=== PATIENT | female | born 1930 | race Caucasian/White ===

== ENCOUNTER 2016-04-13 14:00 | Outpatient (CLI) | payer MEDICARE ==
[2016-04-13 14:21] LABS: Bilirubin Negative (Negative); Blood, Urine Trace (Negative); Glucose, Urine (Dipstick) Negative (Negative); Leukocyte Moderate (Negative); Nitrite Positive (Negative); Specific Gravity, Urine 1.025 (1.005-1.030); Urobilinogen 0.2 mg/dL (0.2-1.0)
[2016-04-13 14:30] LABS: Clarity Hazy (Clear); Protein, Urine (Dipstick) Negative (Neg-Trace)
[2016-04-13 14:31] LABS: Bacteria/HPF Rare-Few HPF (None Seen); Other Microscopic Description C&S SET UP; RBC/HPF 0-3 HPF (0-3); Squamous Epithelial 0-3 HPF (0-3)
== END 2016-04-13 14:01 | disposition home or self-care (01) ==
LOC: MADLAB 14:00
PROVIDERS: ATTEND Pediatrics
DX: N39.0 Urinary tract infection, site not specified (principal)
CPT/HCPCS: 81001; 87077; 87086; 87186

== ENCOUNTER 2016-04-27 14:37 | Outpatient (CLI) | payer MEDICARE ==
[2016-04-27 14:49] LABS: Blood, Urine Negative (Negative); Clarity Cloudy (Clear); Glucose, Urine (Dipstick) 100 mg/dL (Negative); Leukocyte Large (Negative); Nitrite Positive (Negative); Protein, Urine (Dipstick) 100 mg/dL (Neg-Trace)
[2016-04-27 15:01] LABS: Bilirubin Negative (Negative); Icto Negative (Negative)
[2016-04-27 15:03] LABS: Bacteria/HPF 3+ HPF (None Seen); Other Microscopic Description C&S SET UP; RBC/HPF 0-3 HPF (0-3); Squamous Epithelial 0-3 HPF (0-3); WBC/HPF 21-50 HPF (0-3)
== END 2016-04-27 14:38 | disposition home or self-care (01) ==
LOC: MADLAB 14:37
PROVIDERS: ATTEND Pediatrics
DX: R30.0 Dysuria (principal)
CPT/HCPCS: 36415; 81001; 87086

== ENCOUNTER 2016-05-08 13:17 | Outpatient (CLI) | payer MEDICARE ==
[2016-05-08 13:41] LABS: INR-International Normal Ratio 1.1; Prothrombin Time 14.9 SEC (12.0-14.7)
[2016-05-08 13:44] LABS: Hemoglobin 10.9 g/dL (12.0-16.0); Mean Corpuscular HGB CONC 35.3 g/dL (32.0-36.0); Mean Corpuscular Hemoglobin 33.9 pg (27.0-31.0); Mean Corpuscular Volume 96.2 fl (81.0-99.0); Mean Platelet Volume 6.8 fL (7.4-10.4); Platelet Count 243 thou/uL (130-400); White Blood Cell (WBC) Count 6.9 thou/uL (4.8-10.8)
[2016-05-08 13:47] LABS: Anion Gap 15 mmol/L (10-20); BUN (Urea Nitrogen) 19 mg/dL (9.8-20.1); Calc. Creatinine Clearance 0 mL/min (70-130); Calcium 9.1 mg/dL (7.8-10.44); Carbon Dioxide 23 mmol/L (23-31); Chloride 100 mmol/L (98-107); Estimated GFR-MDRD 68; Glucose 89 mg/dL (83-110); Potassium 4.4 mmol/L (3.5-5.1); Sodium 134 mmol/L (136-145)
[2016-05-08 14:06] LABS: Bilirubin Negative (Negative); Blood, Urine Negative (Negative); Clarity Slightly Cloudy (Clear); Glucose, Urine (Dipstick) 100 mg/dL (Negative); Leukocyte Small (Negative); Nitrite Positive (Negative); Protein, Urine (Dipstick) 30 mg/dL (Neg-Trace); Specific Gravity, Urine 1.015 (1.005-1.030)
[2016-05-08 14:33] LABS: RBC/HPF None Seen HPF (0-3)
[2016-05-08 14:34] LABS: Bacteria/HPF 1+ HPF (None Seen)
== END 2016-05-08 13:18 | disposition home or self-care (01) ==
LOC: MADLAB 13:17
PROVIDERS: ATTEND Pediatrics
DX: Z51.81 Encounter for therapeutic drug level monitoring (principal); Z79.01 Long term (current) use of anticoagulants; N39.0 Urinary tract infection, site not specified
CPT/HCPCS: 36415; 80048; 81001; 85027; 85610; 87086

== ENCOUNTER 2016-06-13 15:16 | Outpatient (CLI) | payer MEDICARE ==
[2016-06-13 15:29] LABS: Blood, Urine Negative (Negative); Glucose, Urine (Dipstick) Negative (Negative); Leukocyte Small (Negative); Nitrite Negative (Negative); Protein, Urine (Dipstick) 100 mg/dL (Neg-Trace); Specific Gravity, Urine 1.025 (1.005-1.030); Urobilinogen 0.2 mg/dL (0.2-1.0); pH, Urine 5.5 (5.0-9.0)
[2016-06-13 15:31] LABS: INR-International Normal Ratio 1.1; Prothrombin Time 14.8 SEC (12.0-14.7)
[2016-06-13 15:41] LABS: Bilirubin Small (Negative); Clarity Hazy (Clear)
[2016-06-13 15:43] LABS: Icto Negative (Negative)
[2016-06-13 15:44] LABS: RBC/HPF 0-3 HPF (0-3)
== END 2016-06-13 15:17 | disposition home or self-care (01) ==
LOC: MADLAB 15:16
PROVIDERS: ATTEND Pediatrics
DX: N39.0 Urinary tract infection, site not specified (principal); Z79.01 Long term (current) use of anticoagulants
CPT/HCPCS: 81001; 85610; 87086

== ENCOUNTER 2016-06-21 12:19 | Outpatient (CLI) | payer MEDICARE ==
[2016-06-21 12:47] LABS: INR-International Normal Ratio 1.3; Prothrombin Time 16.6 SEC (12.0-14.7)
== END 2016-06-21 12:20 | disposition home or self-care (01) ==
LOC: MADLAB 12:19
PROVIDERS: ATTEND Pediatrics
DX: Z51.81 Encounter for therapeutic drug level monitoring (principal); Z79.01 Long term (current) use of anticoagulants
CPT/HCPCS: 36415; 85610

== ENCOUNTER 2016-06-25 11:54 | Emergency (ER) | payer MEDICARE ==
[2016-06-25 13:00] LABS: #Lymphocytes 0.7 thou/uL (1.20-3.40); #Monocytes 0.6 thou/uL (0.11-0.59); #Neutrophils 5.9 thou/uL (1.40-6.50); %Basophils 0.7 % (0.0-1.0); %Eosinophils 0.5 % (0.0-10.0); %Lymphocytes 9.9 % (21.0-51.0); %Monocytes 8.3 % (0.0-10.0); %Neutrophils 80.5 % (42.0-75.0); Hemoglobin 11.6 g/dL (12.0-16.0); Mean Corpuscular HGB CONC 34.8 g/dL (32.0-36.0); Mean Corpuscular Hemoglobin 33.1 pg (27.0-31.0); Mean Corpuscular Volume 94.9 fl (81.0-99.0); Mean Platelet Volume 7.3 fL (7.4-10.4); Platelet Count 190 thou/uL (130-400); RBC Distribution Width 11.6 % (11.5-14.5); Red Blood Cell (RBC) Count 3.51 mill/uL (4.20-5.40); White Blood Cell (WBC) Count 7.3 thou/uL (4.8-10.8)
[2016-06-25 13:12] LABS: ALT (SGPT) 11 U/L (0-55); AST (SGOT) 18 U/L (5-34); Albumin 3.7 g/dL (3.4-4.8); Alkaline Phosphatase 60 U/L (40-150); Anion Gap 15 mmol/L (10-20); BUN (Urea Nitrogen) 29 mg/dL (9.8-20.1); Bilirubin, Total 0.5 mg/dL (0.2-1.2); Calc. Creatinine Clearance 0 mL/min (70-130); Calcium 9.3 mg/dL (7.8-10.44); Carbon Dioxide 23 mmol/L (23-31); Chloride 100 mmol/L (98-107); Estimated GFR-MDRD 51; Globulin 3.4 g/dL (2.4-3.5); Glucose 117 mg/dL (83-110); Potassium 4.5 mmol/L (3.5-5.1); Protein, Total 7.1 g/dL (5.8-8.1); Sodium 133 mmol/L (136-145)
[2016-06-25 13:16] LABS: CKMB 1.3 ng/mL (0-6.6); Troponin I Less than 0.010 ng/mL (< 0.028)
--- NOTE | 2016-06-25 13:30 | CT ---
NONCONTRAST CT OF THE BRAIN: Date: 06/25/16 INDICATION: Headache, nausea, and dizziness. COMPARISON: Prior exam dated 06/25/15. FINDINGS: No acute infarct, hemorrhage, or hydrocephalus present. There is stable chronic small vessel white m atter ischemic change. Skull and extracranial soft tissues appear within normal limits. IMPRESSION: No acute intracranial abnormality. POS: [facility]
--- NOTE | 2016-06-25 13:43 | RAD ---
FRONTAL VIEW CHEST: Date: 06/25/16 COMPARISON: 06/25/15. CLINICAL HISTORY: Dizziness. FINDINGS: The cardiac silhouette is enlarged, stable. Left-sided cardiac pacing device remains. There is patch y density at the lateral left lung base. Slight blunting of the costophrenic sulci noted. Biapical p leural irregularity is again seen. There is vascular calcification. IMPRESSION: 1. Evidence of CHF. 2. No significant interval change from 06/25/15 exam. POS: [facility]
== END 2016-06-25 13:43 | disposition home or self-care (01) ==
LOC: MADERS 11:54
DX: R51 Headache (principal); R42 Dizziness and giddiness; I25.10 Atherosclerotic heart disease of native coronary artery without angina pectoris; I10 Essential (primary) hypertension; Z95.0 Presence of cardiac pacemaker; Z79.899 Other long term (current) drug therapy; Z79.01 Long term (current) use of anticoagulants
CPT/HCPCS: 36415; 70450; 71010; 80053; 82553; 84484; 85025; 93005

== ENCOUNTER 2016-06-28 11:35 | Outpatient (CLI) | payer MEDICARE ==
[2016-06-28 17:51] LABS: INR-International Normal Ratio 1.3; Prothrombin Time 16.9 SEC (12.0-14.7)
== END 2016-06-28 11:36 | disposition home or self-care (01) ==
LOC: MADLAB 11:35
PROVIDERS: ATTEND Pediatrics
DX: Z51.81 Encounter for therapeutic drug level monitoring (principal); Z79.01 Long term (current) use of anticoagulants
CPT/HCPCS: 36415; 85610

== ENCOUNTER 2016-07-05 14:51 | Outpatient (CLI) | payer MEDICARE ==
[2016-07-05 15:07] LABS: INR-International Normal Ratio 1.2; Prothrombin Time 15.2 SEC (12.0-14.7)
== END 2016-07-05 14:52 | disposition home or self-care (01) ==
LOC: MADLAB 14:51
PROVIDERS: ATTEND Pediatrics
DX: I48.91 Unspecified atrial fibrillation (principal)
CPT/HCPCS: 36415; 85610

== ENCOUNTER 2016-07-12 14:26 | Outpatient (CLI) | payer MEDICARE ==
[2016-07-12 14:46] LABS: INR-International Normal Ratio 1.7
== END 2016-07-12 14:27 | disposition home or self-care (01) ==
LOC: MADLAB 14:26
PROVIDERS: ATTEND Pediatrics
DX: I48.91 Unspecified atrial fibrillation (principal)
CPT/HCPCS: 36415; 85610

== ENCOUNTER 2016-07-31 14:58 | Outpatient (CLI) | payer MEDICARE ==
[2016-07-31 15:28] LABS: INR-International Normal Ratio 1.6; Prothrombin Time 19.5 SEC (12.0-14.7)
[2016-07-31 16:51] LABS: Clarity Hazy (Clear)
[2016-07-31 16:52] LABS: Bacteria/HPF 4+ HPF (None Seen); Bilirubin Negative (Negative); Blood, Urine Negative (Negative); Glucose, Urine (Dipstick) Negative (Negative); Leukocyte Moderate (Negative); Nitrite Negative (Negative); Protein, Urine (Dipstick) Negative (Neg-Trace); RBC/HPF 0-3 HPF (0-3); Urobilinogen 0.2 mg/dL (0.2-1.0)
== END 2016-07-31 14:59 | disposition home or self-care (01) ==
LOC: MADLAB 14:58
PROVIDERS: ATTEND Pediatrics
DX: Z51.81 Encounter for therapeutic drug level monitoring (principal); I48.91 Unspecified atrial fibrillation; N39.0 Urinary tract infection, site not specified; Z79.01 Long term (current) use of anticoagulants
CPT/HCPCS: 36415; 81001; 85610; 87077; 87086; 87186

== ENCOUNTER 2016-08-13 14:39 | Outpatient (CLI) | payer MEDICARE ==
[2016-08-13 15:25] LABS: Clarity Hazy (Clear); Glucose, Urine (Dipstick) Negative (Negative); Leukocyte Small (Negative); Nitrite Negative (Negative); Protein, Urine (Dipstick) 30 mg/dL (Neg-Trace)
[2016-08-13 15:26] LABS: Bacteria/HPF 2+ HPF (None Seen); Bilirubin Negative (Negative); Blood, Urine Negative (Negative); RBC/HPF 0-3 HPF (0-3); Urobilinogen 0.2 mg/dL (0.2-1.0); WBC/HPF 21-50 HPF (0-3)
== END 2016-08-13 14:40 | disposition home or self-care (01) ==
LOC: MADLAB 14:39
PROVIDERS: ATTEND Pediatrics
DX: Z51.81 Encounter for therapeutic drug level monitoring (principal); Z87.440 Personal history of urinary (tract) infections; Z79.01 Long term (current) use of anticoagulants
CPT/HCPCS: 36415; 81001; 87086

== ENCOUNTER 2016-08-23 11:39 | Outpatient (CLI) | payer MEDICARE ==
[2016-08-23 13:30] LABS: INR-International Normal Ratio 1.9; Prothrombin Time 21.6 SEC (12.0-14.7)
== END 2016-08-23 11:40 | disposition home or self-care (01) ==
LOC: MADLAB 11:39
PROVIDERS: ATTEND Pediatrics
DX: Z51.81 Encounter for therapeutic drug level monitoring (principal); I48.91 Unspecified atrial fibrillation; Z79.01 Long term (current) use of anticoagulants
CPT/HCPCS: 36415; 85610

== ENCOUNTER 2016-09-10 15:23 | Outpatient (CLI) | payer MEDICARE ==
[2016-09-10 15:38] LABS: INR-International Normal Ratio 1.5; Prothrombin Time 18.2 SEC (12.0-14.7)
== END 2016-09-10 15:24 | disposition home or self-care (01) ==
LOC: MADLAB 15:23
PROVIDERS: ATTEND Pediatrics
DX: Z51.81 Encounter for therapeutic drug level monitoring (principal); I48.91 Unspecified atrial fibrillation; Z79.01 Long term (current) use of anticoagulants
CPT/HCPCS: 85610

== ENCOUNTER 2016-09-13 13:56 | Outpatient (CLI) | payer MEDICARE ==
[2016-09-13 14:22] LABS: INR-International Normal Ratio 1.4; Prothrombin Time 17.7 SEC (12.0-14.7)
== END 2016-09-13 13:57 | disposition home or self-care (01) ==
LOC: MADLAB 13:56
PROVIDERS: ATTEND Pediatrics
DX: Z51.81 Encounter for therapeutic drug level monitoring (principal); Z79.01 Long term (current) use of anticoagulants
CPT/HCPCS: 36415; 85610

== ENCOUNTER 2016-09-14 11:50 | Outpatient (CLI) | payer MEDICARE ==
[2016-09-14 13:15] LABS: Clarity Cloudy (Clear)
[2016-09-14 13:16] LABS: Bilirubin Negative (Negative); Blood, Urine Negative (Negative); Glucose, Urine (Dipstick) Negative (Negative); Leukocyte Moderate (Negative); Nitrite Negative (Negative); Protein, Urine (Dipstick) Negative (Neg-Trace); Urobilinogen 0.2 mg/dL (0.2-1.0)
[2016-09-14 13:31] LABS: Bacteria/HPF 2+ HPF (None Seen); Hyaline Casts/LPF 0-3 HYALINE CAST LPF (0-3 Hyaline); RBC/HPF 0-3 HPF (0-3); Squamous Epithelial 0-3 HPF (0-3)
== END 2016-09-14 11:51 | disposition home or self-care (01) ==
LOC: MADLAB 11:50
PROVIDERS: ATTEND Pediatrics
DX: N39.0 Urinary tract infection, site not specified (principal)
CPT/HCPCS: 36415; 81001; 87077; 87086

== ENCOUNTER 2016-09-20 10:28 | Outpatient (CLI) | payer MEDICARE ==
[2016-09-20 11:30] LABS: Clarity Hazy (Clear); Glucose, Urine (Dipstick) Negative (Negative); Leukocyte Small (Negative); Nitrite Negative (Negative); Protein, Urine (Dipstick) Negative (Neg-Trace)
[2016-09-20 11:31] LABS: Bacteria/HPF Rare-Few HPF (None Seen); Bilirubin Negative (Negative); Blood, Urine Negative (Negative); RBC/HPF 0-3 HPF (0-3); Urobilinogen 0.2 mg/dL (0.2-1.0)
== END 2016-09-20 10:29 | disposition home or self-care (01) ==
LOC: MADLAB 10:28
PROVIDERS: ATTEND Pediatrics
DX: N39.0 Urinary tract infection, site not specified (principal)
CPT/HCPCS: 81001; 87086

== ENCOUNTER 2016-10-04 17:01 | Outpatient (CLI) | payer MEDICARE ==
[2016-10-04 17:55] LABS: Clarity Slightly Cloudy (Clear); Leukocyte Moderate (Negative); Nitrite Positive (Negative); Specific Gravity, Urine 1.025 (1.002-1.036)
[2016-10-04 17:56] LABS: Glucose, Urine (Dipstick) Negative (Negative); Icto Negative (Negative); Protein, Urine (Dipstick) 100 mg/dL (Neg-Trace)
[2016-10-04 17:57] LABS: Bilirubin Negative (Negative); Blood, Urine Trace (Negative)
[2016-10-04 17:58] LABS: Bacteria/HPF 2+ HPF (None Seen); RBC/HPF 0-3 HPF (0-3)
== END 2016-10-04 17:02 | disposition home or self-care (01) ==
LOC: MADLAB 17:01
PROVIDERS: ATTEND Pediatrics
DX: N39.0 Urinary tract infection, site not specified (principal)
CPT/HCPCS: 81001; 87077; 87086; 87186

== ENCOUNTER 2016-10-08 13:30 | Outpatient (CLI) | payer MEDICARE ==
[2016-10-08 13:58] LABS: INR-International Normal Ratio 1.7; Prothrombin Time 20.9 SEC (12.0-14.7)
== END 2016-10-08 13:31 | disposition home or self-care (01) ==
LOC: MADLAB 13:30
PROVIDERS: ATTEND Pediatrics
DX: Z51.81 Encounter for therapeutic drug level monitoring (principal); Z79.01 Long term (current) use of anticoagulants
CPT/HCPCS: 36415; 85610

== ENCOUNTER 2016-10-18 15:58 | Outpatient (CLI) | payer MEDICARE ==
[2016-10-18 17:05] LABS: INR-International Normal Ratio 3.3; Prothrombin Time 34.8 SEC (12.0-14.7)
[2016-10-18 17:20] LABS: Clarity Cloudy (Clear); Specific Gravity, Urine 1.015 (1.005-1.030)
[2016-10-18 17:21] LABS: Bilirubin Negative (Negative); Blood, Urine Trace (Negative); Glucose, Urine (Dipstick) Negative (Negative); Leukocyte Moderate (Negative); Nitrite Positive (Negative); Protein, Urine (Dipstick) Negative (Neg-Trace); Urobilinogen 0.2 mg/dL (0.2-1.0); pH, Urine 5.5 (5.0-9.0)
[2016-10-18 17:22] LABS: RBC/HPF 0-3 HPF (0-3)
[2016-10-18 17:23] LABS: Bacteria/HPF 4+ HPF (None Seen)
== END 2016-10-18 15:59 | disposition home or self-care (01) ==
LOC: MADLAB 15:58
PROVIDERS: ATTEND Pediatrics
DX: N39.0 Urinary tract infection, site not specified (principal)
CPT/HCPCS: 81001; 85610

== ENCOUNTER 2016-10-25 15:24 | Outpatient (CLI) | payer MEDICARE ==
[2016-10-25 15:41] LABS: INR-International Normal Ratio 3.4
[2016-10-25 16:06] LABS: Bilirubin Small (Negative); Clarity Cloudy (Clear); Glucose, Urine (Dipstick) Negative (Negative); Icto Positive (Negative); Leukocyte Large (Negative); Nitrite Negative (Negative); Protein, Urine (Dipstick) 30 mg/dL (Neg-Trace); Urobilinogen 0.2 mg/dL (0.2-1.0)
[2016-10-25 16:07] LABS: Blood, Urine Trace (Negative)
[2016-10-25 16:08] LABS: Bacteria/HPF 4+ HPF (None Seen); Other Casts/LPF None Seen LPF (0-3 Hyaline); RBC/HPF 0-3 HPF (0-3)
== END 2016-10-25 15:25 | disposition home or self-care (01) ==
LOC: MADLAB 15:24
PROVIDERS: ATTEND Pediatrics
DX: Z51.81 Encounter for therapeutic drug level monitoring (principal); N39.0 Urinary tract infection, site not specified; Z79.01 Long term (current) use of anticoagulants
CPT/HCPCS: 81001; 85610; 87077; 87086; 87186

== ENCOUNTER 2016-11-01 14:17 | Outpatient (CLI) | payer MEDICARE ==
[2016-11-01 14:32] LABS: Prothrombin Time 45.8 SEC (12.0-14.7)
[2016-11-01 14:40] LABS: INR-International Normal Ratio 4.6
== END 2016-11-01 14:18 | disposition home or self-care (01) ==
LOC: MADLAB 14:17
PROVIDERS: ATTEND Pediatrics
DX: Z51.81 Encounter for therapeutic drug level monitoring (principal); Z79.01 Long term (current) use of anticoagulants
CPT/HCPCS: 36415; 85610

== ENCOUNTER 2016-11-08 14:38 | Outpatient (CLI) | payer MEDICARE ==
[2016-11-08 14:44] LABS: INR-International Normal Ratio 3.8
== END 2016-11-08 14:39 | disposition home or self-care (01) ==
LOC: MADLAB 14:38
PROVIDERS: ATTEND Pediatrics
DX: Z51.81 Encounter for therapeutic drug level monitoring (principal); I48.91 Unspecified atrial fibrillation; Z79.01 Long term (current) use of anticoagulants
CPT/HCPCS: 36415; 85610

== ENCOUNTER 2016-11-15 15:20 | Outpatient (CLI) | payer MEDICARE ==
[2016-11-15 15:34] LABS: Bilirubin Negative (Negative); Blood, Urine Trace (Negative); Glucose, Urine (Dipstick) Negative (Negative); Leukocyte Moderate (Negative); Nitrite Negative (Negative); Protein, Urine (Dipstick) 30 mg/dL (Neg-Trace); Specific Gravity, Urine 1.025 (1.005-1.030); Urobilinogen 0.2 mg/dL (0.2-1.0)
[2016-11-15 15:35] LABS: Clarity Hazy (Clear)
[2016-11-15 15:38] LABS: RBC/HPF 0-3 HPF (0-3); WBC/HPF 21-50 HPF (0-3)
[2016-11-15 15:39] LABS: Bacteria/HPF Rare-Few HPF (None Seen)
== END 2016-11-15 15:21 | disposition home or self-care (01) ==
LOC: MADLABSP 15:20
PROVIDERS: ATTEND Pediatrics
DX: N39.0 Urinary tract infection, site not specified (principal)
CPT/HCPCS: 81001; 87077; 87086; 87186

== ENCOUNTER 2016-11-19 17:41 | Outpatient (CLI) | payer MEDICARE ==
[2016-11-19 18:44] LABS: INR-International Normal Ratio 2.5; Prothrombin Time 27.8 SEC (12.0-14.7)
== END 2016-11-19 17:42 | disposition home or self-care (01) ==
LOC: MADLABSP 17:41
PROVIDERS: ATTEND Pediatrics
DX: Z51.81 Encounter for therapeutic drug level monitoring (principal); I48.91 Unspecified atrial fibrillation; Z79.01 Long term (current) use of anticoagulants
CPT/HCPCS: 85610

== ENCOUNTER 2017-09-13 12:24 | Emergency (ER) | payer MEDICARE ==
[2017-09-13 13:19] LABS: Bilirubin Negative (Negative); Blood, Urine Trace (Negative); Clarity Slightly Cloudy (Clear); Glucose, Urine (Dipstick) Negative (Negative); Leukocyte Large (Negative); Nitrite Positive (Negative); Protein, Urine (Dipstick) 100 mg/dL (Neg-Trace); Urobilinogen 0.2 mg/dL (0.2-1.0)
[2017-09-13 13:20] LABS: Bacteria/HPF 4+ HPF (None Seen); RBC/HPF 0-3 HPF (0-3)
[2017-09-13 13:29] LABS: #Monocytes 0.7 thou/uL (0.11-0.59); %Basophils 0.7 % (0.0-1.0); %Eosinophils 0.3 % (0.0-10.0); %Lymphocytes 14.1 % (21.0-51.0); %Monocytes 10.2 % (0.0-10.0); %Neutrophils 74.6 % (42.0-75.0); Mean Corpuscular HGB CONC 33.1 g/dL (32.0-36.0); Mean Corpuscular Volume 93.8 fL (78.0-98.0); Mean Platelet Volume 6.9 fL (7.4-10.4); Platelet Count 177 thou/uL (130-400); RBC Distribution Width 11.7 % (11.5-14.5); Red Blood Cell (RBC) Count 3.86 mill/uL (4.20-5.40); White Blood Cell (WBC) Count 6.7 thou/uL (4.8-10.8)
[2017-09-13] MEDS ORDERED: cefTRIAXone\\ROCEPHIN 1 GM VIAL ONE (13:40)
[2017-09-13 13:42] LABS: ALT (SGPT) 8 U/L (8-55); AST (SGOT) 15 U/L (5-34); Albumin 3.6 g/dL (3.4-4.8); Alkaline Phosphatase 55 U/L (40-150); Anion Gap 14 mmol/L (10-20); BUN (Urea Nitrogen) 24 mg/dL (9.8-20.1); Bilirubin, Total 0.5 mg/dL (0.2-1.2); Calc. Creatinine Clearance 0 mL/min (70-130); Calcium 8.3 mg/dL (7.8-10.44); Carbon Dioxide 24 mmol/L (23-31); Chloride 103 mmol/L (98-107); Estimated GFR-MDRD 41; Globulin 3.2 g/dL (2.4-3.5); Glucose 96 mg/dL (83-110); Magnesium 1.4 mg/dL (1.6-2.6); Potassium 3.5 mmol/L (3.5-5.1); Protein, Total 6.8 g/dL (6.0-8.3); Sodium 137 mmol/L (136-145)
--- NOTE | 2017-09-13 13:59 | RAD ---
AP VIEW CHEST: Date: 09/13/17 INDICATION: Hypotension and weakness. COMPARISON: Prior exam dated 06/25/16. IMPRESSION: There is moderate cardiomegaly with mild pulmonary vascular congestion. There is perihilar interstiti al prominence suspicious for edema. No definite pleural effusion or pneumothorax is evident. AICD is unchanged from the comparison. POS: [facility]
== END 2017-09-13 14:40 | disposition home or self-care (01) ==
LOC: MADERS 12:24
DX: N39.0 Urinary tract infection, site not specified (principal); J81.1 Chronic pulmonary edema; I25.10 Atherosclerotic heart disease of native coronary artery without angina pectoris; I10 Essential (primary) hypertension; G30.9 Alzheimer's disease, unspecified; F02.80 Dementia in other diseases classified elsewhere, unspecified severity, without behavioral disturbance, psychotic disturbance, mood disturbance, and anxiety
CPT/HCPCS: 71045; 80053; 81003; 81015; 83605; 83735; 84484; 85025; 87040; 87077; 87086; 87186; 93005; 96374; A4353; J0696

== ENCOUNTER 2017-12-11 11:57 | Inpatient (IN) | payer MEDICARE ==
[2017-12-11] MEDS ORDERED: Acetaminophen 325 MG TAB PO PRN (16:15)
[2017-12-11] MEDS: Atorvastatin Calcium 10 MG TAB PO SCH (20:45)
[2017-12-11] MEDS: Brimonidine Tartrate 0.2% Ophth Soln 5 ml Bottle EA EYE SCH (20:45)
[2017-12-11] MEDS: Carvedilol 6.25 MG TAB PO SCH (20:46)
[2017-12-11] MEDS: Mirtazapine 15 MG TAB PO SCH (20:46)
[2017-12-11] MEDS: Latanoprost 0.005% Ophth Soln 2.5 ml Bottle EA EYE SCH (20:46)
--- NOTE | 2017-12-11 23:33 | HP ---
Admitted to [facility] on 12/11/2017 CHIEF COMPLAINT: Weak. HISTORY OF PRESENT ILLNESS: Patient is an 87-year-old white female who has a history of atrial fibri llation, hypertension, has a pacemaker due to bradycardia. She has been on anticoagulants with Couma din due to the atrial fibrillation. She has a distant history of breast cancer, for which she has lyn d no recurrence and years ago had gastric bypass surgery. The patient lives at her home where she is independent of her ADLs, uses a walker to assist with ambulation and does not drive. She does have a caregiver that comes in and helps during the day and often times stays at night but patient was hos pitalized at [facility] from 12/05/2017 until 12/11/2017 after a fall and possible syncopal spell in her home. Apparently, she remembers falling, but nothing else a caregiver came in the follo wing morning, found her on the floor and she was a little confused and was bruised on the right shoul dee. She was taken to the emergency room and transferred to [facility]. She was evaluated for possible syncopal episode, and it is unclear from the history whether she just had a syncopal episode or trip and fall. She was found to have a urinary tract infection with E. coli wi th a colony count greater than 100,000. She was treated with nitrofurantoin, which the organism was sensitive to the little confusion that was noted on the initial examination are resolved. The patien t's evaluation disclosed that she had a closed mildly comminuted and mildly displaced impacted fractu re of the proximal humerus. Orthopedic surgeon recommended to managing this in a sling and both gene ral range of motion of the arms of the hand, wrist, and elbow and as she improves and pain diminishes for range of motion of the shoulder. Patient's syncopal spell was worked up with a CT scan of the c ircle of Basurto and neck did not show any significant stenosis. She did have a little retained dye i n the esophagus, possibly related to her previous gastric bypass. She has a CT scan of the brain, wh ich did not show any acute intracranial abnormality. Her chest x-ray showed a little prominence of t he cardiac silhouette in presence of a pacemaker. There was a little prominence of the interstitial tissue. Patient was seen in consultation by sugar cane grower. Echocardiogram was done and showed EF of 55%-60%, moderately dilated left atrium, and enlarged for the right atrium. Left ventricle was mary l. There was [id number] tricuspid regurgitation, mild mitral regurgitation. Patient had no mo re falls or syncopal episode. She has been up with assistance a chair and walk short distance, but s till very weak and arm is in a sling, but due to her age, it is elected to switch her to Eliquis 2.5 mg b.i.d. instead of a Coumadin. She received her first dose of that in the morning on 12/11/2017. INR on 12/11/2017, she was 2.7. Her Coumadin has been stopped and her Eliquis will be held until the INR drops further. Patient was transferred to [facility] due to the weakness and an effort to try to help with her general strength and conditioning and care of the fracture of the right proxima l humerus. The patient was seen soon after her arrival, she was alert and talkative and was able to give me a go od history. She said that she remembers falling, but nothing after that really not sure what happene d. Patient has no history of any seizures. PAST MEDICAL HISTORY: Chronic atrial fibrillation, pacemaker for bradycardia, hypertension, cancer of the right breast for which she has undergone a mastectomy approximately 8 years ago. No history of any recurrence. She has had a gastric bypass years ago. She has also had a kyphoplasty of lower thoracic vertebrae and she has glaucoma and hyperlipidemia. PRESENT MEDICINES: Eliquis 2.5 mg b.i.d. started on evening of 12/10/2017, omeprazole 20 mg b.i.d., Lumigan 1 drop in the eyes at bedtime, Alphagan 0.2% 1 drop in the eyes b.i.d., Xalatan 0.005% one dr op in the eyes at bedtime, mirtazapine 30 mg at bedtime, lisinopril 2.5 mg daily, atorvastatin 40 mg at bedtime, acetaminophen 650 mg every 4 hours as needed. ALLERGIES: No known allergies. REVIEW OF SYSTEMS: Patient does not think she has had any recent weight gain or loss. Patient has h ad no recent fever. Head/Neck: No complaints. Pulmonary: No shortness of breath. Cardiovascular: No chest pain. GI: No nausea, vomiting. No change in her bowel habits. : No complaint. Musc uloskeletal: Ambulates usually with a walker and late, he has been sore from right shoulder from the fall and fracture. She has been taking Tylenol this seems to have worked very well for pain. HABITS: Alcohol. ALLERGIES: None. TOBACCO: None. ADLs: Patient prior to this hospitalization was independent of her ADLs, ambulate with a walker. Lyn s caregiver to assist her though in the home and assist with her instrumental ADLs. She does not dri ve. CODE STATUS: DNR. PHYSICAL EXAMINATION: GENERAL: Shows a very pleasant, talkative 87-year-old white female who is sitting up in bed and appe ars very comfortable. VITAL SIGNS: Her temperature is 97.1, pulse 68, respirations 18, O2 sat 96%, blood pressure 182/93. Her weight is 124. HEAD: Normocephalic and atraumatic. EYES: Pupils were equal, round, reactive. HEENT: Sclerae are nonicteric. Patient had bilateral lens implants after cataracts removed. Ears: TMs were clear. Nose normal. Mouth throat. CARDIAC: Normal. NECK: Carotids were equal and strong. No bruits. Thyroid not enlarged. LUNGS: Clear. Chest, patient has a pacemaker in the left upper anterior chest. Patient has had a ri ght mastectomy. HEART: Regular rate. No murmurs. ABDOMEN: Soft, no organomegaly, no areas of tenderness in the right upper extremity. There is bruis ing and swelling over the right shoulder with extravasation of the blood down the upper arm. Patient has marked decreased motion in the upper arm due to the fracture. She has good motion of the elbow and wrist. Lower extremities: No edema. NEUROLOGIC: Patient is alert, oriented to what happened to where she is, place and person. She has no focal weakness except the right arm is in a sling due to the fracture. IMPRESSION: 1. Generalized weakness. A. Ordinarily independent of her ADLs and ambulates with a walker. B. Since her fall and fracture of the right proximal humerus. She has been weak and had difficulty managing ADLs and ambulating. 2. Closed mildly comminuted impacted with mild displacement of the proximal right humerus secondary to the fall on 12/05/2017. They managed nonoperatively with the sling and range of motion exercises within her tolerance that will be progressed within, has healing occurs. 3. Fall/possible syncopal episode. A. Etiology not known, possible episode of orthostatic hypotension versus fall from tripping. 4. Chronic atrial fibrillation. A. Rate control. B. On chronic anticoagulation originally, Coumadin switched to Eliquis on the evening of 12/10. 5. Status post pacemaker insertion for bradycardia. 6. Hypertension. 7. Cancer of the breast. A. Status post right mastectomy approximately 2009. B. No history of any recurrence. 8. Recent urinary tract infection with Escherichia coli with colony count greater than 100,000 and o rganisms sensitive to nitrofurantoin, they completed 5-day course of nitrofurantoin. 9. Glaucoma. 10. Code status: DNR. PLAN: Patient is admitted to [facility] for purposes of physical therapy and OT. Patient with hopes that her functional capability improved that will allow her to return to her home. Her arms b eing managed in a sling. We will allow range of motion exercises of the fingers, wrist, and elbow as she improves and after a couple of weeks, we will try range of motion of the shoulder. Her INR this morning was 2.7. Her Coumadin has been stopped and she received the dose of Eliquis this morning. We will hold the dosing of the Eliquis until INR drops a little lower probably a 3-day period. We wi ll recheck INR in the morning, up in a chair is tolerated, brought up with assistants only, see order s.
[2017-12-12] MEDS: Acetaminophen 325 MG TAB PO PRN ×2 (01:25→17:50)
[2017-12-12 05:43] LABS: #Basophils 0.1 thou/uL (0.0-0.2); #Eosinphils 0.1 thou/uL (0.0-0.7); #Lymphocytes 0.6 thou/uL (1.20-3.40); #Monocytes 0.6 thou/uL (0.11-0.59); #Neutrophils 4.5 thou/uL (1.40-6.50); %Eosinophils 1.5 % (0.0-10.0); %Lymphocytes 9.8 % (21.0-51.0); %Monocytes 10.9 % (0.0-10.0); %Neutrophils 76.9 % (42.0-75.0); Hemoglobin 10.9 g/dL (12.0-16.0); Mean Corpuscular HGB CONC 35.9 g/dL (32.0-36.0); Mean Corpuscular Hemoglobin 33.1 pg (27.0-31.0); Mean Corpuscular Volume 92.1 fL (78.0-98.0); Mean Platelet Volume 6.5 fL (7.4-10.4); Platelet Count 215 thou/uL (130-400); RBC Distribution Width 11.9 % (11.5-14.5); Red Blood Cell (RBC) Count 3.29 mill/uL (4.20-5.40); White Blood Cell (WBC) Count 5.8 thou/uL (4.8-10.8)
[2017-12-12 05:49] LABS: INR-International Normal Ratio 1.7; Prothrombin Time 19.9 SEC (12.0-14.7)
[2017-12-12 05:59] LABS: ALT (SGPT) 19 U/L (8-55); AST (SGOT) 30 U/L (5-34); Albumin 3.5 g/dL (3.4-4.8); Alkaline Phosphatase 68 U/L (40-150); Anion Gap 13 mmol/L (10-20); BUN (Urea Nitrogen) 12 mg/dL (9.8-20.1); Bilirubin, Total 1.2 mg/dL (0.2-1.2); Calc. Creatinine Clearance 44 mL/min (70-130); Calcium 8.9 mg/dL (7.8-10.44); Carbon Dioxide 29 mmol/L (23-31); Chloride 99 mmol/L (98-107); Estimated GFR-MDRD 67; Globulin 3.2 g/dL (2.4-3.5); Glucose 95 mg/dL (83-110); Potassium 3.8 mmol/L (3.5-5.1); Protein, Total 6.7 g/dL (6.0-8.3); Sodium 137 mmol/L (136-145)
[2017-12-12] MEDS: Brimonidine Tartrate 0.2% Ophth Soln 5 ml Bottle EA EYE SCH ×2 (08:42→20:03)
[2017-12-12] MEDS: Carvedilol 6.25 MG TAB PO SCH ×2 (08:43→17:47)
[2017-12-12] MEDS: Lisinopril 5 MG TAB PO SCH (08:43)
[2017-12-12] MEDS ORDERED: Lisinopril 5 MG TAB PO SCH (09:00)
--- NOTE | 2017-12-12 09:23 | PRG ---
DATE OF SERVICE: 12/12/2017 SUBJECTIVE: The patient said she is doing okay this morning, she is comfortable. Two ladies are in the room visiting with her that are her caregivers. They say that she has help around the clock 7 da ys a week and that will be the plans once she is able and if she is able to go home. OBJECTIVE: The patient is sitting up in bed, is alert, appears very comfortable and in no distress. Her vital signs show a temperature of 96.5, pulse 67, respirations 18, O2 sat 96% on room air, blood pressure 186/81 last evening it was 185/85. Her lungs were clear. Heart, regular rate. Right arm is in a sling. There is still swelling in the right shoulder and right arm is the same. Her labs shows a H&H of 10.9 and 30.3, white cell count 5800 with 77% segs, 10% lymphocytes, and a pl atelet count of 215,000. Her PT is 19.9, INR 1.7, sodium 137, potassium 3.9, BUN 12, creatinine 0.81 . Albumin is 3.5. ASSESSMENT: 1. Generalized weakness. A. Ordinarily independent of her ADLs and ambulates with a walker. B. Since her fall and fracture of the right proximal humerus. She has been weak and had difficulty managing ADLs and ambulating. C. PT and OT initiating care today as of 12/12/2017. 2. Closed mildly comminuted impacted with mild displacement of the proximal right humerus secondary to the fall on 12/05/2017. They managed nonoperatively with the sling and range of motion exercises within her tolerance that will be progressed within, as healing occurs. A. Stable and comfortable as of 12/12/2017. 3. Fall/possible syncopal episode. A. Etiology not known, possible episode of orthostatic hypotension versus fall from tripping. 4. Chronic atrial fibrillation. A. Rate control. B. On chronic anticoagulation originally, Coumadin switched to Eliquis on the evening of 12/10. 5. Status post pacemaker insertion for bradycardia. 6. Hypertension. A. Blood pressure not adequately controlled. 7. Cancer of the breast. A. Status post right mastectomy approximately 2009. B. No history of any recurrence. 8. Recent urinary tract infection with Escherichia coli with colony count greater than 100,000 and o rganisms sensitive to nitrofurantoin, they completed 5-day course of nitrofurantoin. 9. Glaucoma. 10. Code status: DNR. PLAN: PT and OT are initiating care. Her right arm will be kept in a sling, but allows some range of motion of the hand, wrist and elbow. Will continue to hold the Eliquis, recheck her PT and INR to [facility]. Once this is a little lower we will be able to restart this probably be 1-2 days before this will be restarted. We will increase the patient's lisinopril to 5 mg.
[2017-12-12] MEDS: Apixaban 5 MG TAB PO SCH ×5 (09:32→20:04)
[2017-12-12] MEDS: traMADol HCl 50 MG TAB PO PRN (19:54)
[2017-12-12] MEDS: Latanoprost 0.005% Ophth Soln 2.5 ml Bottle EA EYE SCH (20:03)
[2017-12-12] MEDS: Atorvastatin Calcium 10 MG TAB PO SCH (20:04)
[2017-12-12] MEDS: Mirtazapine 15 MG TAB PO SCH (20:04)
[2017-12-13] MEDS: Carvedilol 6.25 MG TAB PO SCH ×2 (12:35→17:24)
[2017-12-13] MEDS: Brimonidine Tartrate 0.2% Ophth Soln 5 ml Bottle EA EYE SCH ×2 (12:36→20:17)
[2017-12-13] MEDS: Lisinopril 5 MG TAB PO SCH (12:36)
[2017-12-13] MEDS: Apixaban 5 MG TAB PO SCH ×2 (12:36→20:17)
[2017-12-13 13:09] LABS: INR-International Normal Ratio 1.7; Prothrombin Time 20.1 SEC (12.0-14.7)
--- NOTE | 2017-12-13 14:52 | PRG ---
DATE OF SERVICE: 12/13/2017 SUBJECTIVE: The patient is feeling very good this morning. She is not hurting. She slept all night . Last night, she had some pain in the right upper arm from the fracture and the Tylenol did not hol d her. She was given tramadol 50 mg 1 tablet and this worked extremely well. She slept well and was free of pain. OBJECTIVE: GENERAL: The patient is sitting up in bed. She is alert, talkative, appears very comfortable. ROSENDO L SIGNS: Show a temperature of 97.3, pulse 71, respirations 20, O2 sat 95% on room air, blood pressu re 146/69 lying in bed. LUNGS: Clear. HEART: Regular rate. EXTREMITIES: Right shoulder, there is a yellowish bruise in the right shoulder with more bluish disc oloration of the extravasated blood down the right upper arm. The swelling seems to be a little less . ASSESSMENT: 1. Generalized weakness. A. Ordinarily independent of her ADLs and ambulates with a walker. B. Since her fall and fracture of the right proximal humerus. She has been weak and had difficulty managing ADLs and ambulating. C. PT and OT initiating care today as of 12/12/2017. D. Improved, tolerating sitting up in a chair and walking short distances as of 12/13/2017. 2. Closed mildly comminuted impacted with mild displacement of the proximal right humerus secondary to the fall on 12/05/2017. They managed nonoperatively with the sling and range of motion exercises within her tolerance that will be progressed within, as healing occurs. A. Stable and comfortable as of 12/13/2017. 3. Fall/possible syncopal episode. A. Etiology not known, possible episode of orthostatic hypotension versus fall from tripping. B. No recurrence as of 12/13/2017. 4. Chronic atrial fibrillation. A. Rate control. B. On chronic anticoagulation originally, Coumadin switched to Eliquis on the evening of 12/10. 5. Status post pacemaker insertion for bradycardia. 6. Hypertension. A. Blood pressure not adequately controlled. 7. Cancer of the breast. A. Status post right mastectomy approximately 2009. B. No history of any recurrence. 8. Recent urinary tract infection with Escherichia coli with colony count greater than 100,000 and o rganisms sensitive to nitrofurantoin, they completed 5-day course of nitrofurantoin. 9. Glaucoma. 10. Code status: DNR. PLAN: Continue present care. Continue PT, OT. Continue the right arm in the splint.
[2017-12-13] MEDS: traMADol HCl 50 MG TAB PO PRN (20:15)
[2017-12-13] MEDS: Atorvastatin Calcium 10 MG TAB PO SCH (20:16)
[2017-12-13] MEDS: Mirtazapine 15 MG TAB PO SCH (20:16)
[2017-12-13] MEDS: Latanoprost 0.005% Ophth Soln 2.5 ml Bottle EA EYE SCH (20:16)
[2017-12-14 05:49] LABS: INR-International Normal Ratio 1.5
[2017-12-14] MEDS: Apixaban 5 MG TAB PO SCH ×2 (08:11→20:35)
[2017-12-14] MEDS: Carvedilol 6.25 MG TAB PO SCH ×2 (08:11→16:55)
[2017-12-14] MEDS: Lisinopril 5 MG TAB PO SCH (08:11)
[2017-12-14] MEDS: Brimonidine Tartrate 0.2% Ophth Soln 5 ml Bottle EA EYE SCH ×2 (08:12→20:35)
[2017-12-14] MEDS: Acetaminophen 325 MG TAB PO PRN ×2 (12:55→17:25)
[2017-12-14] MEDS: traMADol HCl 50 MG TAB PO PRN (20:34)
[2017-12-14] MEDS: Latanoprost 0.005% Ophth Soln 2.5 ml Bottle EA EYE SCH (20:35)
[2017-12-14] MEDS: Mirtazapine 15 MG TAB PO SCH (20:35)
[2017-12-14] MEDS: Atorvastatin Calcium 10 MG TAB PO SCH (20:36)
[2017-12-15 05:39] LABS: INR-International Normal Ratio 1.3; Prothrombin Time 16.4 SEC (12.0-14.7)
[2017-12-15] MEDS: Acetaminophen 325 MG TAB PO PRN ×2 (09:20→20:40)
[2017-12-15] MEDS: Apixaban 5 MG TAB PO SCH ×2 (09:20→20:36)
[2017-12-15] MEDS: Carvedilol 6.25 MG TAB PO SCH ×2 (09:20→17:07)
[2017-12-15] MEDS: Brimonidine Tartrate 0.2% Ophth Soln 5 ml Bottle EA EYE SCH ×2 (09:20→20:32)
[2017-12-15] MEDS: Lisinopril 5 MG TAB PO SCH (09:20)
[2017-12-15] MEDS: traMADol HCl 50 MG TAB PO PRN (19:06)
[2017-12-15] MEDS: Latanoprost 0.005% Ophth Soln 2.5 ml Bottle EA EYE SCH (20:32)
[2017-12-15] MEDS: Atorvastatin Calcium 10 MG TAB PO SCH (20:33)
[2017-12-15] MEDS: Mirtazapine 15 MG TAB PO SCH (20:35)
[2017-12-16] MEDS: traMADol HCl 50 MG TAB PO PRN (03:28)
[2017-12-16] MEDS: Brimonidine Tartrate 0.2% Ophth Soln 5 ml Bottle EA EYE SCH ×2 (08:06→21:05)
[2017-12-16] MEDS: Apixaban 5 MG TAB PO SCH ×2 (08:07→21:00)
[2017-12-16] MEDS: Carvedilol 6.25 MG TAB PO SCH ×2 (08:07→17:03)
[2017-12-16] MEDS: Lisinopril 5 MG TAB PO SCH (08:08)
[2017-12-16] MEDS: Acetaminophen 325 MG TAB PO PRN ×2 (08:08→13:15)
--- NOTE | 2017-12-16 09:58 | PRG ---
DATE OF SERVICE: 12/14/2017. SUBJECTIVE: The patient said she is doing alright. She did not rest as well last night, said she wo uld not hurt, just could not sleep. OBJECTIVE: GENERAL: The patient is lying in her bed. She is awake, appears comfortable in no distress. VITAL SIGNS: Show a temperature of 96.8, pulse 63, respirations 16, O2 sat 95% on room air, blood pressure 163/72. LUNGS: Clear. HEART: Regular rate. MUSCULOSKELETAL: Right arm in a sling. There is bruising over the shoulder and upper arm that is sl owly improving. Lower extremities, no edema. ASSESSMENT: 1. Generalized weakness. A. Ordinarily independent of her ADLs and ambulates with a walker. B. Since her fall and fracture of the right proximal humerus. She has been weak and had difficulty managing ADLs and ambulating. C. PT and OT initiating care today as of 12/12/2017. D. Improved, tolerating sitting up in a chair and walking short distances as of 12/14/2017. 2. Closed mildly comminuted impacted with mild displacement of the proximal right humerus secondary to the fall on 12/05/2017. They managed nonoperatively with the sling and range of motion exercises within her tolerance that will be progressed within, as healing occurs. A. Stable and comfortable as of 12/14/2017. 3. Fall/possible syncopal episode. A. Etiology not known, possible episode of orthostatic hypotension versus fall from tripping. B. No recurrence as of 12/14/2017. 4. Chronic atrial fibrillation. A. Rate control. B. On chronic anticoagulation originally, Coumadin switched to Eliquis on the evening of 12/10. 5. Status post pacemaker insertion for bradycardia. 6. Hypertension. A. Blood pressure is improved as of 12/14/2017. 7. Cancer of the breast. A. Status post right mastectomy approximately 2009. B. No history of any recurrence. 8. Recent urinary tract infection with Escherichia coli with colony count greater than 100,000 and o rganisms sensitive to nitrofurantoin, they completed 5-day course of nitrofurantoin. 9. Glaucoma. 10. Code status: DNR. PLAN: Continue present care. Continue PT, OT.
--- NOTE | 2017-12-16 09:59 | PRG ---
DATE OF SERVICE: 12/16/2017 SUBJECTIVE: The patient says she is doing better. Her pain seemed to be well controlled usually jus t with the Tylenol, occasionally she will take a tramadol. This morning she is up in a bedside chair . Her caregiver is sitting in the room with her. OBJECTIVE: The patient is alert, appears very comfortable, in no distress. Her vital signs show a t emperature of 96.4, pulse 81, blood pressure 144/70, respirations 18, O2 sat 94% on room air. Lungs are clear. Heart, regular rate. Right arm is in a sling. The swelling and the bruising is diminish ing in the right shoulder and upper arm. Extremities; no edema. ASSESSMENT: 1. Generalized weakness. A. Ordinarily independent of her ADLs and ambulates with a walker. B. Since her fall and fracture of the right proximal humerus. She has been weak and had difficulty managing ADLs and ambulating. C. PT and OT initiating care today as of 12/12/2017. D. Improved, tolerating sitting up in a chair and walking short distances as of 12/16/2017. 2. Closed mildly comminuted impacted with mild displacement of the proximal right humerus secondary to the fall on 12/05/2017. They managed nonoperatively with the sling and range of motion exercises within her tolerance that will be progressed within, as healing occurs. A. Stable and comfortable as of 12/16/2017. 3. Fall/possible syncopal episode. A. Etiology not known, possible episode of orthostatic hypotension versus fall from tripping. B. No recurrence as of 12/13/2017. 4. Chronic atrial fibrillation. A. Rate control. B. On chronic anticoagulation originally, Coumadin switched to Eliquis on the evening of 12/10. 5. Status post pacemaker insertion for bradycardia. 6. Hypertension. A. Blood pressure not adequately controlled. 7. Cancer of the breast. A. Status post right mastectomy approximately 2009. B. No history of any recurrence. 8. Recent urinary tract infection with Escherichia coli with colony count greater than 100,000 and o rganisms sensitive to nitrofurantoin, they completed 5-day course of nitrofurantoin. 9. Glaucoma. 10. Code status: DNR. PLAN: Continue PT. Her INR from yesterday was down to 1.3. We will continue the Eliquis 2.5 mg b.i .d. This was started on 12/12/2017. I visited with the patient and her caregiver about a potential discharge date toward the end of the week, 12/20/2017.
[2017-12-16] MEDS: Phenazopyridine HCl 97.5 MG TABLET PO PRN (20:59)
[2017-12-16] MEDS: Mirtazapine 15 MG TAB PO SCH (21:01)
[2017-12-16] MEDS: Atorvastatin Calcium 10 MG TAB PO SCH (21:02)
[2017-12-16] MEDS: Latanoprost 0.005% Ophth Soln 2.5 ml Bottle EA EYE SCH (21:03)
[2017-12-17] MEDS: traMADol HCl 50 MG TAB PO PRN (01:27)
[2017-12-17 07:50] LABS: Protein, Urine (Dipstick) Negative (Neg-Trace); pH, Urine 5.5 (5.0-9.0)
[2017-12-17 07:52] LABS: Glucose, Urine (Dipstick) Unable to Interpret mg/dL (Negative); Leukocyte Unable to Interpret (Negative); Nitrite Unable to Interpret (Negative); Specific Gravity, Urine 1.004 (1.002-1.036)
[2017-12-17 07:53] LABS: Bilirubin Unable to Interpret (Negative); Blood, Urine Unable to Interpret (Negative); Clarity Hazy (Clear); Urobilinogen UNABLE TO INTERPRET mg/dL (0.2-1.0)
[2017-12-17 07:54] LABS: Bacteria/HPF Rare-Few HPF (None Seen); RBC/HPF 0-3 HPF (0-3); Squamous Epithelial 0-3 HPF (0-3)
[2017-12-17] MEDS: Phenazopyridine HCl 97.5 MG TABLET PO PRN (08:24)
[2017-12-17] MEDS: Carvedilol 6.25 MG TAB PO SCH ×2 (08:24→17:00)
[2017-12-17] MEDS: Acetaminophen 325 MG TAB PO PRN (08:24)
[2017-12-17] MEDS: Apixaban 5 MG TAB PO SCH ×2 (08:25→20:29)
[2017-12-17] MEDS: Brimonidine Tartrate 0.2% Ophth Soln 5 ml Bottle EA EYE SCH ×2 (08:25→20:27)
[2017-12-17] MEDS: Lisinopril 5 MG TAB PO SCH (08:25)
--- NOTE | 2017-12-17 12:38 | RAD ---
RIGHT FOOT RADIOGRAPH THREE VIEWS: 12/17/2017 PROVIDED CLINICAL HISTORY: Right foot pain, status post injury. FINDINGS: There is a nondisplaced intraarticular fracture involving the medial base of the great toe, proximal phalanx. No additional fracture is evident. Degenerative changes are seen at the first MTP joint. Alignment appears anatomic. Joint spaces appear otherwise preserved. IMPRESSION: Nondisplaced intraarticular fracture involving the medial aspects of the great toe proximal phalanx. POS: [facility]
--- NOTE | 2017-12-17 14:32 | PRG ---
DATE OF SERVICE: 12/17/2017 SUBJECTIVE: The patient said she is doing good, but is just weak. She is glad to have all this help and is not in any hurry to go home. She said she is having some burning with urination. Also, she has noticed to have some bruising on her right foot that she had not noticed before. This had been c overed with a sock. The area is mildly sore. OBJECTIVE: The patient is lying in bed, alert, talkative, appears in no distress. Temp 98.7, pulse 70, respirations 18, O2 sat 93% on room air, blood pressure 144/70. Her lungs are clear. Heart, reg ular rate. Right shoulder, the swelling and edema is diminishing. Her right foot, there is some bru ising over the first 3 toes and some over the first MP joint. The area is mildly tender. I could no t feel any bony crepitation, and there is no obvious deformity. Her lab shows a urine with wbc's too numerous to count. Culture is pending on this. ASSESSMENT: 1. Generalized weakness. A. Ordinarily independent of her ADLs and ambulates with a walker. B. Since her fall and fracture of the right proximal humerus. She has been weak and had difficulty managing ADLs and ambulating. C. PT and OT initiating care today as of 12/12/2017. D. Improved, tolerating sitting up in a chair and walking short distances as of 12/17/2017. 2. Closed mildly comminuted impacted with mild displacement of the proximal right humerus secondary to the fall on 12/05/2017. They managed nonoperatively with the sling and range of motion exercises within her tolerance that will be progressed within, as healing occurs. A. Stable and comfortable as of 12/17/2017. 3. Fall/possible syncopal episode. A. Etiology not known, possible episode of orthostatic hypotension versus fall from tripping. B. No recurrence as of 12/17/2017. 4. Chronic atrial fibrillation. A. Rate control. B. On chronic anticoagulation originally, Coumadin switched to Eliquis on the evening of 12/10. 5. Status post pacemaker insertion for bradycardia. 6. Hypertension. A. Blood pressure not adequately controlled. 7. Cancer of the breast. A. Status post right mastectomy approximately 2009. B. No history of any recurrence. 8. Recent urinary tract infection with Escherichia coli with colony count greater than 100,000 and o rganisms sensitive to nitrofurantoin, they completed 5-day course of nitrofurantoin. 9. Glaucoma. 10. Code status: DNR. 11. Contusion to the right foot, suspect from the recent fall. 12. Recurrent urinary tract infection as of 12/17/2017. PLAN: Continue PT and OT. We will x-ray the right foot. We will start patient on Cipro 500 mg b.i. d. for [address] her on Pyridium 200 mg t.i.d. for 2 days.
[2017-12-17] MEDS: Latanoprost 0.005% Ophth Soln 2.5 ml Bottle EA EYE SCH (20:28)
[2017-12-17] MEDS: Mirtazapine 15 MG TAB PO SCH (20:28)
[2017-12-17] MEDS: Cipro 250 MG TAB PO SCH (20:28)
[2017-12-17] MEDS: Atorvastatin Calcium 10 MG TAB PO SCH (20:28)
[2017-12-18] MEDS: traMADol HCl 50 MG TAB PO PRN ×3 (03:55→22:25)
[2017-12-18 05:15] LABS: Hemoglobin 10.1 g/dL (12.0-16.0); Platelet Count 250 thou/uL (130-400)
[2017-12-18] MEDS: Cipro 250 MG TAB PO SCH ×2 (09:36→20:46)
[2017-12-18] MEDS: Lisinopril 5 MG TAB PO SCH (09:36)
[2017-12-18] MEDS: Carvedilol 6.25 MG TAB PO SCH ×2 (09:36→16:39)
[2017-12-18] MEDS: Acetaminophen 325 MG TAB PO PRN ×3 (09:36→21:36)
[2017-12-18] MEDS: Brimonidine Tartrate 0.2% Ophth Soln 5 ml Bottle EA EYE SCH ×2 (09:37→20:46)
[2017-12-18] MEDS: Apixaban 5 MG TAB PO SCH ×2 (09:37→20:46)
--- NOTE | 2017-12-18 12:36 | PRG ---
DATE OF SERVICE: 12/18/2017 SUBJECTIVE: The patient said, she is feeling better. Her burning with urination is also much improv ed. She has continued to work with Physical Therapy. OBJECTIVE: General: The patient is sitting up in a geriatric chair. She is alert, talkative, appears very comf ortable. Vital Signs: Show a temperature of 99, pulse 68, respirations 16, O2 sat 94% on room air, blood pres sure 152/74. Lungs: Clear. Heart: Regular rate. EXTREMITIES: Right arm is in a sling. The bruising and swelling of the right shoulder is diminishin g. LABORATORY DATA: Her H&H are 10.1 and 29.7, platelet count 250,000. Creatinine 0.8, estimated GFR 6 .7. Urine culture is still incubating, report will be coming later. X-ray of the right foot shows a nondisplaced fracture involving the medial aspect of the proximal phalanx of the great toe. There w as no displacement. ASSESSMENT: 1. Generalized weakness. A. Ordinarily independent of her ADLs and ambulates with a walker. B. Since her fall and fracture of the right proximal humerus. She has been weak and had difficulty managing ADLs and ambulating. C. PT and OT initiating care today as of 12/12/2017. D. Improved, tolerating sitting up in a chair and walking short distances as of 12/18/2017. 2. Closed mildly comminuted impacted with mild displacement of the proximal right humerus secondary to the fall on 12/05/2017. They managed nonoperatively with the sling and range of motion exercises within her tolerance that will be progressed within, as healing occurs. A. Stable and comfortable as of 12/17/2017. 3. Fall/possible syncopal episode. A. Etiology not known, possible episode of orthostatic hypotension versus fall from tripping. B. No recurrence as of 12/17/2017. C. Resulting in fracture of the right proximal humerus. D. Resulted in a fracture of the base of th e proximal phalanx of the right great toe. Improving as of 12/18/2017. 4. Chronic atrial fibrillation. A. Rate control. B. On chronic anticoagulation originally, Coumadin switched to Eliquis on the evening of 12/10. 5. Status post pacemaker insertion for bradycardia. 6. Hypertension. A. Blood pressure not adequately controlled. 7. Cancer of the breast. A. Status post right mastectomy approximately 2009. B. No history of any recurrence. 8. Recent urinary tract infection with Escherichia coli with colony count greater than 100,000 and o rganisms sensitive to nitrofurantoin, they completed 5-day course of nitrofurantoin. 9. Glaucoma. 10. Code status: DNR. 11. Contusion to the right foot, suspect from the recent fall. 12. Recurrent urinary tract infection as of 12/17/2017. A. Symptomatically improving as of 12/18/2017. PLAN: The patient is almost 2 weeks out from her fall. Her right shoulder is symptomatically improv ing. We just have identified that she also had a fracture of the base of the proximal phalanx of the right great toe that is bruised and a little swelled, but symptomatically improving. Will not need any type of splinting since she is improving with minimal pain. We will continue the PT and OT.
[2017-12-18] MEDS: Latanoprost 0.005% Ophth Soln 2.5 ml Bottle EA EYE SCH (20:45)
[2017-12-18] MEDS: Atorvastatin Calcium 10 MG TAB PO SCH (20:46)
[2017-12-18] MEDS: Mirtazapine 15 MG TAB PO SCH (20:47)
[2017-12-19] MEDS: Cipro 250 MG TAB PO SCH ×2 (08:55→20:45)
[2017-12-19] MEDS: Acetaminophen 325 MG TAB PO PRN (08:55)
[2017-12-19] MEDS: Carvedilol 6.25 MG TAB PO SCH ×2 (08:56→16:19)
[2017-12-19] MEDS: Apixaban 5 MG TAB PO SCH ×2 (08:56→20:45)
[2017-12-19] MEDS: Brimonidine Tartrate 0.2% Ophth Soln 5 ml Bottle EA EYE SCH ×2 (08:56→20:44)
[2017-12-19] MEDS: Lisinopril 5 MG TAB PO SCH (08:56)
[2017-12-19] MEDS: traMADol HCl 50 MG TAB PO PRN ×2 (09:02→20:43)
--- NOTE | 2017-12-19 09:20 | PRG ---
DATE OF SERVICE: 12/19/2017 SUBJECTIVE: The patient said she is doing alright, did not sleep real well, but this is common for h er. She has just a little mild pain in her right foot with walking yesterday. OBJECTIVE: The patient is alert and appears very comfortable and in no distress. Her vital signs sh ow temperature 97.9, pulse 63, respirations 16, O2 sats 93, blood pressure 153/66. Lungs are clear. Heart, regular rate. Right arm in a sling. Swelling and edema in the right shoulder is decreasing. Lower extremities, no edema. ASSESSMENT: 1. Generalized weakness. A. Ordinarily independent of her ADLs and ambulates with a walker. B. Since her fall and fracture of the right proximal humerus. She has been weak and had difficulty managing ADLs and ambulating. C. PT and OT initiating care today as of 12/12/2017. D. Improved. Walking further and transferring easier as of 12/19/2017. 2. Closed mildly comminuted impacted with mild displacement of the proximal right humerus secondary to the fall on 12/05/2017. They managed nonoperatively with the sling and range of motion exercises within her tolerance that will be progressed within, as healing occurs. A. Stable and comfortable as of 12/19/2017. 3. Fall/possible syncopal episode. A. Etiology not known, possible episode of orthostatic hypotension versus fall from tripping. B. No recurrence as of 12/19/2017. C. Resulting in fracture of the right proximal humerus. D. Resulted in a fracture of the base of th e proximal phalanx of the right great toe. Improving as of 12/19/2017. 4. Chronic atrial fibrillation. A. Rate control. B. On chronic anticoagulation originally, Coumadin switched to Eliquis on the evening of 12/10. 5. Status post pacemaker insertion for bradycardia. 6. Hypertension. A. Blood pressure not adequately controlled. 7. Cancer of the breast. A. Status post right mastectomy approximately 2009. B. No history of any recurrence. 8. Recent urinary tract infection with Escherichia coli with colony count greater than 100,000 and o rganisms sensitive to nitrofurantoin, they completed 5-day course of nitrofurantoin. 9. Glaucoma. 10. Code status: DNR. 11. Contusion to the right foot, suspect from the recent fall. 12. Recurrent urinary tract infection as of 12/17/2017. A. Symptomatically improving as of 12/19/2017. PLAN: Continue PT and OT. Final culture on the urine is still pending.
[2017-12-19] MEDS: Mirtazapine 15 MG TAB PO SCH (20:44)
[2017-12-19] MEDS: Atorvastatin Calcium 10 MG TAB PO SCH (20:44)
[2017-12-19] MEDS: Latanoprost 0.005% Ophth Soln 2.5 ml Bottle EA EYE SCH (20:44)
[2017-12-20] MEDS: traMADol HCl 50 MG TAB PO PRN (04:16)
[2017-12-20 05:24] LABS: Hemoglobin 10.4 g/dL (12.0-16.0); Platelet Count 249 thou/uL (130-400)
[2017-12-20] MEDS: Apixaban 5 MG TAB PO SCH ×2 (08:49→20:30)
[2017-12-20] MEDS: Carvedilol 6.25 MG TAB PO SCH ×2 (08:49→17:08)
[2017-12-20] MEDS: Brimonidine Tartrate 0.2% Ophth Soln 5 ml Bottle EA EYE SCH ×2 (08:49→20:36)
[2017-12-20] MEDS: Cipro 250 MG TAB PO SCH ×2 (08:50→20:31)
[2017-12-20] MEDS: Lisinopril 5 MG TAB PO SCH (08:50)
--- NOTE | 2017-12-20 11:39 | PRG ---
DATE OF SERVICE: 12/20/2017 SUBJECTIVE: The patient thinks she is doing better, but she is a little dizzy this morning. She thi nks it may be from the tramadol. This will be stopped since heretofore she has been managing pretty well pain yang with just acetaminophen alone. OBJECTIVE: GENERAL: The patient is sitting up on the side of her bed eating breakfast. She is alert, appears c omfortable in no distress. VITAL SIGNS: Shows a temperature of 97.6, pulse 86, blood pressure 173/82, earlier 144/69, yet had e jamie morning medicines, respirations 16, O2 sat 92% on room air. LUNGS: Clear. HEART: Regular rate. EXTREMITIES: The right shoulder and upper arm, the swelling in the shoulders were slowly resolving a nd the bruising is fading. There is no edema in the lower leg. LABORATORY DATA: H&H is 10.4 and 30.4, platelet count 249,000. Creatinine 0.81. The patient's urin e cultures growing Enterococcus faecalis with colony count of only 10-25,000. The organism is sensit moses to the Cipro that she is on. ASSESSMENT: 1. Generalized weakness. A. Ordinarily independent of her ADLs and ambulates with a walker. B. Since her fall and fracture of the right proximal humerus. She has been weak and had difficulty managing ADLs and ambulating. C. PT and OT initiating care today as of 12/12/2017. D. Improved. Walking further and transferring easier as of 12/20/2017. 2. Closed mildly comminuted impacted with mild displacement of the proximal right humerus secondary to the fall on 12/05/2017. They managed nonoperatively with the sling and range of motion exercises within her tolerance that will be progressed within, as healing occurs. A. Stable and comfortable as of 12/20/2017. 3. Fall/possible syncopal episode. A. Etiology not known, possible episode of orthostatic hypotension versus fall from tripping. B. No recurrence as of 12/19/2017. C. Resulting in fracture of the right proximal humerus. D. Resulted in a fracture of the base of th e proximal phalanx of the right great toe. Improving as of 12/19/2017. D. No subsequent fall or passing out spell as of 12/20/2017. 4. Chronic atrial fibrillation. A. Rate control. B. On chronic anticoagulation originally, Coumadin switched to Eliquis on the evening of 12/10. 5. Status post pacemaker insertion for bradycardia. 6. Hypertension. A. Blood pressure not adequately controlled. 7. Cancer of the breast. A. Status post right mastectomy approximately 2009. B. No history of any recurrence. 8. Recent urinary tract infection with Escherichia coli with colony count greater than 100,000 and o rganisms sensitive to nitrofurantoin, they completed 5-day course of nitrofurantoin. 9. Glaucoma. 10. Code status: DNR. 11. Contusion to the right foot, suspect from the recent fall. 12. Recurrent urinary tract infection as of 12/17/2017. A. Symptomatically improving as of 12/19/2017. B. Urine culture from 12/17/2017 grew Enterococcus faecalis, colony count 10-25,000. Organism sensi tive to the Cipro. PLAN: We will stop the tramadol since this may be contributing to her dizziness. The Tylenol will b e adequate to control her symptoms or any of her pain. Continue the PT and OT.
[2017-12-20] MEDS: Acetaminophen 325 MG TAB PO PRN (12:33)
[2017-12-20] MEDS ORDERED: Clotrimazole 1% Cream 15 GM TUBE TOP PRN (16:11)
[2017-12-20] MEDS: Mirtazapine 15 MG TAB PO SCH (20:32)
[2017-12-20] MEDS: Atorvastatin Calcium 10 MG TAB PO SCH (20:33)
[2017-12-20] MEDS: Latanoprost 0.005% Ophth Soln 2.5 ml Bottle EA EYE SCH (20:36)
[2017-12-21] MEDS: Acetaminophen 325 MG TAB PO PRN ×3 (01:39→15:38)
[2017-12-21] MEDS: Apixaban 5 MG TAB PO SCH ×2 (09:14→19:44)
[2017-12-21] MEDS: Carvedilol 6.25 MG TAB PO SCH ×2 (09:14→15:38)
[2017-12-21] MEDS: Brimonidine Tartrate 0.2% Ophth Soln 5 ml Bottle EA EYE SCH ×2 (09:14→19:46)
[2017-12-21] MEDS: Clotrimazole 1% Cream 15 GM TUBE TOP SCH ×2 (09:15→19:39)
[2017-12-21] MEDS: Cipro 250 MG TAB PO SCH ×2 (09:15→19:44)
[2017-12-21] MEDS: Lisinopril 5 MG TAB PO SCH (09:15)
[2017-12-21] MEDS: Acetaminophen/Codeine 30-300mg Tablet PO PRN (19:33)
[2017-12-21] MEDS: Atorvastatin Calcium 10 MG TAB PO SCH (19:43)
[2017-12-21] MEDS: Mirtazapine 15 MG TAB PO SCH (19:43)
[2017-12-21] MEDS: Latanoprost 0.005% Ophth Soln 2.5 ml Bottle EA EYE SCH (19:46)
[2017-12-22] MEDS: Acetaminophen/Codeine 30-300mg Tablet PO PRN ×3 (01:33→19:32)
[2017-12-22] MEDS: Clotrimazole 1% Cream 15 GM TUBE TOP SCH ×2 (08:52→20:07)
[2017-12-22] MEDS: Apixaban 5 MG TAB PO SCH ×2 (08:53→20:06)
[2017-12-22] MEDS: Cipro 250 MG TAB PO SCH ×2 (08:53→20:05)
[2017-12-22] MEDS: Lisinopril 5 MG TAB PO SCH (08:54)
[2017-12-22] MEDS: Carvedilol 6.25 MG TAB PO SCH ×2 (08:54→17:10)
[2017-12-22] MEDS: Brimonidine Tartrate 0.2% Ophth Soln 5 ml Bottle EA EYE SCH ×2 (08:55→20:05)
[2017-12-22] MEDS: Latanoprost 0.005% Ophth Soln 2.5 ml Bottle EA EYE SCH (20:05)
[2017-12-22 20:06] VITALS: BMI 20.6
[2017-12-22] MEDS: Mirtazapine 15 MG TAB PO SCH (20:06)
[2017-12-22] MEDS: Atorvastatin Calcium 10 MG TAB PO SCH (20:06)
[2017-12-23] MEDS: Apixaban 5 MG TAB PO SCH ×2 (08:46→20:21)
[2017-12-23] MEDS: Carvedilol 6.25 MG TAB PO SCH ×2 (08:46→16:12)
[2017-12-23] MEDS: Lisinopril 5 MG TAB PO SCH (08:46)
[2017-12-23] MEDS: Cipro 250 MG TAB PO SCH ×2 (08:46→20:21)
[2017-12-23] MEDS: Brimonidine Tartrate 0.2% Ophth Soln 5 ml Bottle EA EYE SCH ×2 (08:47→20:20)
[2017-12-23] MEDS: Clotrimazole 1% Cream 15 GM TUBE TOP SCH ×2 (08:47→20:19)
[2017-12-23] MEDS: Acetaminophen/Codeine 30-300mg Tablet PO PRN ×2 (10:18→16:12)
--- NOTE | 2017-12-23 11:19 | PRG ---
DATE OF SERVICE: 12/21/2017 SUBJECTIVE: The patient said that she is doing okay this morning, but she did not rest well last nig ht. Nurses said she slept all night and her caregiver that stays with her also said she slept all ni ght. She said she is a little sore in her foot and her shoulder, but otherwise doing okay. OBJECTIVE: The patient is alert, sitting up in a bedside chair, appears comfortable and in no distre ss. Her temperature is 98.6, pulse 84, blood pressure 173/82, respirations 16, O2 sat 95% on room ai r, blood pressure earlier was 138/67, had not yet had her blood pressure medicines when higher readin g was recorded. Her lungs were clear. Heart, regular rate. Extremities, no edema. ASSESSMENT: 1. Generalized weakness. A. Ordinarily independent of her ADLs and ambulates with a walker. B. Since her fall and fracture of the right proximal humerus. She has been weak and had difficulty managing ADLs and ambulating. C. PT and OT initiating care today as of 12/12/2017. D. Improved. Walking further and transferring easier as of 12/21/2017. 2. Closed mildly comminuted impacted with mild displacement of the proximal right humerus secondary to the fall on 12/05/2017. They managed nonoperatively with the sling and range of motion exercises within her tolerance that will be progressed within, as healing occurs. A. Stable and comfortable as of 12/21/2017. 3. Fall/possible syncopal episode. A. Etiology not known, possible episode of orthostatic hypotension versus fall from tripping. B. No recurrence as of 12/21/2017. C. Resulting in fracture of the right proximal humerus. D. Resulted in a fracture of the base of th e proximal phalanx of the right great toe. Improving as of 12/19/2017. D. No subsequent fall or passing out spell as of 12/20/2017. 4. Chronic atrial fibrillation. A. Rate control. B. On chronic anticoagulation originally, Coumadin switched to Eliquis on the evening of 12/10. 5. Status post pacemaker insertion for bradycardia. 6. Hypertension. A. Blood pressure not adequately controlled. 7. Cancer of the breast. A. Status post right mastectomy approximately 2009. B. No history of any recurrence. 8. Recent urinary tract infection with Escherichia coli with colony count greater than 100,000 and o rganisms sensitive to nitrofurantoin, they completed 5-day course of nitrofurantoin. 9. Glaucoma. 10. Code status: DNR. 11. Closed and displaced fracture of the proximal phalanx of the right great toe that occurred from her fall/syncopal spell on 12/05/2017. 12. Recurrent urinary tract infection as of 12/17/2017. A. Symptomatically improving as of 12/19/2017. B. Urine culture from 12/17/2017 grew Enterococcus faecalis, colony count 10-25,000. Organism sensi tive to the Cipro. PLAN: Continue present care. Continue PT and OT.
--- NOTE | 2017-12-23 11:20 | PRG ---
DATE OF SERVICE: 12/23/2017 SUBJECTIVE: The patient said she slept a little better last night, but at times was a little restles s. She still had some pain not relieved by the plain Tylenol. She was given Tylenol #3 one tablet w hen needed and this has worked very well for her. She said her shoulder is feeling better. Her foot is feeling better. OBJECTIVE: The patient is sitting up in a bedside chair. She looks very comfortable. She has her s ling in place. Her vital signs show a temperature of 98.6, pulse 86, respirations 18, O2 sat 96% on room air, blood pressure 176/81, last evening 133/63. She has not yet had animal researcher meds. Lungs are clear. Heart, regular rate. Extremities, no edema. Right shoulder, the swelling is less. The right shoulder is still a little larger than the left. The bruising is markedly decreased. There i s still some yellow greenish drainage on the distal upper arm, but overall much less. The patient's right arm is in a sling. She has good range of motion of the elbow and the wrist. ASSESSMENT: 1. Generalized weakness. A. Ordinarily independent of her ADLs and ambulates with a walker. B. Since her fall and fracture of the right proximal humerus. She has been weak and had difficulty managing ADLs and ambulating. C. PT and OT initiating care today as of 12/12/2017. D. Improved. Walking further and transferring easier as of 12/23/2017. 2. Closed mildly comminuted impacted with mild displacement of the proximal right humerus secondary to the fall on 12/05/2017. They managed nonoperatively with the sling and range of motion exercises within her tolerance that will be progressed within, as healing occurs. A. Stable and comfortable as of 12/23/2017. 3. Fall/possible syncopal episode. A. Etiology not known, possible episode of orthostatic hypotension versus fall from tripping. B. No recurrence as of 12/19/2017. C. Resulting in fracture of the right proximal humerus. D. Resulted in a fracture of the base of th e proximal phalanx of the right great toe. Improving as of 12/19/2017. D. No subsequent fall or passing out spell as of 12/23/2017. 4. Chronic atrial fibrillation. A. Rate control. B. On chronic anticoagulation originally, Coumadin switched to Eliquis on the evening of 12/10. 5. Status post pacemaker insertion for bradycardia. 6. Hypertension. A. Blood pressure not adequately controlled. 7. Cancer of the breast. A. Status post right mastectomy approximately 2009. B. No history of any recurrence. 8. Recent urinary tract infection with Escherichia coli with colony count greater than 100,000 and o rganisms sensitive to nitrofurantoin, they completed 5-day course of nitrofurantoin. 9. Glaucoma. 10. Code status: DNR. 12. Recurrent urinary tract infection as of 12/17/2017. A. Asymptomatic as of 12/23/2017. B. Urine culture from 12/17/2017 grew Enterococcus faecalis, colony count 10-25,000. Organism sensi tive to the Cipro. PLAN: Continue present care. Continue PT and OT.
[2017-12-23] MEDS: Atorvastatin Calcium 10 MG TAB PO SCH (20:20)
[2017-12-23] MEDS: Latanoprost 0.005% Ophth Soln 2.5 ml Bottle EA EYE SCH (20:20)
[2017-12-23] MEDS: Mirtazapine 15 MG TAB PO SCH (20:21)
[2017-12-23] MEDS: Acetaminophen 325 MG TAB PO PRN (20:22)
[2017-12-24] MEDS: Acetaminophen/Codeine 30-300mg Tablet PO PRN ×3 (03:05→17:08)
[2017-12-24] MEDS: Lisinopril 5 MG TAB PO SCH (09:04)
[2017-12-24] MEDS: Clotrimazole 1% Cream 15 GM TUBE TOP SCH ×2 (09:04→20:56)
[2017-12-24] MEDS: Cipro 250 MG TAB PO SCH ×2 (09:04→20:48)
[2017-12-24] MEDS: Apixaban 5 MG TAB PO SCH ×2 (09:05→20:47)
[2017-12-24] MEDS: Carvedilol 6.25 MG TAB PO SCH ×2 (09:05→17:08)
[2017-12-24] MEDS: Brimonidine Tartrate 0.2% Ophth Soln 5 ml Bottle EA EYE SCH ×2 (09:06→20:54)
--- NOTE | 2017-12-24 09:17 | PRG ---
DATE OF SERVICE: 12/24/2017 SUBJECTIVE: The patient said she is better. She had a good night. She is walking further with phys ical therapy. Her right arm is feeling better and her right foot also is feeling better. OBJECTIVE: The patient is alert, talkative, looks very comfortable and in no distress. Her vital si gns show a temperature of 98.1, pulse 95, respirations 16, O2 sat 97% on room air, blood pressure 142 /66. Lungs are clear. Heart, regular rate. Right arm, she is moving the elbow and the wrist very w ell. She seems comfortable up in the upper arm. The bruising continues to diminish, bruising is not totally resolved, but better. The right foot, the bruising over the first three toes in the first M P joint is diminishing and the swelling is almost resolved. The big toe is well aligned. ASSESSMENT: 1. Generalized weakness. A. Ordinarily independent of her ADLs and ambulates with a walker. B. Since her fall and fracture of the right proximal humerus. She has been weak and had difficulty managing ADLs and ambulating. C. PT and OT initiating care today as of 12/12/2017. D. Improved. Walking further and transferring easier as of 12/24/2017. 2. Closed mildly comminuted impacted with mild displacement of the proximal right humerus secondary to the fall on 12/05/2017. They managed nonoperatively with the sling and range of motion exercises within her tolerance that will be progressed within, as healing occurs. A. Stable and comfortable. Good range of motion of the elbow and the wrist as of 12/24/2017. 3. Fall/possible syncopal episode. A. Etiology not known, possible episode of orthostatic hypotension versus fall from tripping. B. No recurrence as of 12/19/2017. C. Resulting in fracture of the right proximal humerus. D. Resulted in a fracture of the base of th e proximal phalanx of the right great toe. Improving as of 12/19/2017. D. No subsequent fall or passing out spell as of 12/24/2017. 4. Chronic atrial fibrillation. A. Rate control. B. On chronic anticoagulation originally, Coumadin switched to Eliquis on the evening of 12/10. 5. Status post pacemaker insertion for bradycardia. 6. Hypertension. A. Blood pressure not adequately controlled. 7. Cancer of the breast. A. Status post right mastectomy approximately 2009. B. No history of any recurrence. 8. Recent urinary tract infection with Escherichia coli with colony count greater than 100,000 and o rganisms sensitive to nitrofurantoin, they completed 5-day course of nitrofurantoin. 9. Glaucoma. 10. Code status: DNR. 12. Recurrent urinary tract infection as of 12/17/2017. A. Asymptomatic as of 12/24/2017. B. Urine culture from 12/17/2017 grew Enterococcus faecalis, colony count 10-25,000. Organism sensi tive to the Cipro. PLAN: Continue present care. Continue PT and OT.
[2017-12-24] MEDS: Atorvastatin Calcium 10 MG TAB PO SCH (20:48)
[2017-12-24] MEDS: Mirtazapine 15 MG TAB PO SCH (20:48)
[2017-12-24] MEDS: Latanoprost 0.005% Ophth Soln 2.5 ml Bottle EA EYE SCH (20:54)
[2017-12-25] MEDS: Carvedilol 6.25 MG TAB PO SCH ×2 (09:05→16:56)
[2017-12-25] MEDS: Brimonidine Tartrate 0.2% Ophth Soln 5 ml Bottle EA EYE SCH ×2 (09:05→21:15)
[2017-12-25] MEDS: Apixaban 5 MG TAB PO SCH ×2 (09:05→21:13)
[2017-12-25] MEDS: Lisinopril 5 MG TAB PO SCH (09:05)
[2017-12-25] MEDS: Cipro 250 MG TAB PO SCH ×2 (09:06→21:13)
[2017-12-25] MEDS: Acetaminophen/Codeine 30-300mg Tablet PO PRN ×2 (09:06→21:23)
[2017-12-25] MEDS: Clotrimazole 1% Cream 15 GM TUBE TOP SCH ×2 (09:06→21:15)
--- NOTE | 2017-12-25 11:07 | PRG ---
DATE OF SERVICE: 12/25/2017 SUBJECTIVE: The patient said she is doing all right. There were little soreness in the shoulder, di d not think she slept quite as well last night. OBJECTIVE: GENERAL: The patient is sitting up on the edge of bed. She is alert, talkative, appears comfortable and in no distress. VITAL SIGNS: Shows a temperature of 99, pulse 62, respirations 16, O2 sat 95% on room air, blood pre ssure 163/71, last evening 134/64. LUNGS: Clear. HEART: Regular rate. EXTREMITIES: No edema. ASSESSMENT: 1. Generalized weakness. A. Ordinarily independent of her ADLs and ambulates with a walker. B. Since her fall and fracture of the right proximal humerus. She has been weak and had difficulty managing ADLs and ambulating. C. PT and OT initiating care today as of 12/12/2017. D. Improved. Walking further and transferring easier as of 12/25/2017. 2. Closed mildly comminuted impacted with mild displacement of the proximal right humerus secondary to the fall on 12/05/2017. They managed nonoperatively with the sling and range of motion exercises within her tolerance that will be progressed within, as healing occurs. A. Stable and comfortable. Good range of motion of the elbow and the wrist as of 12/25/2017. 3. Fall/possible syncopal episode. A. Etiology not known, possible episode of orthostatic hypotension versus fall from tripping. B. No recurrence as of 12/25/2017. C. Resulting in fracture of the right proximal humerus. 4. Chronic atrial fibrillation. A. Rate control. B. On chronic anticoagulation originally, Coumadin switched to Eliquis on the evening of 12/10. 5. Status post pacemaker insertion for bradycardia. 6. Hypertension. A. Blood pressure not adequately controlled. 7. Cancer of the breast. A. Status post right mastectomy approximately 2009. B. No history of any recurrence. 8. Recent urinary tract infection with Escherichia coli with colony count greater than 100,000 and o rganisms sensitive to nitrofurantoin, they completed 5-day course of nitrofurantoin. 9. Glaucoma. 10. Code status: DNR. 12. Recurrent urinary tract infection as of 12/17/2017. A. Asymptomatic as of 12/24/2017. B. Urine culture from 12/17/2017 grew Enterococcus faecalis, colony count 10-25,000. Organism sensi tive to the Cipro. PLAN: Continue present care. Continue PT, OT.
[2017-12-25] MEDS: Atorvastatin Calcium 10 MG TAB PO SCH (21:13)
[2017-12-25] MEDS: Mirtazapine 15 MG TAB PO SCH (21:14)
[2017-12-25] MEDS: Latanoprost 0.005% Ophth Soln 2.5 ml Bottle EA EYE SCH (21:14)
[2017-12-26] MEDS: Carvedilol 6.25 MG TAB PO SCH ×2 (08:46→17:13)
[2017-12-26] MEDS: Apixaban 5 MG TAB PO SCH ×2 (08:46→20:43)
[2017-12-26] MEDS: Lisinopril 5 MG TAB PO SCH (08:47)
[2017-12-26] MEDS: Clotrimazole 1% Cream 15 GM TUBE TOP SCH ×2 (08:47→20:44)
[2017-12-26] MEDS: Brimonidine Tartrate 0.2% Ophth Soln 5 ml Bottle EA EYE SCH ×2 (08:48→20:42)
--- NOTE | 2017-12-26 10:02 | PRG ---
DATE OF SERVICE: 12/26/2017 SUBJECTIVE: The patient said she is doing well. She has no complaints. Slept a little better last night, but often has some difficulty resting at night. She is doing better with therapy. OBJECTIVE: The patient is sitting up eating her breakfast. She is alert, is in no distress. She white s a sling on her right arm. Her vital signs show a temperature of 98.4, pulse 64, respirations 18, O 2 sat 94% on room air, blood pressure 150/68. Her lungs are clear. Heart, regular rate. Right arm, the bruising is gradually diminishing in the right shoulder and upper arm. Extremities no edema. ASSESSMENT: 1. Generalized weakness. A. Ordinarily independent of her ADLs and ambulates with a walker. B. Since her fall and fracture of the right proximal humerus. She has been weak and had difficulty managing ADLs and ambulating. C. PT and OT initiating care today as of 12/12/2017. D. Improved. Walking further and transferring easier as of 12/26/2017. 2. Closed mildly comminuted impacted with mild displacement of the proximal right humerus secondary to the fall on 12/05/2017. They managed nonoperatively with the sling and range of motion exercises within her tolerance that will be progressed within, as healing occurs. A. Stable and comfortable. Good range of motion of the elbow and the wrist as of 12/26/2017. 3. Fall/possible syncopal episode. A. Etiology not known, possible episode of orthostatic hypotension versus fall from tripping. B. No recurrence as of 12/26/2017. C. Resulting in fracture of the right proximal humerus. 4. Chronic atrial fibrillation. A. Rate control. B. On chronic anticoagulation originally, Coumadin switched to Eliquis on the evening of 12/10. 5. Status post pacemaker insertion for bradycardia. 6. Hypertension. A. Controlled as of 12/26/2017. 7. Cancer of the breast. A. Status post right mastectomy approximately 2009. B. No history of any recurrence. 8. Recent urinary tract infection with Escherichia coli with colony count greater than 100,000 and o rganisms sensitive to nitrofurantoin, they completed 5-day course of nitrofurantoin. 9. Glaucoma. 10. Code status: DNR. 12. Recurrent urinary tract infection as of 12/17/2017. A. Asymptomatic as of 12/24/2017. B. Completed 10-day course of Cipro on 12/26/2017. PLAN: Continue PT and OT. I have visited with patient and the patient is doing better. Will mignon trejo plan on her discharge in a week. This will give her this additional time for further advanceme nt in her strengthening and functional capabilities.
[2017-12-26] MEDS: Acetaminophen/Codeine 30-300mg Tablet PO PRN (17:33)
[2017-12-26] MEDS: Latanoprost 0.005% Ophth Soln 2.5 ml Bottle EA EYE SCH (20:43)
[2017-12-26] MEDS: Atorvastatin Calcium 10 MG TAB PO SCH (20:44)
[2017-12-26] MEDS: Mirtazapine 15 MG TAB PO SCH (20:44)
[2017-12-27] MEDS: Acetaminophen/Codeine 30-300mg Tablet PO PRN (01:48)
[2017-12-27] MEDS: Carvedilol 6.25 MG TAB PO SCH ×2 (08:56→17:15)
[2017-12-27] MEDS: Clotrimazole 1% Cream 15 GM TUBE TOP SCH ×2 (08:57→20:18)
[2017-12-27] MEDS: Apixaban 5 MG TAB PO SCH ×2 (08:57→20:17)
[2017-12-27] MEDS: Lisinopril 5 MG TAB PO SCH (08:57)
[2017-12-27] MEDS: Brimonidine Tartrate 0.2% Ophth Soln 5 ml Bottle EA EYE SCH ×2 (08:58→20:16)
[2017-12-27] MEDS: Acetaminophen 325 MG TAB PO PRN (08:58)
--- NOTE | 2017-12-27 10:33 | PRG ---
DATE OF SERVICE: 12/27/2017 SUBJECTIVE: The patient is doing better. She rested better. Her pain seemed to be well controlled. The patient does occasionally use 1 Tylenol #3 for the pain and also periodically the Tylenol. Ove rall, she thinks she is feeling better. OBJECTIVE: The patient is sitting up in a bedside chair eating her breakfast. She looks very comfor table. Her caregiver is there in the room with her. Her vital signs show a temperature 98.5, pulse 86, blood pressure 150/68, respirations 18, O2 sat 96% on room air. Her lungs were clear. Heart, re gular rate. Right arm is in a sling, but she uses the forearm and hand very comfortably. Her lungs were clear. Heart, regular rate. Lower extremities, no edema. ASSESSMENT: 1. Generalized weakness. A. Ordinarily independent of her ADLs and ambulates with a walker. B. Since her fall and fracture of the right proximal humerus. She has been weak and had difficulty managing ADLs and ambulating. C. PT and OT initiating care today as of 12/12/2017. D. Improved. Walking further and transferring easier as of 12/27/2017. 2. Closed mildly comminuted impacted with mild displacement of the proximal right humerus secondary to the fall on 12/05/2017. They managed nonoperatively with the sling and range of motion exercises within her tolerance that will be progressed within, as healing occurs. A. Stable and comfortable. Using the hand and has improved movement in the wrist and the elbow as o f 12/27/2017. 3. Fall/possible syncopal episode. A. Etiology not known, possible episode of orthostatic hypotension versus fall from tripping. B. No recurrence as of 12/27/2017. C. Resulting in fracture of the right proximal humerus. 4. Chronic atrial fibrillation. A. Rate control. B. On chronic anticoagulation originally, Coumadin switched to Eliquis on the evening of 12/10. 5. Status post pacemaker insertion for bradycardia. 6. Hypertension. A. Controlled as of 12/26/2017. 7. Cancer of the breast. A. Status post right mastectomy approximately 2009. B. No history of any recurrence. 8. Recent urinary tract infection with Escherichia coli with colony count greater than 100,000 and o rganisms sensitive to nitrofurantoin, they completed 5-day course of nitrofurantoin. 9. Glaucoma. 10. Code status: DNR. 12. Recurrent urinary tract infection as of 12/17/2017. A. Asymptomatic as of 12/24/2017. B. Completed 10-day course of Cipro on 12/26/2017. PLAN: Continue present care. We will have physical therapy begin working with patient with gentle r palmer of motion at the shoulder. The patient will benefit by further physical therapy. The patient i s very happy to stay here for 1 more week to help with this physical therapy. This will greatly assi st her with her functional capabilities at home. She does have caregivers with her all the time at [facility] which will facilitate her needs at home and we will arrange home health to see her once she does go home.
[2017-12-27] MEDS: Latanoprost 0.005% Ophth Soln 2.5 ml Bottle EA EYE SCH (20:16)
[2017-12-27] MEDS: Mirtazapine 15 MG TAB PO SCH (20:17)
[2017-12-27] MEDS: Atorvastatin Calcium 10 MG TAB PO SCH (20:17)
[2017-12-28] MEDS: Brimonidine Tartrate 0.2% Ophth Soln 5 ml Bottle EA EYE SCH ×2 (09:05→20:32)
[2017-12-28] MEDS: Lisinopril 5 MG TAB PO SCH (09:05)
[2017-12-28] MEDS: Acetaminophen/Codeine 30-300mg Tablet PO PRN (09:05)
[2017-12-28] MEDS: Apixaban 5 MG TAB PO SCH ×2 (09:05→20:32)
[2017-12-28] MEDS: Carvedilol 6.25 MG TAB PO SCH ×2 (09:05→17:06)
[2017-12-28] MEDS: Clotrimazole 1% Cream 15 GM TUBE TOP SCH ×2 (09:05→20:34)
[2017-12-28] MEDS: Latanoprost 0.005% Ophth Soln 2.5 ml Bottle EA EYE SCH (20:31)
[2017-12-28] MEDS: Atorvastatin Calcium 10 MG TAB PO SCH (20:33)
[2017-12-28] MEDS: Mirtazapine 15 MG TAB PO SCH (20:33)
[2017-12-29] MEDS: Carvedilol 6.25 MG TAB PO SCH ×2 (08:28→16:53)
[2017-12-29] MEDS: Clotrimazole 1% Cream 15 GM TUBE TOP SCH ×2 (08:28→20:30)
[2017-12-29] MEDS: Apixaban 5 MG TAB PO SCH ×2 (08:28→20:29)
[2017-12-29] MEDS: Brimonidine Tartrate 0.2% Ophth Soln 5 ml Bottle EA EYE SCH ×2 (08:28→20:27)
[2017-12-29] MEDS: Lisinopril 5 MG TAB PO SCH (08:28)
[2017-12-29] MEDS: Acetaminophen/Codeine 30-300mg Tablet PO PRN (08:29)
[2017-12-29] MEDS: Latanoprost 0.005% Ophth Soln 2.5 ml Bottle EA EYE SCH (20:28)
[2017-12-29] MEDS: Atorvastatin Calcium 10 MG TAB PO SCH (20:29)
[2017-12-29] MEDS: Mirtazapine 15 MG TAB PO SCH (20:30)
[2017-12-30] MEDS: Apixaban 5 MG TAB PO SCH ×2 (08:39→20:34)
[2017-12-30] MEDS: Carvedilol 6.25 MG TAB PO SCH ×2 (08:39→17:31)
[2017-12-30] MEDS: Lisinopril 5 MG TAB PO SCH (08:40)
[2017-12-30] MEDS: Clotrimazole 1% Cream 15 GM TUBE TOP SCH ×2 (08:40→20:38)
[2017-12-30] MEDS: Brimonidine Tartrate 0.2% Ophth Soln 5 ml Bottle EA EYE SCH ×2 (08:40→20:33)
--- NOTE | 2017-12-30 09:06 | PRG ---
DATE OF SERVICE: 12/30/2017 SUBJECTIVE: The patient said she is doing alright this morning. She has walked to the bathroom with just her caregiver with no problems. Her shoulder is not hurting her. She said she has sometimes s ome restless nights that leaves her a little tired in the morning. OBJECTIVE: The patient is alert, appears very comfortable. Her vital signs show a temperature of 97 .3, pulse 63, respirations 18, O2 sat 95% on room air, blood pressure 167/77. Lungs are clear. Hear t, regular rate. Extremities; right shoulder, there is mild swelling around the shoulder. The bruis ing is resolving. She has good motion in the elbow and wrist and the wrist. Extremities have no soniya ma. ASSESSMENT: 1. Generalized weakness. A. Ordinarily independent of her ADLs and ambulates with a walker. B. Since her fall and fracture of the right proximal humerus. She has been weak and had difficulty managing ADLs and ambulating. C. PT and OT initiating care today as of 12/12/2017. D. Improved. Walking further and transferring easier as of 12/30/2017. 2. Closed mildly comminuted impacted with mild displacement of the proximal right humerus secondary to the fall on 12/05/2017. They managed nonoperatively with the sling and range of motion exercises within her tolerance that will be progressed within, as healing occurs. A. Stable and comfortable. Using the hand and has improved movement in the wrist and the elbow as o f 12/30/2017. 3. Fall/possible syncopal episode. A. Etiology not known, possible episode of orthostatic hypotension versus fall from tripping. B. No recurrence as of 12/30/2017. C. Resulting in fracture of the right proximal humerus. 4. Chronic atrial fibrillation. A. Rate control. B. On chronic anticoagulation originally, Coumadin switched to Eliquis on the evening of 12/10. 5. Status post pacemaker insertion for bradycardia. 6. Hypertension. A. Controlled as of 12/30/2017. 7. Cancer of the breast. A. Status post right mastectomy approximately 2009. B. No history of any recurrence. 8. Recent urinary tract infection with Escherichia coli with colony count greater than 100,000 and o rganisms sensitive to nitrofurantoin, they completed 5-day course of nitrofurantoin. 9. Glaucoma. 10. Code status: DNR. 12. Recurrent urinary tract infection as of 12/17/2017. A. Asymptomatic as of 12/24/2017. B. Completed 10-day course of Cipro on 12/26/2017. PLAN: Continue present care. May use a sling as needed. Physical therapy will work with her now wi th some gentle range of motion at the shoulder.
[2017-12-30] MEDS: Acetaminophen/Codeine 30-300mg Tablet PO PRN (17:34)
[2017-12-30] MEDS: Latanoprost 0.005% Ophth Soln 2.5 ml Bottle EA EYE SCH (20:32)
[2017-12-30] MEDS: Atorvastatin Calcium 10 MG TAB PO SCH (20:33)
[2017-12-30] MEDS: Mirtazapine 15 MG TAB PO SCH (20:33)
[2017-12-31] MEDS: Carvedilol 6.25 MG TAB PO SCH ×2 (08:28→16:39)
[2017-12-31] MEDS: Brimonidine Tartrate 0.2% Ophth Soln 5 ml Bottle EA EYE SCH ×2 (08:28→20:48)
[2017-12-31] MEDS: Apixaban 5 MG TAB PO SCH ×2 (08:29→20:50)
[2017-12-31] MEDS: Clotrimazole 1% Cream 15 GM TUBE TOP SCH ×2 (08:29→20:49)
[2017-12-31] MEDS: Lisinopril 5 MG TAB PO SCH (08:29)
--- NOTE | 2017-12-31 10:43 | PRG ---
DATE OF SERVICE: 12/31/2017 SUBJECTIVE: The patient said she is doing good. She is leaving her sling off and doing good with he r arms. She is doing better with her walking. She still has nights that she has trouble sleeping an d asks for something to help. I suggested a trial of melatonin, which she is willing to try. Prepar ations are being made for her discharge on 01/03/2018. OBJECTIVE: The patient is sitting up in a chair. She is alert, looks very comfortable in no distres s. Her temperature is 98.4, pulse 70, respirations 18, O2 sat 96% on room air, blood pressure 151/75 . Lungs are clear. Heart, regular rate. The right arm out of the sling. Extremities, no edema. ASSESSMENT: 1. Generalized weakness. A. Ordinarily independent of her ADLs and ambulates with a walker. B. Since her fall and fracture of the right proximal humerus. She has been weak and had difficulty managing ADLs and ambulating. C. PT and OT initiating care today as of 12/12/2017. D. Improved. Walking further and transferring easier as of 12/31/2017. 2. Closed mildly comminuted impacted with mild displacement of the proximal right humerus secondary to the fall on 12/05/2017. They managed nonoperatively with the sling and range of motion exercises within her tolerance that will be progressed within, as healing occurs. A. Stable and comfortable. Using the hand and has improved movement in the wrist and the elbow as o f 12/30/2017. 3. Fall/possible syncopal episode. A. Etiology not known, possible episode of orthostatic hypotension versus fall from tripping. B. No recurrence as of 12/31/2017. C. Resulting in fracture of the right proximal humerus. 4. Chronic atrial fibrillation. A. Rate control. B. On chronic anticoagulation originally, Coumadin switched to Eliquis on the evening of 12/10. 5. Status post pacemaker insertion for bradycardia. 6. Hypertension. A. Controlled as of 12/30/2017. 7. Cancer of the breast. A. Status post right mastectomy approximately 2009. B. No history of any recurrence. 8. Recent urinary tract infection with Escherichia coli with colony count greater than 100,000 and o rganisms sensitive to nitrofurantoin, they completed 5-day course of nitrofurantoin. 9. Glaucoma. 10. Code status: DNR. 12. Recurrent urinary tract infection as of 12/17/2017. A. Asymptomatic as of 12/24/2017. B. Completed 10-day course of Cipro on 12/26/2017. PLAN: Continue PT. Plans are being made for her discharge on 01/03/2018.
[2017-12-31] MEDS: Latanoprost 0.005% Ophth Soln 2.5 ml Bottle EA EYE SCH (20:48)
[2017-12-31] MEDS: Atorvastatin Calcium 10 MG TAB PO SCH (20:49)
[2017-12-31] MEDS: Melatonin 3 MG TAB PO PRN (20:49)
[2017-12-31] MEDS: Mirtazapine 15 MG TAB PO SCH (20:50)
[2018-01-01] MEDS: Acetaminophen/Codeine 30-300mg Tablet PO PRN ×2 (04:47→21:36)
--- NOTE | 2018-01-01 08:51 | PRG ---
DATE OF SERVICE: 01/01/2018 SUBJECTIVE: The patient said she still has nights where she has a little trouble sleeping. The nurs es said she does seem to sleep as does her caregiver, but she may wake up frequently. The patient's leaving the sling off her right arm and doing well with this. She is getting around better and prepa ring to go home on Saturday01/03/2018. OBJECTIVE: The patient had just walked back from the bathroom and is back in her bed. She is alert, appears very comfortable, appears in no distress. Her vital signs show a temperature of 97.8, pulse 68, respirations 18, O2 sat 94% on room air, blood pressure 159/74, earlier in the morning it was 13 4/62. Lungs were clear. Heart, regular rate. Bruising resolving over the right arm and right shoul dee, the swelling is resolving. She got excellent motion at the right wrist, right elbow. She has g ot about easily 45 degrees of anterior extension passively of the shoulder. ASSESSMENT: 1. Generalized weakness. A. Ordinarily independent of her ADLs and ambulates with a walker. B. Since her fall and fracture of the right proximal humerus. She has been weak and had difficulty managing ADLs and ambulating. C. PT and OT initiating care today as of 12/12/2017. D. Improved. Walking further and transferring easier as of 01/01/2018. 2. Closed mildly comminuted impacted with mild displacement of the proximal right humerus secondary to the fall on 12/05/2017. They managed nonoperatively with the sling and range of motion exercises within her tolerance that will be progressed within, as healing occurs. A. Improved. Excellent range of motion of the wrist, elbow and some passive range of motion up to a bout 45 degrees of the shoulder as of 01/01/2018. 3. Fall/possible syncopal episode. A. Etiology not known, possible episode of orthostatic hypotension versus fall from tripping. B. No recurrence as of 01/01/2018. C. Resulting in fracture of the right proximal humerus and undisplaced fracture of the proximal phal anx of the right great toe. 4. Chronic atrial fibrillation. A. Rate control. B. On chronic anticoagulation originally, Coumadin switched to Eliquis on the evening of 12/10. 5. Status post pacemaker insertion for bradycardia. 6. Hypertension. A. Controlled as of 01/01/2018. 7. Cancer of the breast. A. Status post right mastectomy approximately 2009. B. No history of any recurrence. 8. Recent urinary tract infection with Escherichia coli with colony count greater than 100,000 and o rganisms sensitive to nitrofurantoin, they completed 5-day course of nitrofurantoin. 9. Glaucoma. 10. Code status: DNR. 12. Recurrent urinary tract infection as of 12/17/2017. A. Asymptomatic as of 12/24/2017. B. Completed 10-day course of Cipro on 12/26/2017. PLAN: Continue present care. Continue PT, OT. Anticipate discharge on Saturday01/03/2018.7
[2018-01-01] MEDS: Brimonidine Tartrate 0.2% Ophth Soln 5 ml Bottle EA EYE SCH ×2 (08:52→21:37)
[2018-01-01] MEDS: Carvedilol 6.25 MG TAB PO SCH ×2 (08:53→17:21)
[2018-01-01] MEDS: Apixaban 5 MG TAB PO SCH ×2 (08:53→21:27)
[2018-01-01] MEDS: Lisinopril 5 MG TAB PO SCH (08:53)
[2018-01-01] MEDS: Clotrimazole 1% Cream 15 GM TUBE TOP SCH ×2 (09:03→22:18)
[2018-01-01] MEDS: Mirtazapine 15 MG TAB PO SCH (21:23)
[2018-01-01] MEDS: Atorvastatin Calcium 10 MG TAB PO SCH (21:24)
[2018-01-01] MEDS: Melatonin 3 MG TAB PO PRN (21:24)
[2018-01-01] MEDS: Latanoprost 0.005% Ophth Soln 2.5 ml Bottle EA EYE SCH (21:37)
[2018-01-02] MEDS: Lisinopril 5 MG TAB PO SCH (08:23)
[2018-01-02] MEDS: Clotrimazole 1% Cream 15 GM TUBE TOP SCH ×2 (08:23→20:34)
[2018-01-02] MEDS: Apixaban 5 MG TAB PO SCH ×2 (08:23→20:26)
[2018-01-02] MEDS: Carvedilol 6.25 MG TAB PO SCH ×2 (08:23→16:58)
[2018-01-02] MEDS: Brimonidine Tartrate 0.2% Ophth Soln 5 ml Bottle EA EYE SCH ×2 (08:29→20:33)
--- NOTE | 2018-01-02 09:22 | PRG ---
DATE OF SERVICE: 01/02/2018 SUBJECTIVE: The patient said she is doing good. Slept better last night. She is doing very well wi th her physical therapy, walking with her walker, using both arms now to support herself. Her motion in the right arm is improving. OBJECTIVE: The patient is alert and appears in no distress. Her vital signs show a temperature of 9 8.2, pulse 60, respirations are 16, O2 sat 95% on room air, blood pressure 134/65. Lungs are clear. Heart, regular rate. Bruising over the right upper arm is almost all resolved. Lower extremities, no edema. ASSESSMENT: 1. Generalized weakness. A. Ordinarily independent of her ADLs and ambulates with a walker. B. Since her fall and fracture of the right proximal humerus. She has been weak and had difficulty managing ADLs and ambulating. C. PT and OT initiating care today as of 12/12/2017. D. Improved. Walking further, now using both arms on the walker. Transferring easier as of 018. 2. Closed mildly comminuted impacted with mild displacement of the proximal right humerus secondary to the fall on 12/05/2017. They managed nonoperatively with the sling and range of motion exercises within her tolerance that will be progressed within, as healing occurs. A. Improved. Excellent range of motion in the wrist and the elbow. Increasing motion in the right s houlder as of 01/02/2018. 3. Fall/possible syncopal episode. A. Etiology not known, possible episode of orthostatic hypotension versus fall from tripping. B. No recurrence as of 01/02/2018. C. Resulting in fracture of the right proximal humerus and undisplaced fracture of the proximal phal anx of the right great toe. 4. Chronic atrial fibrillation. A. Rate control. B. On chronic anticoagulation originally, Coumadin switched to Eliquis on the evening of 12/10. 5. Status post pacemaker insertion for bradycardia. 6. Hypertension. A. Controlled as of 01/02/2018. 7. Cancer of the breast. A. Status post right mastectomy approximately 2009. B. No history of any recurrence. 8. Recent urinary tract infection with Escherichia coli with colony count greater than 100,000 and o rganisms sensitive to nitrofurantoin, they completed 5-day course of nitrofurantoin. 9. Glaucoma. 10. Code status: DNR. 12. Recurrent urinary tract infection as of 12/17/2017. A. Asymptomatic as of 12/24/2017. B. Completed 10-day course of Cipro on 12/26/2017. PLAN: Continue present care. Continue PT. Anticipate discharge tomorrow with home health with cont inuation of PT and OT.
[2018-01-02] MEDS: Atorvastatin Calcium 10 MG TAB PO SCH (20:26)
[2018-01-02] MEDS: Mirtazapine 15 MG TAB PO SCH (20:29)
[2018-01-02] MEDS: Latanoprost 0.005% Ophth Soln 2.5 ml Bottle EA EYE SCH (20:31)
[2018-01-03] MEDS: Acetaminophen/Codeine 30-300mg Tablet PO PRN (04:20)
[2018-01-03 07:01] VITALS: BP 165/73; TEMP 98.6
[2018-01-03] MEDS: Brimonidine Tartrate 0.2% Ophth Soln 5 ml Bottle EA EYE SCH (08:31)
[2018-01-03] MEDS: Lisinopril 5 MG TAB PO SCH (08:32)
[2018-01-03] MEDS: Carvedilol 6.25 MG TAB PO SCH (08:33)
[2018-01-03] MEDS: Apixaban 5 MG TAB PO SCH (08:33)
[2018-01-03] MEDS: Clotrimazole 1% Cream 15 GM TUBE TOP SCH (08:33)
--- NOTE | 2018-01-03 14:16 | DIS ---
DATE OF ADMISSION: Admitted to extended care on 12/11/2017 DATE OF DISCHARGE: 01/03/2018 FINAL DIAGNOSES: 1. Generalized weakness. A. Ordinarily independent of her ADLs and ambulates with a walker. B. Since her fall and fracture of the right proximal humerus. She has been weak and had difficulty managing ADLs and ambulating. C. PT and OT initiating care today as of 12/12/2017. D. Improved. Walking further, now using both arms on the walker. Transferring easier as of 01/03/2018. 2. Closed mildly comminuted impacted with mild displacement of the proximal right humerus secondary to the fall on 12/05/2017. They managed nonoperatively with the sling and range of motion exercises within her tolerance that will be progressed within, as healing occurs. A. Improved. Excellent range of motion in the wrist and the elbow. Increasing motion in the right shoulder as of 01/02/2018. 3. Fall/possible syncopal episode. A. Etiology not known, possible episode of orthostatic hypotension versus fall from tripping. B. No recurrence as of 01/03/2018. C. Resulting in fracture of the right proximal humerus and undisplaced fracture of the proximal phalanx of the right great toe. 4. Chronic atrial fibrillation. A. Rate control. B. On chronic anticoagulation originally, Coumadin switched to Eliquis on the evening of 12/10. 5. Status post pacemaker insertion for bradycardia. 6. Hypertension. A. Controlled as of 01/03/2018. 7. Cancer of the breast. A. Status post right mastectomy approximately 2009. B. No history of any recurrence. 8. Recent urinary tract infection with Escherichia coli with colony count greater than 100,000 and organisms sensitive to nitrofurantoin, they completed 5 -day course of nitrofurantoin. 9. Glaucoma. 10. Code status: DNR. 12. Recurrent urinary tract infection as of 12/17/2017. A. Asymptomatic as of 12/24/2017. B. Completed 10-day course of Cipro on 12/26/2017. REASON FOR ADMISSION: The patient is an 87-year-old white female who has a history of atrial fibrillation, pacemaker due to bradycardia and hypertension. She had been originally on Coumadin. She has a distant history of breast cancer. She lives at her home and usually is independent of her ADLs and has caregivers that are in the home to assist her. Usually the caregivers are on the day and sometimes at night. The patient had a fall in her home, does not really remember what had caused the fall, just remembers that she was on the floor and was having pain in her right shoulder. She was taken to the emergency room and found to have a close mildly comminuted impacted fracture of the proximal right humerus with mild displacement that was managed with a sling. The patient was evaluated for her syncope and transferred to [facility]. She had a CT scan of the grindstone of Basurto in the neck that showed no significant stenosis. CT scan of the brain did not show any acute intracranial abnormality. Chest x-ray showed some prominence of the cardiac silhouette in the presence of a pacemaker. She was seen in consult by the planning coordinator. Echocardiogram done showed an EF of 55%-60%, moderate dilation of the left atrium, enlargement of the right atrium, left ventricle was normal and she had mild to moderate tricuspid regurgitation, and mild mitral regurgitation. She was seen in consult by her planning coordinator. She was in a regular rhythm and it was recommended that she be switched to Eliquis instead of the Coumadin. It was unsure whether this episode that had occurred at home was from tripping and a fall from ground level or syncopal episode. Workup for the syncope was unrevealing. She was weak and had the right arm in a sling and it was elected to transfer her to [facility] to extended care for gait training, strengthening and care of the fracture of the right humerus. During her hospital stay, the pain in the right shoulder gradually abated to where it was manageable with Tylenol alone. Initially, while in the sling, PT worked with her for range of motion exercises of the wrist and the elbow and after about 3 weeks, the sling was able to be discontinued and gentle range of motion of the shoulder was started. She underwent gait training and strengthening exercise and made excellent progress. By the time of her discharge, she was walking between 150 and 300 feet with a rolling walker and only standby assistance and was discharge to use her walker with both hands since the fracture of the humerus had improved. She was transferring with minimal assistance. Her strength had improved. At home, she has ladies that stay with her all the time and upon her discharge, these ladies were continue to care for her 24/09 to assist with her ADLs and instrumental ADLs. During her hospitalization, she had a urinary tract infection that was identified while at [facility] and the antibiotics were completed. During her stay at [facility], her blood pressure remained very stable and controlled. Her pulse remained in the 60-80 range. Her last lab on 12/20/2017 showed an H&H of 10.4 and 30.4 with a platelet count of 249, BUN 12, creatinine 0.81, GFR 67. The patient's condition had markedly improved such that it felt that she could be managed at home. The patient was discharged on 01/03/2018. She will have caregivers with her at all times to assist her. Home health will also help with the patient's care and arrange for continuation of in-home PT and OT. The patient will follow up with her primary physician, Dr. Garrett Walters in [place]. DISPOSITION: Diet: Regular diet. No added salt. Activities: Up in a chair as tolerated. Ambulate with the use of a rolling walker. Home Health to see patient and arrange for in-home PT and OT for strengthening exercise, gait training, and range of motion exercises, and strengthening of the right arm and shoulder. MEDICATIONS: Tylenol 325 mg 2 every 4 hours as needed, Eliquis 2.5 mg b.i.d., atorvastatin 40 mg daily, Alphagan ophthalmic solution 0.2% 1 drop in the eyes b.i.d., carvedilol 6.25 mg b.i.d., lisinopril 5 mg daily, Melatonin 3 mg at night time, Mirtazapine 30 mg at bedtime and Omeprazole 20 mg bid. FOLLOW UP: The patient should be seen by her regular physician, Dr. Garrett Walters in [place] in 2 weeks. Prior to that visit, she will need a CBC and basic metabolic panel. CODE STATUS: DNR. MTDD
== END 2018-01-03 12:48 | disposition home health service (06) | DRG 948 ==
LOC: MADMS 13:14
PROVIDERS: ADMIT Family Medicine; ATTEND Family Medicine
DX: R53.1 Weakness (principal); N39.0 Urinary tract infection, site not specified; I10 Essential (primary) hypertension; Z95.0 Presence of cardiac pacemaker; R00.1 Bradycardia, unspecified; Z79.01 Long term (current) use of anticoagulants; Z85.3 Personal history of malignant neoplasm of breast; Z98.84 Bariatric surgery status; S42.201D Unspecified fracture of upper end of right humerus, subsequent encounter for fracture with routine healing; I08.1 Rheumatic disorders of both mitral and tricuspid valves; I48.2 Chronic atrial fibrillation; E78.5 Hyperlipidemia, unspecified; H40.9 Unspecified glaucoma; Z66 Do not resuscitate; I95.1 Orthostatic hypotension; Z90.11 Acquired absence of right breast and nipple; B95.2 Enterococcus as the cause of diseases classified elsewhere; Z16.29 Resistance to other single specified antibiotic; S92.911D Unspecified fracture of right toe(s), subsequent encounter for fracture with routine healing
CPT/HCPCS: 36415; 80053; 81003; 81015; 82565; 85014; 85018; 85025; 85049; 85610; 87077; 87086; 87186; G8978-GP-CL; G8979-GP-CJ; G8987-GO-CL; G8988-GO-CI; G9168-GN-CJ; G9169-GN-CJ

== ENCOUNTER 2018-01-08 09:38 | Outpatient (CLI) | payer MEDICARE ==
[2018-01-08 11:01] LABS: Bilirubin Negative (Negative); Blood, Urine Trace (Negative); Glucose, Urine (Dipstick) Negative (Negative); Leukocyte Moderate (Negative); Nitrite Negative (Negative); Protein, Urine (Dipstick) 100 mg/dL (Neg-Trace); Specific Gravity, Urine 1.025 (1.005-1.030); Urobilinogen 0.2 mg/dL (0.2-1.0); pH, Urine 5.5 (5.0-9.0)
[2018-01-08 11:02] LABS: Bacteria/HPF 4+ HPF (None Seen); Clarity Slightly Cloudy (Clear); RBC/HPF 0-3 HPF (0-3); WBC/HPF 21-50 HPF (0-3)
== END 2018-01-08 09:39 | disposition home or self-care (01) ==
LOC: MADLAB 09:38
PROVIDERS: ATTEND Pediatrics
DX: N39.0 Urinary tract infection, site not specified (principal)
CPT/HCPCS: 81001; 87077; 87086; 87186

== ENCOUNTER 2018-02-14 09:02 | Inpatient (IN) | payer MEDICARE ==
[2018-02-14 09:51] LABS: #Lymphocytes 0.7 thou/uL (1.20-3.40); #Monocytes 1.2 thou/uL (0.11-0.59); #Neutrophils 15.7 thou/uL (1.40-6.50); %Basophils 0.2 % (0.0-1.0); %Lymphocytes 4.2 % (21.0-51.0); %Monocytes 6.9 % (0.0-10.0); %Neutrophils 88.7 % (42.0-75.0); Hemoglobin 13.9 g/dL (12.0-16.0); Mean Corpuscular HGB CONC 34.1 g/dL (32.0-36.0); Mean Corpuscular Hemoglobin 31.5 pg (27.0-31.0); Mean Corpuscular Volume 92.4 fL (78.0-98.0); Mean Platelet Volume 6.7 fL (7.4-10.4); Platelet Count 270 thou/uL (130-400); Red Blood Cell (RBC) Count 4.42 mill/uL (4.20-5.40); White Blood Cell (WBC) Count 17.6 thou/uL (4.8-10.8)
[2018-02-14 10:07] LABS: ALT (SGPT) Less than 7 U/L (8-55); AST (SGOT) 13 U/L (5-34); Alkaline Phosphatase 93 U/L (40-150); Anion Gap 18 mmol/L (10-20); BUN (Urea Nitrogen) 24 mg/dL (9.8-20.1); Calc. Creatinine Clearance 0 mL/min (70-130); Calcium 9.6 mg/dL (7.8-10.44); Carbon Dioxide 24 mmol/L (23-31); Chloride 93 mmol/L (98-107); Estimated GFR-MDRD 65; Globulin 4.4 g/dL (2.4-3.5); Glucose 126 mg/dL (83-110); Potassium 3.5 mmol/L (3.5-5.1); Protein, Total 8.4 g/dL (6.0-8.3); Sodium 131 mmol/L (136-145)
--- NOTE | 2018-02-14 10:26 | RAD ---
PORTABLE CHEST 1 VIEW: Date: `02/14/18 Time: 0949 hours HISTORY: Dyspnea. FINDINGS/IMPRESSION: Comparison made with exam of 12/13/17. There is continued elevation of the right hemidiaphragm. Cardiomegaly is again seen. Left-sided pacem mayank device remains in place with mild prominence of the pulmonary vascularity without lobar consolid ation, pneumothoraces, or large effusions. There is evidence of old granulomatous disease. POS: [facility]
[2018-02-14] MEDS ORDERED: Azithromycin 250 MG TAB ONE (12:17)
[2018-02-14] MEDS ORDERED: predniSONE 20 MG TAB ONE (12:17)
[2018-02-14] MEDS ORDERED: Ondansetron ODT 4 MG TAB PO PRN (13:17)
[2018-02-14] MEDS ORDERED: Acetaminophen 325 MG TAB PO PRN (13:17)
[2018-02-14 13:20] VITALS: BMI 18.0
[2018-02-14] MEDS ORDERED: Sodium Chloride 0.9% 10 ML ONE (17:03)
[2018-02-14] MEDS: Azithromycin 250 MG TAB PO SCH (17:12)
[2018-02-14] MEDS: cefTRIAXone\\ROCEPHIN 1 GM in Sodium Chloride 0.9% 100 ML IVPB SCH (17:13)
[2018-02-14] MEDS: Albuterol Sulfate 2.5 mg/3 ml Neb NEB SCH (18:16)
[2018-02-14] MEDS: Atorvastatin Calcium 10 MG TAB PO SCH (20:45)
[2018-02-14] MEDS: Apixaban 5 MG TAB PO SCH (20:45)
[2018-02-14] MEDS: Brimonidine Tartrate 0.2% Ophth Soln 5 ml Bottle EA EYE SCH (20:45)
[2018-02-14] MEDS: Carvedilol 6.25 MG TAB PO SCH (20:46)
[2018-02-14] MEDS: guaiFENesin ER 600 MG TAB PO SCH (20:46)
[2018-02-14] MEDS: Timolol 0.5% Ophth Soln 5 ml Bottle EA EYE SCH (20:47)
[2018-02-14] MEDS: Mirtazapine 30 MG Soltab PO SCH (20:47)
[2018-02-14] MEDS ORDERED: Latanoprost 0.005% Ophth Soln 2.5 ml Bottle EA EYE SCH (21:00)
[2018-02-14] MEDS: Melatonin 3 MG TAB PO PRN (21:02)
[2018-02-15 06:03] LABS: Anion Gap 16 mmol/L (10-20); BUN (Urea Nitrogen) 31 mg/dL (9.8-20.1); Calc. Creatinine Clearance 35 mL/min (70-130); Calcium 9.2 mg/dL (7.8-10.44); Carbon Dioxide 25 mmol/L (23-31); Chloride 96 mmol/L (98-107); Estimated GFR-MDRD 60; Glucose 127 mg/dL (83-110); Potassium 3.6 mmol/L (3.5-5.1); Sodium 133 mmol/L (136-145)
[2018-02-15 06:06] LABS: #Lymphocytes 0.5 thou/uL (1.20-3.40); #Monocytes 0.4 thou/uL (0.11-0.59); %Basophils 0.2 % (0.0-1.0); %Lymphocytes 6.5 % (21.0-51.0); %Monocytes 5.2 % (0.0-10.0); %Neutrophils 88.1 % (42.0-75.0); Mean Corpuscular HGB CONC 35.8 g/dL (32.0-36.0); Mean Corpuscular Hemoglobin 33.2 pg (27.0-31.0); Mean Corpuscular Volume 92.6 fL (78.0-98.0); Mean Platelet Volume 6.6 fL (7.4-10.4); Platelet Count 238 thou/uL (130-400); RBC Distribution Width 11.2 % (11.5-14.5); Red Blood Cell (RBC) Count 3.91 mill/uL (4.20-5.40); White Blood Cell (WBC) Count 7.9 thou/uL (4.8-10.8)
[2018-02-15] MEDS: Albuterol Sulfate 2.5 mg/3 ml Neb NEB SCH ×4 (07:23→19:43)
[2018-02-15] MEDS: Apixaban 5 MG TAB PO SCH ×2 (09:23→20:18)
[2018-02-15] MEDS: Carvedilol 6.25 MG TAB PO SCH ×2 (09:24→20:19)
[2018-02-15] MEDS: Brimonidine Tartrate 0.2% Ophth Soln 5 ml Bottle EA EYE SCH ×2 (09:24→20:18)
[2018-02-15] MEDS: Timolol 0.5% Ophth Soln 5 ml Bottle EA EYE SCH ×3 (09:25→20:19)
[2018-02-15] MEDS: Lisinopril 5 MG TAB PO SCH (09:25)
[2018-02-15] MEDS: Fluticasone Propionate Nasal Spray 16 gm Bottle NASAL SCH (09:25)
[2018-02-15] MEDS: guaiFENesin ER 600 MG TAB PO SCH ×2 (09:25→20:19)
[2018-02-15] MEDS: Azithromycin 250 MG TAB PO SCH (16:42)
[2018-02-15] MEDS: cefTRIAXone\\ROCEPHIN 1 GM in Sodium Chloride 0.9% 100 ML IVPB SCH (16:43)
[2018-02-15] MEDS: Acetaminophen 325 MG TAB PO PRN (18:10)
[2018-02-15] MEDS: Atorvastatin Calcium 10 MG TAB PO SCH (20:18)
[2018-02-15] MEDS: Mirtazapine 30 MG Soltab PO SCH (20:19)
[2018-02-16] MEDS: Acetaminophen 325 MG TAB PO PRN (02:51)
[2018-02-16] MEDS: Albuterol Sulfate 2.5 mg/3 ml Neb NEB SCH ×4 (08:16→19:34)
[2018-02-16] MEDS: Apixaban 5 MG TAB PO SCH ×2 (08:16→20:16)
[2018-02-16] MEDS: Lisinopril 5 MG TAB PO SCH (08:17)
[2018-02-16] MEDS: guaiFENesin ER 600 MG TAB PO SCH ×2 (08:17→20:20)
[2018-02-16] MEDS: Carvedilol 6.25 MG TAB PO SCH ×2 (08:18→20:18)
[2018-02-16] MEDS: Brimonidine Tartrate 0.2% Ophth Soln 5 ml Bottle EA EYE SCH ×2 (08:18→20:25)
[2018-02-16] MEDS: Timolol 0.5% Ophth Soln 5 ml Bottle EA EYE SCH ×2 (08:19→20:20)
[2018-02-16] MEDS: Fluticasone Propionate Nasal Spray 16 gm Bottle NASAL SCH (08:19)
[2018-02-16] MEDS: Azithromycin 250 MG TAB PO SCH (16:40)
[2018-02-16] MEDS: cefTRIAXone\\ROCEPHIN 1 GM in Sodium Chloride 0.9% 100 ML IVPB SCH (16:44)
[2018-02-16] MEDS: Atorvastatin Calcium 10 MG TAB PO SCH (20:17)
[2018-02-16] MEDS: Mirtazapine 30 MG Soltab PO SCH (20:18)
[2018-02-17] MEDS: Melatonin 3 MG TAB PO PRN (01:25)
--- NOTE | 2018-02-17 06:56 | HP ---
CHIEF COMPLAINT: Cough, chest congestion, and increased weakness. PRESENT ILLNESS: The patient is an 87-year-old white female, who has a history of atrial fibrillation, pacemaker due to bradycardia, hypertension, and cancer of the breast for which she underwent right mastectomy in 2009 with no history of recurrence. She had a fall resulting in closed comminuted impacted fracture of the right proximal humerus on 12/05/2017 and has healed from this. She lives at home and has caregivers who stay with her during the day and the night, and assist her with ADLs. She ordinarily is ambulatory and able to assist with her care. The patient had developed an upper respiratory infection manifest, which is head congestion and cough. She saw her primary care physician, Dr. Garrett Walters in [place] earlier in the week and told she just had a cold. Her caregiver said she had a urinary tract infection and was started on antibiotics for this. The patient's condition has gradually gotten worse. She said she is now having lot of congestion in her chest and can hear the rattling and some wheezing; she is coughing more; at times, she spits up some discolored sputum and she has noticed that she is a little more short of breath with exertion than usual. She is also much weaker. She was brought to the emergency room on the day of admission, 02/14/2018. There, she was evaluated and her O2 saturation on room air was 88%. Her lab showed H and H of 13.9 and 40.8, white blood cell count elevated to 17,600 with 89% segs, 4% lymphocytes, and a platelet count of 270. Her sodium was 131, potassium 3.5, BUN 24, creatinine 0.83, GFR 65, and glucose 123. Her B type natriuretic peptide was 142. Her troponin I was 0.02. The patient's chest x-ray showed chronic elevation of the right hemidiaphragm that is unchanged. There is cardiomegaly, which is stable. She had some mild pulmonary vascular congestion. There was no effusion and there was a left-sided pacemaker present. The patient was admitted to the hospital for acute bronchitis that had not gotten better at home and was complicated by some hypoxemia. The patient was admitted to the hospital for the care of this bronchitis and hypoxemia. She was placed on supplemental O2. The patient was seen soon after her admission and was able to review with me the above complaints along with her caregiver. She said she has been aware of some congested feeling in her chest and the increased weakness and some shortness of breath, particularly with exertion. PAST HISTORY: The patient had a fall on 12/05/2017 that resulted in mildly comminuted impacted fracture of the right humerus. This was managed nonoperatively with a sling and then progressed to range of motion exercise. This has healed and doing well. She also has history of chronic atrial fibrillation with rates controlled. 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 She also has hypertension, cancer of the right breast for which she underwent a right mastectomy approximately in 2009, and has had no history of any recurrence. She has had a gastric bypass many years ago. She has had kyphoplasty of the lower thoracic vertebrae and has glaucoma and hyperlipidemia. Recently treated for urinary tract infection. PRESENT MEDICINES: 1. Fluticasone 2 sprays in each nostril daily. 2. Eliquis 2.5 mg b.i.d. 3. Acetaminophen 325 mg 2 every 4 hours as needed. 4. Combigan 0.2%/0.5% one drop in the eyes twice a day. 5. Lumigan 1 drop in the eyes at bedtime. 6. Atorvastatin 40 mg daily. 7. Lisinopril 5 mg daily. 8. Carvedilol 6.25 mg b.i.d. 9. Omeprazole 20 mg daily. 10. Mirtazapine 30 mg at bedtime. 11. Melatonin 3 mg at bedtime as needed. ALLERGIES: NO KNOWN ALLERGIES. REVIEW OF SYSTEMS: GENERAL: The patient does not think she has had any fever. She does not think her weight has changed any. HEAD AND NECK: The patient initially had some head congestion, but that has gotten better. PULMONARY: See present illness. CARDIOVASCULAR: No chest pain. GI: No nausea, vomiting, or change in bowel habits. NEUROPSYCHIATRIC: No complaint. HABITS: Alcohol, none. Tobacco, none. ADLs. The patient is able to walk with the use of a walker. She transfers with little assistance. She has some assistance to help her with her bathing. She is able to feed herself. She has caregivers who stay with her day and night to assist her with her ADLs and her instrumental ADLs. SOCIAL HISTORY: The patient is a . She lives at her home in [place] , but has caregivers who stay with her around the clock. CODE STATUS: DNR. PHYSICAL EXAMINATION: GENERAL: Shows a very pleasant 87-year-old white female, who was lying in bed and has supplemental O2 by nasal cannula. She appears very comfortable and in no distress. She does have a productive sounding cough. VITAL SIGNS: Shows a temp of 98.8, pulse 88, respirations 16, O2 saturation was 88% on room air and now is at 92% on 2 L. Her blood pressure originally was 192/87 and now with her resting, we had 154/69. Her weight is 108. HEENT: Head; normocephalic and atraumatic. Eyes; pupils are equal, round, and reactive; sclerae are nonicteric. Ears; TMs are clear on the left; the right has some cerumen obscuring the TM. Nose; normal. Mouth; throat normal. NECK: JVP not elevated. Carotids are equal and strong. There are no bruits. Thyroid not enlarged. CHEST: The patient has had a previous right mastectomy. The patient has a pacemaker in the left upper anterior chest. LUNGS: Moderate breath sounds with some expiratory rhonchi and end expiratory wheeze on forced expiration. HEART: Regular rate. No murmurs. ABDOMEN: Soft. No organomegaly. No areas of tenderness. EXTREMITIES: The patient has no swelling around the shoulders or the upper arms. She has just mild reduction in extension and abduction of the right shoulder, the arm that she had previously fractured. Lower extremities, no edema. NEUROLOGIC: The patient is alert, recognizes me, knows she is in the hospital. The patient has no focal weakness. IMPRESSION: 1. Asthmatic bronchitis. Complicated by hypoxemia. 2. Chronic atrial fibrillation. a. Rate controlled. b. On chronic anticoagulation with Eliquis. 3. Hypertension. 4. Status post pacemaker placement for bradycardia. 5. History of cancer of the breast. a. Status post right mastectomy, approximately 2009. b. No evidence of recurrence. 6. History of recurrent urinary tract infection. 7. Glaucoma. 8. Code status, do not resuscitate. PLAN: The patient has been admitted to the hospital, where she will be placed on supplemental O2. She will receive IV ceftriaxone and nebulization treatment with albuterol. She will receive her usual home medicines. Increase activities as she tolerates. Will have Physical Therapy work with her to get her back to her usual functional status. Code status is DNR. See orders. Job ID: [id number] MTDD
[2018-02-17] MEDS: Albuterol Sulfate 2.5 mg/3 ml Neb NEB SCH (07:50)
[2018-02-17 08:12] VITALS: BP 190/77; TEMP 99.2
[2018-02-17] MEDS: Apixaban 5 MG TAB PO SCH (09:10)
[2018-02-17] MEDS: Carvedilol 6.25 MG TAB PO SCH (09:11)
[2018-02-17] MEDS: guaiFENesin ER 600 MG TAB PO SCH (09:11)
[2018-02-17] MEDS: Fluticasone Propionate Nasal Spray 16 gm Bottle NASAL SCH (09:11)
[2018-02-17] MEDS: Lisinopril 5 MG TAB PO SCH (09:11)
[2018-02-17] MEDS: Timolol 0.5% Ophth Soln 5 ml Bottle EA EYE SCH (09:12)
[2018-02-17] MEDS: Brimonidine Tartrate 0.2% Ophth Soln 5 ml Bottle EA EYE SCH (09:12)
[2018-02-17] MEDS: Acetaminophen 325 MG TAB PO PRN (09:17)
--- NOTE | 2018-02-17 10:38 | PRG ---
DATE OF SERVICE: 02/15/2018 SUBJECTIVE: She feels a little better today, but still coughing. She has been up with help to walk to the bathroom, but still much weaker than usual since this illness has been going on for a while. Her caregivers did clarify that she is only on Combigan eye drops. This will be clarified and she can use this from home. OBJECTIVE: GENERAL: The patient is sitting up in bed. She is alert, appears very comfortable, in no distress. She does have a productive sounding cough. VITAL SIGNS: Show a temperature of 97.2, pulse 62, blood pressure 157/76, respirations 18, and O2 saturation 98% on 2 L. Later, she had been able to come off the O2 and it has been above 90. LUNGS: Have expiratory rhonchi and some end expiratory wheeze on forced expiration. There are no rales. HEART: Regular rate. EXTREMITIES: No edema. LABORATORY DATA: Her lab shows an H and H of 13 and 36.1, white blood cell count has dropped to 7900 with 88% segs, 6% lymphocytes and platelets count of 238. Her sodium is 133, potassium 3.6, BUN 31, creatinine 0.89. FBS 127. Her urinalysis done on 02/10 had shown wbc's too numerous to count, and positive nitrites. Her culture from 02/10 grew an Escherichia coli. The organism is sensitive to the ceftriaxone that she is receiving. Her nasopharyngeal swab for influenza A and B were both negative. ASSESSMENT: 1. Asthmatic bronchitis. a. Complicated by hypoxemia. b. Improved as of 02/15. 2. Urinary tract infection. a. Urine culture from 02/10 grew Escherichia coli that is sensitive to the ceftriaxone that she is receiving. b. Asymptomatic as of 02/15. 3. Generalized weakness. a. Loss of functional capability and strength with this acute illness. 4. Chronic atrial fibrillation. a. Rate control. b. On chronic anticoagulation with Eliquis. 5. Hypertension. a. Controlled as of 02/15. 6. Cancer of the breast. a. Status post right mastectomy approximately 2009. b. No history of any recurrence. 7. Glaucoma. PLAN: We will continue IV antibiotics. Continue neb treatments Mucinex. We will have Physical Therapy evaluate her. We will gradually increase activities as tolerated. We will switch her eye drop to just Combigan only. Diet will be modified to a regular diet. No added salt. Job ID: [id number] MTDD
--- NOTE | 2018-02-17 10:57 | PRG ---
DATE OF SERVICE: 02/16/2018 SUBJECTIVE: The patient says she is still coughing some. She did not rest real well last night. OBJECTIVE: GENERAL: The patient has a little bit of a productive sounding cough. She does not appear in any acute distress. VITAL SIGNS: Show a temperature of 98.2, pulse 60, respirations 18, O2 saturation 92% on room air, and blood pressure 161/70. LUNGS: Sound better. The breath sounds were good. I did not hear any wheeze or rhonchi. HEART: Regular rate. ASSESSMENT: 1. Asthmatic bronchitis, improved. 2. Generalized weakness. PLAN: Continue present care. Job ID: [id number]
--- NOTE | 2018-02-17 11:00 | PRG ---
DATE OF SERVICE: 02/17/2018 SUBJECTIVE: The patient said she thinks her cough is a little better. She did not rest very well. She said she was up and down throughout the night having to urinate. She did not have any dysuria. She said she felt just a little dizzy and just felt a little funny, nothing very specific. OBJECTIVE: GENERAL: This morning, patient looks a little tired, but not in any acute distress. VITAL SIGNS: Shows temp 99.6, pulse 60, respirations 17, O2 saturation 97% on 2 L, blood pressure was 186/77. Has not yet had morning medicines. LUNGS: With good breath sounds. Expiratory rhonchi particularly on forced expiration. HEART: Regular rate. ASSESSMENT: 1. Asthmatic bronchitis. Complicated by hypoxemia. 2. Chronic atrial fibrillation. a. Rate controlled. b. On chronic anticoagulation with Eliquis. 3. Hypertension. 4. Status post pacemaker placement for bradycardia. 5. History of cancer of the breast. a. Status post right mastectomy, approximately 2009. b. No evidence of recurrence. 6. History of recurrent urinary tract infection. 7. Glaucoma. 8. Code status, do not resuscitate. 9. Generalized weakness and deconditioning. a. Secondary to the acute illness. b. Persist. PLAN: The patient's IV site has been lost. We will switch patient to oral antibiotics using Omnicef. Continue her neb treatment. We will move patient to extended care due to her generalized weakness for physical therapy and OT. We will continue her neb treatments. We will continue to monitor BP. Job ID: [id number]
== END 2018-02-17 10:47 | disposition swing bed (61) | DRG 203 ==
LOC: MADERS 09:02 → MADMS 11:55
PROVIDERS: ADMIT Family Medicine; ATTEND Family Medicine
DX: J45.909 Unspecified asthma, uncomplicated (principal); I25.10 Atherosclerotic heart disease of native coronary artery without angina pectoris; I10 Essential (primary) hypertension; Z66 Do not resuscitate; R09.02 Hypoxemia; E78.5 Hyperlipidemia, unspecified; H40.9 Unspecified glaucoma; I48.2 Chronic atrial fibrillation; J98.6 Disorders of diaphragm; R53.1 Weakness; Z87.440 Personal history of urinary (tract) infections; Z79.899 Other long term (current) drug therapy; Z95.0 Presence of cardiac pacemaker; Z85.3 Personal history of malignant neoplasm of breast; Z98.84 Bariatric surgery status; Z98.890 Other specified postprocedural states; Z88.0 Allergy status to penicillin; Z88.1 Allergy status to other antibiotic agents; Z88.2 Allergy status to sulfonamides; Z90.11 Acquired absence of right breast and nipple; Z79.01 Long term (current) use of anticoagulants
CPT/HCPCS: 36415; 71045; 80048; 80053; 83880; 84484; 85025; 87804; 93005; 94640; G8978-GP-CK; G8979-GP-CI; J0696; J7050; J7506; J7611; J7620

== ENCOUNTER 2018-02-17 01:24 | Inpatient (IN) | payer MEDICARE ==
[2018-02-17] MEDS ORDERED: Lisinopril 5 MG TAB PO SCH (09:00)
[2018-02-17] MEDS: Apixaban 5 MG TAB PO SCH ×2 (12:44→20:08)
[2018-02-17] MEDS: Carvedilol 6.25 MG TAB PO SCH ×2 (12:44→20:09)
[2018-02-17] MEDS: Cefdinir 300 MG CAP PO SCH ×2 (12:45→20:09)
[2018-02-17] MEDS: Fluticasone Propionate Nasal Spray 16 gm Bottle NASAL SCH (12:45)
[2018-02-17] MEDS: guaiFENesin ER 600 MG TAB PO SCH ×2 (12:45→20:09)
[2018-02-17] MEDS: Albuterol Sulfate 2.5 mg/3 ml Neb NEB SCH ×3 (12:46→20:08)
[2018-02-17] MEDS: Brimonidine Tartrate 0.2% Ophth Soln 5 ml Bottle EA EYE SCH (20:09)
[2018-02-17] MEDS: Atorvastatin Calcium 10 MG TAB PO SCH (20:09)
[2018-02-17] MEDS: Timolol 0.5% Ophth Soln 5 ml Bottle EA EYE SCH (20:10)
[2018-02-17] MEDS: Acetaminophen 325 MG TAB PO PRN (20:10)
[2018-02-17] MEDS: Mirtazapine 15 MG TAB PO SCH (20:10)
[2018-02-17] MEDS: Melatonin 3 MG TAB PO PRN (20:10)
[2018-02-18 05:54] LABS: #Basophils 0.1 thou/uL (0.0-0.2); #Monocytes 0.8 thou/uL (0.11-0.59); #Neutrophils 8.2 thou/uL (1.40-6.50); %Basophils 0.8 % (0.0-1.0); %Eosinophils 0.3 % (0.0-10.0); %Lymphocytes 9.6 % (21.0-51.0); %Monocytes 7.6 % (0.0-10.0); %Neutrophils 81.8 % (42.0-75.0); Anion Gap 14 mmol/L (10-20); BUN (Urea Nitrogen) 18 mg/dL (9.8-20.1); Calc. Creatinine Clearance 46 mL/min (70-130); Calcium 9.2 mg/dL (7.8-10.44); Carbon Dioxide 28 mmol/L (23-31); Chloride 98 mmol/L (98-107); Estimated GFR-MDRD 73; Glucose 99 mg/dL (83-110); Mean Corpuscular HGB CONC 34.6 g/dL (32.0-36.0); Mean Corpuscular Volume 92.4 fL (78.0-98.0); Platelet Count 290 thou/uL (130-400); Potassium 3.4 mmol/L (3.5-5.1); RBC Distribution Width 11.5 % (11.5-14.5); Red Blood Cell (RBC) Count 4.07 mill/uL (4.20-5.40); Sodium 137 mmol/L (136-145); White Blood Cell (WBC) Count 10.1 thou/uL (4.8-10.8)
[2018-02-18] MEDS: Albuterol Sulfate 2.5 mg/3 ml Neb NEB SCH ×4 (07:39→19:48)
[2018-02-18] MEDS ORDERED: Lisinopril 5 MG TAB PO SCH (08:07)
[2018-02-18] MEDS: Cefdinir 300 MG CAP PO SCH ×2 (08:31→20:55)
[2018-02-18] MEDS: Lisinopril 10 MG TAB PO SCH (08:31)
[2018-02-18] MEDS: guaiFENesin ER 600 MG TAB PO SCH ×2 (08:31→20:55)
[2018-02-18] MEDS: Carvedilol 6.25 MG TAB PO SCH ×2 (08:31→20:55)
[2018-02-18] MEDS: Timolol 0.5% Ophth Soln 5 ml Bottle EA EYE SCH ×2 (08:31→20:55)
[2018-02-18] MEDS: Fluticasone Propionate Nasal Spray 16 gm Bottle NASAL SCH (08:32)
[2018-02-18] MEDS: Brimonidine Tartrate 0.2% Ophth Soln 5 ml Bottle EA EYE SCH ×2 (08:32→20:55)
[2018-02-18] MEDS: Apixaban 5 MG TAB PO SCH ×2 (08:32→20:54)
--- NOTE | 2018-02-18 13:59 | PRG ---
DATE OF SERVICE: 02/18/2018 SUBJECTIVE: The patient says she rested better last night. This morning, she thinks she feels better. She is up in a chair and is taking the neb treatment. She says her breathing is a little better and cough is better. OBJECTIVE: GENERAL: The patient is sitting up in a chair. She looks very comfortable, in no distress. VITAL SIGNS: Her temperature is 98, pulse 64, respirations 16, O2 saturation 95 % on room air, and blood pressure was elevated to 187/89 this morning. LUNGS: Have some expiratory rhonchi present, but breath sounds were improving. HEART: Regular rate. EXTREMITIES: No edema. LABORATORY DATA: Her H and H are 13 and 37.6, white cell count 10,100 with 82% segs, 10% lymphocytes, a platelet count of 290. Sodium 137, potassium 3.4, BUN 18, creatinine 0.75, GFR 73, and glucose 93. ASSESSMENT: 1. Asthmatic bronchitis. a. Complicated by hypoxemia, resolving. b. Overall improved, but still has some coarse expiratory rhonchi as of . 2. Chronic atrial fibrillation. a. Rate controlled. b. On chronic anticoagulation with Eliquis. 3. Hypertension. a. Not adequately controlled. 4. Status post pacemaker placement for bradycardia. 5. History of cancer of the breast. a. Status post right mastectomy in approximately 2009. b. No evidence of recurrence. 6. History of recurrent urinary tract infection. 7. Glaucoma. 8. Generalized weakness and deconditioning. a. Secondary to acute illness. b. Improved as of 02/18/2018. 9. Code status, DNR. PLAN: Overall, the patient is a little better. We will continue neb treatments. Her blood pressure is still little elevated. We will increase her lisinopril to 10 mg a day. Continue PT and OT. Job ID: [id number] MTDD
[2018-02-18] MEDS: Atorvastatin Calcium 10 MG TAB PO SCH (20:54)
[2018-02-18] MEDS: Mirtazapine 15 MG TAB PO SCH (20:55)
[2018-02-18] MEDS: Melatonin 3 MG TAB PO PRN (20:56)
[2018-02-18] MEDS: Acetaminophen 325 MG TAB PO PRN (20:56)
[2018-02-19] MEDS: Albuterol Sulfate 2.5 mg/3 ml Neb NEB SCH ×4 (07:28→20:03)
[2018-02-19] MEDS: Fluticasone Propionate Nasal Spray 16 gm Bottle NASAL SCH (08:56)
[2018-02-19] MEDS: Brimonidine Tartrate 0.2% Ophth Soln 5 ml Bottle EA EYE SCH ×2 (08:56→20:05)
[2018-02-19] MEDS: Timolol 0.5% Ophth Soln 5 ml Bottle EA EYE SCH ×2 (08:56→20:05)
[2018-02-19] MEDS: Apixaban 5 MG TAB PO SCH ×2 (08:57→20:04)
[2018-02-19] MEDS: Carvedilol 6.25 MG TAB PO SCH ×2 (08:57→20:04)
[2018-02-19] MEDS: guaiFENesin ER 600 MG TAB PO SCH ×2 (08:57→20:04)
[2018-02-19] MEDS: Lisinopril 10 MG TAB PO SCH (08:57)
[2018-02-19] MEDS: Cefdinir 300 MG CAP PO SCH ×2 (08:57→20:04)
--- NOTE | 2018-02-19 14:31 | PRG ---
DATE OF SERVICE: 02/19/2018 SUBJECTIVE: The patient says she feels better today. She rested better. She thinks her therapy went well yesterday. Her cough is much improved. She has not had to use the oxygen over the last day. OBJECTIVE: GENERAL: The patient is sitting up in a bedside chair. She is talkative. She looks excellent and in no distress. VITAL SIGNS: Her vital signs show a temp 98.3, pulse 65, respirations are 20, and her O2 saturation 93% on room air, her blood pressure was elevated this morning at 191/88, but she has not had her medicine. LUNGS: Clear. HEART: Regular rate. EXTREMITIES: No edema. ASSESSMENT: 1. Asthmatic bronchitis. a. Complicated by hypoxemia, that has resolved as of 02/19/2018. b. Continued improvement with clear lungs as of 02/19/2018. 2. Chronic atrial fibrillation. a. Rate control. b. On chronic anticoagulation with Eliquis. 3. Hypertension. a. Pressure is still elevated today, but just increased lisinopril yesterday , 02/18/2018. 4. Status post pacemaker placement for bradycardia. 5. History of cancer of the breast. a. Status post right mastectomy in approximately 2009. b. No evidence of recurrence. 6. History of recurrent urinary tract infections. 7. Glaucoma. 8. Generalized weakness and deconditioning. a. Secondary to acute illness. b. Improving as of 02/19/2018. 9. Code status, DNR. PLAN: The patient looks much better today. We will continue present care, continue monitoring her BP. Her lisinopril was just increased yesterday. Continue PT, OT. Job ID: [id number] [facility]
[2018-02-19] MEDS: Mirtazapine 15 MG TAB PO SCH (20:04)
[2018-02-19] MEDS: Melatonin 3 MG TAB PO PRN (20:05)
[2018-02-19] MEDS: Atorvastatin Calcium 10 MG TAB PO SCH (20:05)
[2018-02-19] MEDS: Acetaminophen 325 MG TAB PO PRN (20:05)
[2018-02-20] MEDS: Acetaminophen 325 MG TAB PO PRN ×2 (04:01→20:36)
[2018-02-20] MEDS: Albuterol Sulfate 2.5 mg/3 ml Neb NEB SCH ×4 (07:33→19:34)
[2018-02-20] MEDS: Timolol 0.5% Ophth Soln 5 ml Bottle EA EYE SCH ×2 (08:38→20:38)
[2018-02-20] MEDS: Fluticasone Propionate Nasal Spray 16 gm Bottle NASAL SCH (08:39)
[2018-02-20] MEDS: Cefdinir 300 MG CAP PO SCH ×2 (08:39→20:37)
[2018-02-20] MEDS: Lisinopril 10 MG TAB PO SCH (08:39)
[2018-02-20] MEDS: Carvedilol 6.25 MG TAB PO SCH ×2 (08:40→20:37)
[2018-02-20] MEDS: Apixaban 5 MG TAB PO SCH ×2 (08:40→20:38)
[2018-02-20] MEDS: guaiFENesin ER 600 MG TAB PO SCH ×2 (08:41→20:37)
[2018-02-20] MEDS: Brimonidine Tartrate 0.2% Ophth Soln 5 ml Bottle EA EYE SCH ×2 (08:41→20:39)
--- NOTE | 2018-02-20 09:57 | PRG ---
DATE OF SERVICE: 02/20/2018 SUBJECTIVE: The patient says she is feeling better, just did not sleep very well last night. She still coughing some. She did walk a little in the hallways with physical therapy yesterday. OBJECTIVE: GENERAL: The patient is lying in bed, head elevated. She is alert, appears comfortable, in no distress. She does have a little productive cough. VITAL SIGNS: Show a temperature of 98.8, pulse 65, respirations 18, O2 saturation 94% on room air, and blood pressure 160/72. LUNGS: The patient has good breath sounds. There are some expiratory rhonchi present. HEART: Regular rate. EXTREMITIES: No edema. ASSESSMENT: 1. Asthmatic bronchitis. a. Complicated by hypoxemia, that has resolved as of 02/19/2018. b. Improved, but still has some expiratory rhonchi as of 02/20/2018. 2. Chronic atrial fibrillation. a. Rate control. b. On chronic anticoagulation with Eliquis. 3. Hypertension. a. Pressure is still elevated today, but just increased lisinopril yesterday , 02/18/2018. 4. Status post pacemaker placement for bradycardia. 5. History of cancer of the breast. a. Status post right mastectomy in approximately 2009. b. No evidence of recurrence. 6. History of recurrent urinary tract infections. 7. Glaucoma. 8. Generalized weakness and deconditioning. a. Secondary to acute illness. b. Improving as of 02/20/2018. 6. Code status, DNR. PLAN: Continue present care. We will start the patient on Dulera one puff twice a day. Continue PT and OT. Job ID: [id number] [facility]
[2018-02-20] MEDS: Mometasone/Formoterol 60 PUFF AER INH SCH (19:33)
[2018-02-20] MEDS: Atorvastatin Calcium 10 MG TAB PO SCH (20:37)
[2018-02-20] MEDS: Mirtazapine 15 MG TAB PO SCH (20:37)
[2018-02-21] MEDS: Mometasone/Formoterol 60 PUFF AER INH SCH ×2 (06:01→18:17)
[2018-02-21] MEDS: Albuterol Sulfate 2.5 mg/3 ml Neb NEB SCH ×4 (06:01→18:17)
[2018-02-21] MEDS: Acetaminophen 325 MG TAB PO PRN ×2 (06:06→09:36)
[2018-02-21] MEDS: Carvedilol 6.25 MG TAB PO SCH ×2 (08:45→20:28)
[2018-02-21] MEDS: guaiFENesin ER 600 MG TAB PO SCH ×2 (08:45→20:28)
[2018-02-21] MEDS: Cefdinir 300 MG CAP PO SCH ×2 (08:45→20:27)
[2018-02-21] MEDS: Lisinopril 10 MG TAB PO SCH ×2 (08:46→20:28)
[2018-02-21] MEDS: Fluticasone Propionate Nasal Spray 16 gm Bottle NASAL SCH (08:47)
[2018-02-21] MEDS: Apixaban 5 MG TAB PO SCH ×2 (08:48→20:29)
[2018-02-21] MEDS: Brimonidine Tartrate 0.2% Ophth Soln 5 ml Bottle EA EYE SCH ×2 (08:48→20:29)
[2018-02-21] MEDS: Timolol 0.5% Ophth Soln 5 ml Bottle EA EYE SCH ×2 (08:54→20:26)
--- NOTE | 2018-02-21 12:32 | PRG ---
DATE OF SERVICE: 02/21/2018 SUBJECTIVE: The patient said she did not sleep very well. Her caregiver that stays with her at night said she woke up about 3 and could not go back to sleep. This happened some time at home. The patient is doing good with her the therapy. Her cough is much better. OBJECTIVE: GENERAL: The patient is sitting on the side of the bed, drinking coffee. She looks better and in no acute distress. VITAL SIGNS: Her temperature is 97.7, her pulse is 65, respirations 16, O2 saturation 94% on room air, her blood pressure is 196/87. Previous readings have also been elevated. LUNGS: Clear this morning. HEART: Regular rate. EXTREMITIES: No edema. ASSESSMENT: 1. Asthmatic bronchitis. a. Complicated by hypoxemia that has resolved as of 02/19. b. Improved. Lungs are clear as of 02/21/2018. 2. Chronic atrial fibrillation. a. Rate control. b. On chronic anticoagulation with Eliquis. 3. Hypertension. a. Not adequately controlled as of 02/21. 4. Status post pacemaker placement for bradycardia. 5. History of cancer of the breast. a. Status post right mastectomy approximately in 2009. b. No evidence of recurrence. 6. History of recurrent urinary tract infection. 7. Glaucoma. 8. Generalized weakness and deconditioning. a. Secondary to the acute illness. b. Improving as of 02/21. 9. Code status, DNR. PLAN: Continue present care. Continue PT/OT. We will increase lisinopril to 10 mg b.i.d. Job ID: [id number]
[2018-02-21] MEDS: traZODone HCl 50 MG TAB PO PRN (20:25)
[2018-02-21] MEDS: Mirtazapine 15 MG TAB PO SCH (20:28)
[2018-02-21] MEDS: Atorvastatin Calcium 10 MG TAB PO SCH (20:28)
[2018-02-21] MEDS ORDERED: Guaifenesin DM 100-10/5 ML UDCUP PO PRN (22:42)
[2018-02-22] MEDS: Acetaminophen 325 MG TAB PO PRN ×3 (04:14→20:27)
[2018-02-22] MEDS: Albuterol Sulfate 2.5 mg/3 ml Neb NEB SCH ×4 (06:01→18:11)
[2018-02-22] MEDS: Mometasone/Formoterol 60 PUFF AER INH SCH ×2 (06:04→18:11)
[2018-02-22] MEDS: Lisinopril 10 MG TAB PO SCH ×2 (08:32→20:28)
[2018-02-22] MEDS: Cefdinir 300 MG CAP PO SCH ×2 (08:32→20:27)
[2018-02-22] MEDS: Apixaban 5 MG TAB PO SCH ×2 (08:32→20:44)
[2018-02-22] MEDS: guaiFENesin ER 600 MG TAB PO SCH ×2 (08:32→20:28)
[2018-02-22] MEDS: Fluticasone Propionate Nasal Spray 16 gm Bottle NASAL SCH (08:32)
[2018-02-22] MEDS: Carvedilol 6.25 MG TAB PO SCH ×2 (08:32→20:27)
[2018-02-22] MEDS: Timolol 0.5% Ophth Soln 5 ml Bottle EA EYE SCH ×2 (08:33→20:28)
[2018-02-22] MEDS: Brimonidine Tartrate 0.2% Ophth Soln 5 ml Bottle EA EYE SCH ×2 (08:33→20:30)
[2018-02-22] MEDS: traZODone HCl 50 MG TAB PO PRN (20:27)
[2018-02-22] MEDS: Melatonin 3 MG TAB PO PRN (20:27)
[2018-02-22] MEDS: Mirtazapine 15 MG TAB PO SCH (20:28)
[2018-02-22] MEDS: Atorvastatin Calcium 10 MG TAB PO SCH (20:30)
[2018-02-23] MEDS: Albuterol Sulfate 2.5 mg/3 ml Neb NEB SCH ×4 (06:01→17:57)
[2018-02-23] MEDS: Mometasone/Formoterol 60 PUFF AER INH SCH ×2 (06:02→17:57)
[2018-02-23] MEDS: Apixaban 5 MG TAB PO SCH ×2 (08:05→19:35)
[2018-02-23] MEDS: guaiFENesin ER 600 MG TAB PO SCH ×2 (08:06→19:38)
[2018-02-23] MEDS: Lisinopril 10 MG TAB PO SCH ×2 (08:06→19:37)
[2018-02-23] MEDS: Cefdinir 300 MG CAP PO SCH ×2 (08:06→19:29)
[2018-02-23] MEDS: Fluticasone Propionate Nasal Spray 16 gm Bottle NASAL SCH (08:06)
[2018-02-23] MEDS: Timolol 0.5% Ophth Soln 5 ml Bottle EA EYE SCH ×2 (08:06→19:28)
[2018-02-23] MEDS: Brimonidine Tartrate 0.2% Ophth Soln 5 ml Bottle EA EYE SCH ×2 (08:06→19:28)
[2018-02-23] MEDS: Carvedilol 6.25 MG TAB PO SCH ×2 (08:06→19:36)
--- NOTE | 2018-02-23 16:14 | PRG ---
DATE OF SERVICE: 02/22/2018 SUBJECTIVE: The patient said she did not rest very well last night. She said her cough is a little better, but she did ask for a cough syrup last night and was given Robitussin DM. She was ordered trazodone 25 mg to use at nighttime if needed. OBJECTIVE: GENERAL: The patient is sitting up in a chair, dressed. She looks better and does not appear in any acute distress. VITAL SIGNS: Temperature 98.6, pulse 62, respirations 20, O2 saturation 95% on room air, and blood pressure is a little better today at 161/77. LUNGS: Have some intermittent coarse expiratory breath sounds, but no rales, no wheeze. HEART: Regular rate. EXTREMITIES: No edema. ASSESSMENT: 1. Asthmatic bronchitis. a. Complicated by hypoxemia that has resolved as of 02/19. b. Gradually improving as of 02/22/2018. 2. Chronic atrial fibrillation. a. Rate control. b. On chronic anticoagulation with Eliquis. 3. Hypertension. a. Improved as of 02/22/2018. 4. Status post pacemaker placement for bradycardia. 5. History of cancer of the breast. a. Status post right mastectomy approximately in 2009. b. No evidence of recurrence. 6. History of recurrent urinary tract infection. 7. Glaucoma. 8. Generalized weakness and deconditioning. a. Secondary to the acute illness. b. Improving as of 02/22/2018. 9. Code status, DNR. PLAN: Continue present care. Job ID: [id number] MTDD
--- NOTE | 2018-02-23 16:15 | PRG ---
DATE OF SERVICE: 02/23/2018 SUBJECTIVE: The patient says she is doing good this morning. Her breathing is good. She is not coughing. Had some trouble sleeping last night again. She tried the trazodone, not sure it helped. OBJECTIVE: GENERAL: The patient is sitting up, visiting with her son-in-law, Mauricio, who is here from [place]. She looks alert, appears in no distress. VITAL SIGNS: Show a temp 97.8, pulse 68, respirations 16, O2 saturation 95% on room air, blood pressure 169/77 and last evening 136/65. LUNGS: Clear. HEART: Regular rate. EXTREMITIES: No edema. ASSESSMENT: 1. Asthmatic bronchitis. a. Complicated by hypoxemia that has resolved as of 02/19. b. Improved. Lungs are clear as of 02/23/2018. 2. Chronic atrial fibrillation. a. Rate control. b. On chronic anticoagulation with Eliquis. 3. Hypertension. a. Improved as of 02/23. 4. Status post pacemaker placement for bradycardia. 5. History of cancer of the breast. a. Status post right mastectomy approximately in 2009. b. No evidence of recurrence. 6. History of recurrent urinary tract infection. 7. Glaucoma. 8. Generalized weakness and deconditioning. a. Secondary to the acute illness. b. Improving as of 02/23/2018. 9. Code status, DNR. PLAN: Continue present care. Continue PT and OT. Job ID: [id number] MTDD
[2018-02-23] MEDS: Acetaminophen 325 MG TAB PO PRN (19:29)
[2018-02-23] MEDS: Mirtazapine 15 MG TAB PO SCH (19:30)
[2018-02-23] MEDS: Atorvastatin Calcium 10 MG TAB PO SCH (19:37)
[2018-02-23] MEDS: traZODone HCl 50 MG TAB PO PRN (19:39)
[2018-02-24] MEDS: Melatonin 3 MG TAB PO PRN ×2 (02:05→23:28)
[2018-02-24] MEDS: Acetaminophen 325 MG TAB PO PRN ×2 (03:16→18:07)
[2018-02-24] MEDS: Mometasone/Formoterol 60 PUFF AER INH SCH ×2 (07:02→20:51)
[2018-02-24] MEDS: Albuterol Sulfate 2.5 mg/3 ml Neb NEB SCH ×4 (07:06→20:51)
[2018-02-24] MEDS: Fluticasone Propionate Nasal Spray 16 gm Bottle NASAL SCH (08:19)
[2018-02-24] MEDS: Brimonidine Tartrate 0.2% Ophth Soln 5 ml Bottle EA EYE SCH ×2 (08:20→20:53)
[2018-02-24] MEDS: guaiFENesin ER 600 MG TAB PO SCH ×2 (08:21→20:53)
[2018-02-24] MEDS: Apixaban 5 MG TAB PO SCH ×2 (08:22→20:52)
[2018-02-24] MEDS: Carvedilol 6.25 MG TAB PO SCH ×2 (08:25→20:53)
[2018-02-24] MEDS: Lisinopril 10 MG TAB PO SCH ×2 (08:25→20:54)
[2018-02-24] MEDS: Timolol 0.5% Ophth Soln 5 ml Bottle EA EYE SCH ×2 (08:26→20:54)
[2018-02-24] MEDS: Cefdinir 300 MG CAP PO SCH ×2 (08:26→20:54)
[2018-02-24] MEDS: Atorvastatin Calcium 10 MG TAB PO SCH (20:52)
[2018-02-24] MEDS: Mirtazapine 15 MG TAB PO SCH (20:53)
[2018-02-25] MEDS: Albuterol Sulfate 2.5 mg/3 ml Neb NEB SCH ×4 (07:55→20:19)
[2018-02-25] MEDS: Mometasone/Formoterol 60 PUFF AER INH SCH ×2 (08:32→20:22)
[2018-02-25] MEDS: Brimonidine Tartrate 0.2% Ophth Soln 5 ml Bottle EA EYE SCH ×2 (08:32→20:23)
[2018-02-25] MEDS: Carvedilol 6.25 MG TAB PO SCH ×2 (08:33→20:24)
[2018-02-25] MEDS: Timolol 0.5% Ophth Soln 5 ml Bottle EA EYE SCH ×2 (08:33→20:23)
[2018-02-25] MEDS: Cefdinir 300 MG CAP PO SCH (08:33)
[2018-02-25] MEDS: Apixaban 5 MG TAB PO SCH ×2 (08:33→20:24)
[2018-02-25] MEDS: Fluticasone Propionate Nasal Spray 16 gm Bottle NASAL SCH (08:33)
[2018-02-25] MEDS: Lisinopril 10 MG TAB PO SCH ×2 (08:33→20:25)
[2018-02-25] MEDS: guaiFENesin ER 600 MG TAB PO SCH ×2 (08:33→20:24)
--- NOTE | 2018-02-25 14:50 | PRG ---
DATE OF SERVICE: 02/24/2018 SUBJECTIVE: The patient said that she is doing all right. She is still not sleeping at night very well. Her cough is just minimal. Her strength is slowly improving. OBJECTIVE: GENERAL: The patient is sitting up in bed. She is alert, appears very comfortable, in no distress. VITAL SIGNS: Her temp is 98.1, pulse 69, respirations 18, O2 saturation 95%, blood pressure was 179/72. LUNGS: There are some coarse rales of the left posterior base that resolve with deeper inspiration. Remainder of the lungs clear. HEART: Regular rate. EXTREMITIES: No edema. ASSESSMENT: 1. Asthmatic bronchitis. a. Complicated by hypoxemia that has resolved as of 02/19. b. Improving as of 02/24/2018. 2. Chronic atrial fibrillation. a. Rate control. b. On chronic anticoagulation with Eliquis. 3. Hypertension. a. Improved as of 02/23. 4. Status post pacemaker placement for bradycardia. 5. History of cancer of the breast. a. Status post right mastectomy approximately in 2009. b. No evidence of recurrence. 6. History of recurrent urinary tract infection. 7. Glaucoma. 8. Generalized weakness and deconditioning. a. Secondary to the acute illness. b. Improving as of 02/24/2018. 9. Code status, DNR. 10. Insomnia. PLAN: Continue PT and OT. Continue neb treatments. Continue the Dulera. We will stop the trazodone and try increasing the mirtazapine to 45 mg at bedtime. Job ID: [id number] MTDD
[2018-02-25] MEDS: Atorvastatin Calcium 10 MG TAB PO SCH (20:22)
[2018-02-25] MEDS: Melatonin 3 MG TAB PO PRN (20:24)
[2018-02-25] MEDS: Mirtazapine 15 MG TAB PO SCH (20:24)
[2018-02-25] MEDS: Acetaminophen 325 MG TAB PO PRN (20:27)
[2018-02-26] MEDS: Mometasone/Formoterol 60 PUFF AER INH SCH ×2 (05:59→17:58)
[2018-02-26] MEDS: Albuterol Sulfate 2.5 mg/3 ml Neb NEB SCH ×4 (05:59→17:58)
[2018-02-26] MEDS: Timolol 0.5% Ophth Soln 5 ml Bottle EA EYE SCH ×2 (07:58→20:44)
[2018-02-26] MEDS: Carvedilol 6.25 MG TAB PO SCH ×2 (07:58→20:47)
[2018-02-26] MEDS: guaiFENesin ER 600 MG TAB PO SCH ×2 (07:58→20:46)
[2018-02-26] MEDS: Lisinopril 10 MG TAB PO SCH ×2 (07:58→20:45)
[2018-02-26] MEDS: Brimonidine Tartrate 0.2% Ophth Soln 5 ml Bottle EA EYE SCH ×2 (07:59→20:45)
[2018-02-26] MEDS: Apixaban 5 MG TAB PO SCH ×2 (07:59→20:46)
[2018-02-26] MEDS: Fluticasone Propionate Nasal Spray 16 gm Bottle NASAL SCH (07:59)
--- NOTE | 2018-02-26 14:55 | PRG ---
DATE OF SERVICE: 02/26/2018 SUBJECTIVE: The patient said she is breathing better, still has just a little slight cough. Her strength is improving. The patient said she still had a restless night. Her mirtazapine was increased to 45 mg last evening. OBJECTIVE: GENERAL: The patient is sitting up in a chair. She is alert, appears in no distress. Her caregiver, Jolene, is with her. VITAL SIGNS: Show a temperature of 98.3, pulse 71, respirations 20, O2 saturation 96% on room air, blood pressure 143/90. LUNGS: Clear. HEART: Regular rate. EXTREMITIES: No edema. ASSESSMENT: 1. Asthmatic bronchitis. a. Complicated by hypoxemia that has resolved as of 02/19. b. Resolving as of 02/26/2018. 2. Chronic atrial fibrillation. a. Rate control. b. On chronic anticoagulation with Eliquis. 3. Hypertension. a. Improved as of 02/26/2018. 4. Status post pacemaker placement for bradycardia. 5. History of cancer of the breast. a. Status post right mastectomy approximately in 2009. b. No evidence of recurrence. 6. History of recurrent urinary tract infection. 7. Glaucoma. 8. Generalized weakness and deconditioning. a. Secondary to the acute illness. b. Improving as of 02/26/2018. 9. Code status, DNR. 10. Insomnia. PLAN: Continue present care. Continue PT/OT. Family is making arrangements for post-hospital care, probably be able to be discharged within a few days. Job ID: [id number] MTDD
[2018-02-26] MEDS: Acetaminophen 325 MG TAB PO PRN ×2 (15:32→20:46)
[2018-02-26 16:42] VITALS: BMI 19.3
[2018-02-26] MEDS: Mirtazapine 15 MG TAB PO SCH (20:45)
[2018-02-26] MEDS: Melatonin 3 MG TAB PO PRN (20:45)
[2018-02-26] MEDS: Atorvastatin Calcium 10 MG TAB PO SCH (20:46)
[2018-02-27] MEDS: Albuterol Sulfate 2.5 mg/3 ml Neb NEB SCH ×4 (06:04→17:53)
[2018-02-27] MEDS: Mometasone/Formoterol 60 PUFF AER INH SCH ×2 (06:05→17:53)
[2018-02-27] MEDS: guaiFENesin ER 600 MG TAB PO SCH ×2 (08:21→20:07)
[2018-02-27] MEDS: Lisinopril 10 MG TAB PO SCH ×2 (08:21→20:08)
[2018-02-27] MEDS: Fluticasone Propionate Nasal Spray 16 gm Bottle NASAL SCH (08:22)
[2018-02-27] MEDS: Timolol 0.5% Ophth Soln 5 ml Bottle EA EYE SCH ×2 (08:22→20:02)
[2018-02-27] MEDS: Apixaban 5 MG TAB PO SCH ×2 (08:22→20:07)
[2018-02-27] MEDS: Carvedilol 6.25 MG TAB PO SCH ×2 (08:22→20:08)
[2018-02-27] MEDS: Brimonidine Tartrate 0.2% Ophth Soln 5 ml Bottle EA EYE SCH ×2 (08:22→20:07)
--- NOTE | 2018-02-27 13:38 | PRG ---
DATE OF SERVICE: 02/27/2018 SUBJECTIVE: The patient thinks she is doing better. She is making progress with her therapy. She is walking at best up to 100 feet two times a day, yesterday only 50 feet. She is using a rolling walker with supervision. She usually has minimal assistance with transfers. The patient said she slept pretty well until about midnight and then the rest of the night was restless. OBJECTIVE: GENERAL: The patient is sitting up in her bedside chair. She is alert and talkative, appears in no distress. VITAL SIGNS: Her temperature is 97.7, pulse 66, respirations 15, O2 saturation 96% on room air, and blood pressure 134/64. LUNGS: Clear. HEART: Regular rate. EXTREMITIES: No edema. ASSESSMENT: 1. Asthmatic bronchitis. a. Complicated by hypoxemia that has resolved as of 02/19. b. Resolving as of 02/27/2018. 2. Chronic atrial fibrillation. a. Rate control. b. On chronic anticoagulation with Eliquis. 3. Hypertension. a. Controlled as of 02/27/2018. 4. Status post pacemaker placement for bradycardia. 5. History of cancer of the breast. a. Status post right mastectomy approximately in 2009. b. No evidence of recurrence. 6. History of recurrent urinary tract infection. 7. Glaucoma. 8. Generalized weakness and deconditioning. a. Secondary to the acute illness. b. Improved walking at best up to 100 feet x2 with a rolling walker. Requires minimum assistance with transfers as of 02/27/2018. 9. Code status, DNR. 10. Insomnia. PLAN: Continue PT and OT. Job ID: [id number] [facility]
[2018-02-27] MEDS: Mirtazapine 15 MG TAB PO SCH (20:07)
[2018-02-27] MEDS: Melatonin 3 MG TAB PO PRN (20:07)
[2018-02-27] MEDS: Atorvastatin Calcium 10 MG TAB PO SCH (20:08)
[2018-02-27] MEDS: Acetaminophen 325 MG TAB PO PRN (21:29)
[2018-02-28] MEDS: Albuterol Sulfate 2.5 mg/3 ml Neb NEB SCH ×4 (05:30→19:18)
[2018-02-28] MEDS: Mometasone/Formoterol 60 PUFF AER INH SCH ×2 (05:30→19:17)
[2018-02-28] MEDS: Timolol 0.5% Ophth Soln 5 ml Bottle EA EYE SCH ×2 (08:29→21:15)
[2018-02-28] MEDS: Fluticasone Propionate Nasal Spray 16 gm Bottle NASAL SCH (08:30)
[2018-02-28] MEDS: Carvedilol 6.25 MG TAB PO SCH ×2 (08:30→21:15)
[2018-02-28] MEDS: guaiFENesin ER 600 MG TAB PO SCH ×2 (08:31→21:13)
[2018-02-28] MEDS: Lisinopril 10 MG TAB PO SCH ×2 (08:31→21:15)
[2018-02-28] MEDS: Apixaban 5 MG TAB PO SCH ×2 (08:31→21:14)
[2018-02-28] MEDS: Brimonidine Tartrate 0.2% Ophth Soln 5 ml Bottle EA EYE SCH ×2 (08:32→21:16)
[2018-02-28] MEDS: Atorvastatin Calcium 10 MG TAB PO SCH (21:12)
[2018-02-28] MEDS: Mirtazapine 15 MG TAB PO SCH (21:13)
[2018-03-01] MEDS: Mometasone/Formoterol 60 PUFF AER INH SCH ×2 (07:07→19:18)
[2018-03-01] MEDS: Albuterol Sulfate 2.5 mg/3 ml Neb NEB SCH ×2 (07:08→11:26)
[2018-03-01] MEDS: Apixaban 5 MG TAB PO SCH ×2 (08:04→21:03)
[2018-03-01] MEDS: Fluticasone Propionate Nasal Spray 16 gm Bottle NASAL SCH (08:05)
[2018-03-01] MEDS: Brimonidine Tartrate 0.2% Ophth Soln 5 ml Bottle EA EYE SCH ×2 (08:05→21:02)
[2018-03-01] MEDS: Carvedilol 6.25 MG TAB PO SCH ×2 (08:05→21:05)
[2018-03-01] MEDS: guaiFENesin ER 600 MG TAB PO SCH ×2 (08:05→21:03)
[2018-03-01] MEDS: Timolol 0.5% Ophth Soln 5 ml Bottle EA EYE SCH ×2 (08:08→21:00)
[2018-03-01] MEDS: Lisinopril 10 MG TAB PO SCH ×2 (08:20→21:02)
[2018-03-01] MEDS ORDERED: Albuterol Sulfate 2.5 mg/3 ml Neb NEB PRN (13:57)
--- NOTE | 2018-03-01 14:45 | PRG ---
DATE OF SERVICE: 02/28/2018 SUBJECTIVE: The patient says she is feeling better today. Still did not sleep too well last night. OBJECTIVE: GENERAL: The patient is sitting up in her chair with her caregiver, Jolene with her. The patient is alert, talkative, appears very comfortable, in no distress. VITAL SIGNS: Temperature 98.2, pulse 64, respirations 20, O2 saturation 96% on room air, and blood pressure 135/61. LUNGS: Clear. HEART: Regular rate. EXTREMITIES: No edema. ASSESSMENT: 1. Asthmatic bronchitis. a. Complicated by hypoxemia that has resolved as of 02/19. b. Resolved as of 02/28/2018. 2. Chronic atrial fibrillation. a. Rate control. b. On chronic anticoagulation with Eliquis. 3. Hypertension. a. Controlled as of 02/28/2018. 4. Status post pacemaker placement for bradycardia. 5. History of cancer of the breast. a. Status post right mastectomy approximately in 2009. b. No evidence of recurrence. 6. History of recurrent urinary tract infection. 7. Glaucoma. 8. Generalized weakness and deconditioning. a. Secondary to the acute illness. b. Improved walking at best up to 100 feet x2 with a rolling walker. Requires minimum assistance with transfers as of 02/27/2018. 9. Code status, DNR. 10. Insomnia. PLAN: Overall, the patient is making gradual improvement. We will continue present care. Tentatively, making plan for her discharge on Saturday, 03/03. Job ID: [id number] MTDD
[2018-03-01] MEDS: Acetaminophen 325 MG TAB PO PRN ×2 (14:46→23:12)
--- NOTE | 2018-03-01 14:47 | PRG ---
DATE OF SERVICE: 03/01/2018 SUBJECTIVE: The patient says she is doing good this morning. Her breathing is doing good. OBJECTIVE: GENERAL: The patient is dressed, sitting up in her bedside chair with her caregiver, Jolene with her. She is alert, talkative, appears in no distress. VITAL SIGNS: Her temperature is 98.2, pulse 66, respirations 20, O2 saturation 94% on room air, blood pressure 135/61. LUNGS: Clear. HEART: Regular rate. EXTREMITIES: No edema. ASSESSMENT: 1. Asthmatic bronchitis. a. Complicated by hypoxemia that has resolved as of 02/19. b. Resolved and no recurrence as of 03/01/2018. 2. Chronic atrial fibrillation. a. Rate control. b. On chronic anticoagulation with Eliquis. 3. Hypertension. a. Controlled as of 03/01/2018. 4. Status post pacemaker placement for bradycardia. 5. History of cancer of the breast. a. Status post right mastectomy approximately in 2009. b. No evidence of recurrence. 6. History of recurrent urinary tract infection. 7. Glaucoma. 8. Generalized weakness and deconditioning. a. Secondary to the acute illness. b. Improved walking at best up to 100 feet x2 with a rolling walker. Requires minimum assistance with transfers as of 03/01/2018. 9. Code status, DNR. 10. Insomnia. PLAN: Continue present care. Arrangements were being made for her to be discharged to her home, where she has caregivers around the clock on Saturday, 03/03. Job ID: [id number] MTDD
[2018-03-01 18:46] LABS: Bilirubin Small (Negative); Blood, Urine Negative (Negative); Clarity Slightly Cloudy (Clear); Glucose, Urine (Dipstick) Negative (Negative); Leukocyte Moderate (Negative); Nitrite Negative (Negative); Protein, Urine (Dipstick) Trace mg/dL (Neg-Trace); Specific Gravity, Urine 1.015 (1.005-1.030); Urobilinogen 0.2 mg/dL (0.2-1.0); pH, Urine 5.5 (5.0-9.0)
[2018-03-01 18:48] LABS: Bacteria/HPF 1+ HPF (None Seen); RBC/HPF 0-3 HPF (0-3); WBC/HPF 21-50 HPF (0-3)
[2018-03-01] MEDS: Mirtazapine 15 MG TAB PO SCH (21:01)
[2018-03-01] MEDS: Atorvastatin Calcium 10 MG TAB PO SCH (21:04)
[2018-03-01] MEDS ORDERED: Phenazopyridine HCl 97.5 MG TABLET PO SCH (23:00)
[2018-03-01] MEDS ORDERED: Ciprofloxacin 500 MG TAB PO SCH (23:00)
[2018-03-02] MEDS: Ciprofloxacin 500 MG TAB PO SCH ×2 (06:09→20:55)
[2018-03-02] MEDS: Mometasone/Formoterol 60 PUFF AER INH SCH ×2 (07:33→20:53)
[2018-03-02] MEDS: Timolol 0.5% Ophth Soln 5 ml Bottle EA EYE SCH ×2 (09:05→21:02)
[2018-03-02] MEDS: Apixaban 5 MG TAB PO SCH ×2 (09:07→20:55)
[2018-03-02] MEDS: guaiFENesin ER 600 MG TAB PO SCH ×2 (09:07→20:59)
[2018-03-02] MEDS: Fluticasone Propionate Nasal Spray 16 gm Bottle NASAL SCH (09:07)
[2018-03-02] MEDS: Acetaminophen 325 MG TAB PO PRN ×3 (09:07→23:54)
[2018-03-02] MEDS: Lisinopril 10 MG TAB PO SCH ×2 (09:08→20:59)
[2018-03-02] MEDS: Carvedilol 6.25 MG TAB PO SCH ×2 (09:08→20:59)
[2018-03-02] MEDS: Phenazopyridine HCl 97.5 MG TABLET PO SCH ×2 (09:09→16:02)
[2018-03-02] MEDS: Brimonidine Tartrate 0.2% Ophth Soln 5 ml Bottle EA EYE SCH ×2 (09:11→20:58)
[2018-03-02] MEDS: Atorvastatin Calcium 10 MG TAB PO SCH (20:57)
[2018-03-02] MEDS: Mirtazapine 15 MG TAB PO SCH (21:00)
[2018-03-02] MEDS: Melatonin 3 MG TAB PO PRN (23:54)
[2018-03-03] MEDS: Acetaminophen 325 MG TAB PO PRN (04:24)
[2018-03-03] MEDS: Ciprofloxacin 500 MG TAB PO SCH (06:32)
[2018-03-03 08:36] VITALS: TEMP 98.6
[2018-03-03] MEDS: Mometasone/Formoterol 60 PUFF AER INH SCH (09:08)
[2018-03-03] MEDS: Timolol 0.5% Ophth Soln 5 ml Bottle EA EYE SCH (09:12)
[2018-03-03] MEDS: Fluticasone Propionate Nasal Spray 16 gm Bottle NASAL SCH (09:13)
[2018-03-03] MEDS: Carvedilol 6.25 MG TAB PO SCH (09:14)
[2018-03-03] MEDS: Apixaban 5 MG TAB PO SCH (09:14)
[2018-03-03] MEDS: guaiFENesin ER 600 MG TAB PO SCH (09:14)
[2018-03-03] MEDS: Lisinopril 10 MG TAB PO SCH (09:15)
[2018-03-03 09:16] VITALS: BP 164/75
[2018-03-03] MEDS: Brimonidine Tartrate 0.2% Ophth Soln 5 ml Bottle EA EYE SCH (09:16)
--- NOTE | 2018-03-03 14:11 | PRG ---
DATE OF SERVICE: 03/02/2018 Yesterday afternoon, the patient was complaining of some dysuria. Her urinalysis was obtained and showed wbc's 20 to 50, urine nitrite was negative, epithelial cells 7 to 10 with 1+ bacteria. The patient was treated for UTI with Cipro 500 mg b.i.d. for 7 day course and Pyridium 200 mg t.i.d. for 2 days. Now on the morning of 03/02/2018, she says she feels better and the burning is a lot better. Culture on the urine pending. Job ID: [id number]
--- NOTE | 2018-03-03 14:12 | DIS ---
DATE OF ADMISSION: 02/17/2018 DATE OF DISCHARGE: 03/03/2018 Admitted to acute care on 02/14/2018, transferred to extended care on 02/17/2018, and discharged on 03/03/2018. FINAL DIAGNOSES: 1. Asthmatic bronchitis. a. Complicated by hypoxemia that is resolved. b. Resolved with no recurrence as of 03/03/2018. 2. Chronic atrial fibrillation. a. Rate control therapy. b. On chronic anticoagulation with Eliquis. 3. Hypertension. a. Controlled. 4. Status post pacemaker placement for bradycardia. 5. History of cancer of the breast. a. Status post right mastectomy in 2009. b. No evidence recurrence. 6. History of recurrent urinary tract infection. 7. Glaucoma. 8. Generalized weakness and deconditioning. a. Secondary to the acute bronchitis. b. Improved. Walking up to 100 feet x2 with a rolling walker. Requires minimal assistance with transfers as of 03/03/2018. 9. Urinary tract infection. 10. Insomnia. 11. Code status do not resuscitate. SUMMARY: The patient is an 87-year-old white female, who has a history of chronic atrial fibrillation, for which the rate is controlled and she is on chronic anticoagulant with Eliquis. She has hypertension and has a pacemaker for bradycardia. She has had problems with recurrent urinary tract infection and she also has glaucoma and continual problem with insomnia. She lives at her home and has caregivers who stay with her / to assist her with her ADLs and her instrumental ADLs. The patient had developed upper respiratory infection that went into a bronchitis and got progressively worse. She came to the emergency room on 02/14 because of increasing shortness of breath and cough. Her O2 saturation was only 88% on room air. Chest x-ray was clear. She was admitted to the hospital with a diagnosis of an asthmatic bronchitis complicated by hypoxemia. She had grown much weaker, to where she could not hardly even get up without assistance. In the hospital, she was placed on supplemental O2 and nebulization treatments with albuterol, and was continued on ceftriaxone treatments. During her acute hospital stay, she improved and breathing improved, but she was still extremely weak. She no longer had any fever. Her O2 saturation on room air was improving. She was moved to Extended Care on 02/17/2018 for continued treatment of the asthmatic bronchitis and also for physical therapy. The patient's asthmatic bronchitis gradually resolved. Her hypoxemia resolved and her O2 saturation remained in the mid 90s on room air. She had been placed on Dulera, which later was stopped and also nebulization treatments were stopped. She did very well with her physical therapy and by the time of her discharge, was able to walk up to 100 feet on to twice today with a rolling walker and just caregiver assist. She was transferring with just minimal assistance. She has a chronic atrial fibrillation and pacemaker for the bradycardia. She had no episodes of rapid heart rate and was maintained on her Eliquis. She has chronic problems with insomnia and some depression. Her mirtazapine was increased to 45 mg that she takes in the evening to try to help with some of her anxiety and depression and also to assist with her sleep. She did develop a couple days for her discharge some urinary frequency and dysuria. Her urinalysis showed 21 to 50 WBCs. Culture for this is pending. She was placed on Cipro 500 mg b.i.d., which will be continued for a 7-day period. She was given Pyridium, but this seem to upset her stomach and this was stopped. About 03/03/2018, her lungs remained clear. She remained afebrile and she was no longer having the dysuria. Her blood pressure 122/57, O2 saturation 93% on room air. Her condition improved such she felt that she could manage fine at home, particularly since she has two excellent caregivers who stay with her 24/09. DISPOSITION: DIET: Regular diet, no added salt. ACTIVITIES: Ambulate with the use of a walker. We will arrange for [facility] to see her and arrange for in-home PT and OT. MEDICATIONS: 1. Cipro 500 mg b.i.d. x6 days. 2. Acetaminophen 325 mg 2 every 4 hours as needed. 3. Eliquis 2.5 mg b.i.d. 4. Atorvastatin 40 mg at bedtime. 5. Combigan eyedrops one drop in each eye b.i.d. 6. Carvedilol 6.25 mg b.i.d. 7. Fluticasone one spray in each nostril daily. 8. Lisinopril 10 mg b.i.d. 9. Melatonin 3 mg at bedtime. 10. Mirtazapine 45 mg at bedtime. 11. Omeprazole 20 mg daily. FOLLOWUP: [facility] will see the patient and arrange for in-home PT and OT. The patient should see her primary care physician, Dr. Walters in [place] in 2 weeks. CODE STATUS: DNR. Job ID: [id number]
== END 2018-03-03 11:00 | disposition home health service (06) | DRG 202 ==
LOC: MADMS 10:50
PROVIDERS: ADMIT Family Medicine; ATTEND Family Medicine
DX: J20.9 Acute bronchitis, unspecified (principal); N39.0 Urinary tract infection, site not specified; I48.2 Chronic atrial fibrillation; Z66 Do not resuscitate; I10 Essential (primary) hypertension; H40.9 Unspecified glaucoma; J45.909 Unspecified asthma, uncomplicated; R09.02 Hypoxemia; G47.00 Insomnia, unspecified; F32.9 Major depressive disorder, single episode, unspecified; Z95.0 Presence of cardiac pacemaker; Z85.3 Personal history of malignant neoplasm of breast; Z90.12 Acquired absence of left breast and nipple; Z79.01 Long term (current) use of anticoagulants
CPT/HCPCS: 36415; 80048; 81001; 85025; 87086; G8987-GO-CL; G8988-GO-CI; J7611

== ENCOUNTER 2018-04-12 17:18 | Emergency (ER) | payer MEDICARE ==
[2018-04-12 17:54] LABS: #Lymphocytes 0.9 thou/uL (1.20-3.40); #Monocytes 0.7 thou/uL (0.11-0.59); #Neutrophils 9.4 thou/uL (1.40-6.50); %Basophils 0.4 % (0.0-1.0); %Eosinophils 0.4 % (0.0-10.0); %Lymphocytes 7.9 % (21.0-51.0); %Monocytes 6.2 % (0.0-10.0); %Neutrophils 85.1 % (42.0-75.0); Mean Corpuscular HGB CONC 34.3 g/dL (32.0-36.0); Mean Corpuscular Volume 96.1 fL (78.0-98.0); Platelet Count 217 thou/uL (130-400); RBC Distribution Width 12.5 % (11.5-14.5); Red Blood Cell (RBC) Count 3.95 mill/uL (4.20-5.40)
--- NOTE | 2018-04-12 18:07 | RAD ---
CHEST TWO VIEW: 04/12/18 HISTORY: Epigastric pain. COMPARISON: Chest radiogram 02/14/18. FINDINGS: Heart size is enlarged. Small effusions. Mild pulmonary venous congestion. Cardiac device is similar. Lower thoracic spine vertebral cement is similar. Scarring in the lung apices. IMPRESSION: Cardiomegaly and mild pulmonary venous congestion. Small effusions. POS: [facility]
[2018-04-12 18:10] LABS: ALT (SGPT) 14 U/L (8-55); AST (SGOT) 21 U/L (5-34); Albumin 3.9 g/dL (3.4-4.8); Alkaline Phosphatase 83 U/L (40-150); Anion Gap 15 mmol/L (10-20); BUN (Urea Nitrogen) 16 mg/dL (9.8-20.1); Bilirubin, Total 0.7 mg/dL (0.2-1.2); Calc. Creatinine Clearance 0 mL/min (70-130); Calcium 9.1 mg/dL (7.8-10.44); Carbon Dioxide 25 mmol/L (23-31); Chloride 102 mmol/L (98-107); Estimated GFR-MDRD 63; Globulin 3.7 g/dL (2.4-3.5); Glucose 106 mg/dL (83-110); Lipase 39 U/L (8-78); Potassium 3.7 mmol/L (3.5-5.1); Protein, Total 7.6 g/dL (6.0-8.3); Sodium 138 mmol/L (136-145)
== END 2018-04-12 18:54 | disposition short-term general hospital (02) ==
LOC: MADERS 17:18
DX: R07.9 Chest pain, unspecified (principal); I48.91 Unspecified atrial fibrillation; I10 Essential (primary) hypertension; I25.10 Atherosclerotic heart disease of native coronary artery without angina pectoris; Z79.899 Other long term (current) drug therapy
CPT/HCPCS: 36415; 71046; 80053; 83690; 84484; 85025; 93005

== ENCOUNTER 2019-10-21 08:51 | Outpatient (CLI) | payer MEDICARE ==
[2019-10-21 09:32] LABS: Bilirubin Negative (Negative); Blood, Urine Trace (Negative); Clarity Clear (Clear); Glucose, Urine (Dipstick) Negative (Negative); Ketone, Urine Negative (Negative); Leukocyte Trace (Negative); Nitrite Negative (Negative); Protein, Urine (Dipstick) Negative (Neg-Trace); Urobilinogen 0.2 mg/dL (Less than 2); pH, Urine 7.5 (5.0-9.0)
[2019-10-21 09:42] LABS: RBC/HPF 0-3 HPF (0-3)
[2019-10-21 09:44] LABS: Bacteria/HPF Rare-Few HPF (None Seen); Squamous Epithelial 0-3 HPF (0-3)
[2019-10-21 09:45] LABS: Urine Culture Reflex Yes Yes
[2019-10-21 10:28] LABS: #Lymphocytes 0.9 thou/uL (1.20-3.40); #Monocytes 0.4 thou/uL (0.11-0.59); #Neutrophils 3.8 thou/uL (1.40-6.50); %Basophils 0.7 % (0.0-1.0); %Eosinophils 0.9 % (0.0-10.0); %Lymphocytes 17.1 % (21.0-51.0); %Neutrophils 73.3 % (42.0-75.0); Mean Corpuscular HGB CONC 32.6 g/dL (32.0-36.0); Mean Corpuscular Hemoglobin 31.2 pg (27.0-31.0); Mean Corpuscular Volume 95.8 fL (78.0-98.0); Mean Platelet Volume 7.6 fL (7.4-10.4); Platelet Count 177 thou/uL (130-400); RBC Distribution Width 11.6 % (11.5-14.5); Red Blood Cell (RBC) Count 4.17 mill/uL (4.20-5.40); White Blood Cell (WBC) Count 5.2 thou/uL (4.8-10.8)
[2019-10-21 11:10] LABS: ALT (SGPT) 15 U/L (8-55); AST (SGOT) 22 U/L (5-34); Alkaline Phosphatase 63 U/L (40-110); Anion Gap 13 mmol/L (10-20); BUN (Urea Nitrogen) 18 mg/dL (9.8-20.1); Bilirubin, Direct 0.3 mg/dL (0.1-0.3); Bilirubin, Total 0.5 mg/dL (0.2-1.2); Calc. Creatinine Clearance 0 mL/min (70-130); Calcium 9.1 mg/dL (7.8-10.44); Carbon Dioxide 25 mmol/L (23-31); Cardiac Risk 2.9 (Less than 4.5); Chloride 104 mmol/L (98-107); Cholesterol 177 mg/dl (< 200 Desired); Estimated GFR-MDRD 55; Glucose 100 mg/dL (83-110); HDL Cholesterol 62 mg/dL (>60 Neg Risk); LDL Cholesterol, Calculated 100 mg/dL; Potassium 4.3 mmol/L (3.5-5.1); Protein, Total 7.4 g/dL (6.0-8.3); Sodium 138 mmol/L (136-145); Triglycerides 77 mg/dL (Less than 150)
[2019-10-21 17:15] LABS: Hemoglobin A1c 5.1 % (4.0-6.0)
[2019-10-21 17:39] LABS: Free T4 (Free Thyroxine) 1.06 ng/dL (0.70-1.48)
[2019-10-21 17:41] LABS: Vitamin D, 25 Hydroxy 33.7 ng/ml (> 30.0)
== END 2019-10-21 08:52 | disposition home or self-care (01) ==
LOC: MADLAB 08:51
PROVIDERS: ATTEND Pediatrics
DX: N39.0 Urinary tract infection, site not specified (principal); E55.9 Vitamin D deficiency, unspecified; I10 Essential (primary) hypertension
CPT/HCPCS: 36415; 80048; 80061; 80076; 81001; 82306; 83036; 84439; 84443; 85025; 87077; 87086; 87186

== ENCOUNTER 2020-01-20 18:24 | Emergency (ER) | payer MEDICARE ==
[~2020-01-20 18:24] MED LIST: Iopamidol 370 76% 125 ML VIAL FS ONE
[2020-01-20 19:08] LABS: #Lymphocytes 0.5 thou/uL (1.20-3.40); #Monocytes 0.4 thou/uL (0.11-0.59); #Neutrophils 12.8 thou/uL (1.40-6.50); %Basophils 0.2 % (0.0-1.0); %Lymphocytes 3.8 % (21.0-51.0); %Monocytes 3.2 % (0.0-10.0); %Neutrophils 92.8 % (42.0-75.0); Hemoglobin 13.8 g/dL (12.0-16.0); Mean Corpuscular Hemoglobin 32.2 pg (27.0-31.0); Mean Corpuscular Volume 94.7 fL (78.0-98.0); Mean Platelet Volume 7.5 fL (7.4-10.4); Platelet Count 186 thou/uL (130-400); Red Blood Cell (RBC) Count 4.28 mill/uL (4.20-5.40); White Blood Cell (WBC) Count 13.8 thou/uL (4.8-10.8)
--- NOTE | 2020-01-20 19:13 | RAD ---
PORTABLE CHEST: 01/20/20 HISTORY: Dyspnea. COMPARISON: 04/12/18 exam. Cardiomegaly with mild vascular congestion similar to the prior exam. Evidence of small bilateral eff usions. Pacemaker leads are unchanged. IMPRESSION: Mild vascular congestion with small bilateral effusions. POS: [facility]
[2020-01-20 19:21] LABS: ALT (SGPT) 14 U/L (8-55); AST (SGOT) 31 U/L (5-34); Albumin 4.2 g/dL (3.4-4.8); Alkaline Phosphatase 52 U/L (40-110); Anion Gap 25 mmol/L (10-20); BUN (Urea Nitrogen) 29 mg/dL (9.8-20.1); Bilirubin, Total 0.8 mg/dL (0.2-1.2); Calc. Creatinine Clearance 0 mL/min (70-130); Calcium 9.5 mg/dL (7.8-10.44); Carbon Dioxide 19 mmol/L (23-31); Chloride 95 mmol/L (98-107); Estimated GFR-MDRD 54; Globulin 4.4 g/dL (2.4-3.5); Glucose 97 mg/dL (83-110); Potassium 4.3 mmol/L (3.5-5.1); Protein, Total 8.6 g/dL (6.0-8.3); Sodium 135 mmol/L (136-145)
[2020-01-20 19:22] LABS: CRP (Inflammatory) 21.55 mg/dL (= or < 0.5)
[2020-01-20 19:39] LABS: CKMB 1.9 ng/mL (0-6.6)
[2020-01-20] MEDS ORDERED: cefTRIAXone\\ROCEPHIN 1 GM VIAL ONE (20:18)
[2020-01-20] MEDS ORDERED: Sodium Chloride 0.9% 100 ML ONE (20:18)
[2020-01-20] MEDS ORDERED: Azithromycin 500 MG VIAL ONE (20:18)
[2020-01-20] MEDS ORDERED: Sodium Chloride 0.9% 250 ML 250 ML ONE (20:18)
[2020-01-20] MEDS ORDERED: Nitroglycerin 2% Ointment 1 INCH/1 GM Packet ONE (20:18)
[2020-01-20] MEDS ORDERED: Aspirin 325 MG TAB ONE (20:18)
--- NOTE | 2020-01-20 21:10 | CT ---
CT ANGIOGRAM THORAX WITH CONTRAST: (CTA pulmonary angiogram) DATE: 01/20/2020 HISTORY: 89-year-old female with dyspnea and elevated d-dimer TECHNIQUE: IV injection of iodinated contrast. Scan acquisition timing attempted to coincide with iodinated contrast bolus reaching maximal density in pulmonary arteries. 3-D MIP reconstructions. FINDINGS: No pulmonary thromboembolism identified. Ectasia and tortuosity of thoracic aorta without dissection or rupture. Cardiomegaly with four-chamber dilation. Diffuse centrilobular emphysematous changes. Moderately large region of groundglass infiltrate at basilar and superior segments of left lower lobe . Uncertain whether chronic or acute. Prominent pulmonary scars at apical segment of right upper lobe, anterior segment of right upper lobe , and right middle lobe. No pleural effusion or pneumothorax. Central and subpleural groundglass infiltrate at basilar segments of right lower lobe.. IMPRESSION: 1) no evidence of pulmonary thromboembolism. 2) cardiomegaly with four-chamber dilation. 3.) Broad groundglass infiltrates in the bilateral lower lobes, left greater than right. 4) centrilobular emphysema 5) extensive right upper lobe and right middle lobe pulmonary scarring.
[2020-01-20 21:19] LABS: Bilirubin Small (Negative); Blood, Urine Small (Negative); Glucose, Urine (Dipstick) Negative (Negative); Ketone, Urine 80 mg/dL (Negative); Leukocyte Negative (Negative); Nitrite Negative (Negative); Protein, Urine (Dipstick) > or equal to 300 mg/dL (Neg-Trace); Urobilinogen 0.2 mg/dL (Less than 2); pH, Urine 5.5 (5.0-9.0)
[2020-01-20 21:25] LABS: Specific Gravity, Urine 1.029 (1.002-1.036)
[2020-01-20 21:27] LABS: Clarity Slightly Cloudy (Clear); RBC/HPF 0-3 HPF (0-3); Squamous Epithelial 0-3 HPF (0-3); WBC/HPF 0-3 HPF (0-3)
[2020-01-20 21:28] LABS: Bacteria/HPF 1+ HPF (None Seen); Mucous/LPF 1+ LPF (<2+)
[2020-01-20] MEDS ORDERED: Acetaminophen 500 MG TAB ONE (22:02)
== END 2020-01-20 22:07 | disposition short-term general hospital (02) ==
LOC: MADERS 18:24
DX: J84.89 Other specified interstitial pulmonary diseases (principal); J96.91 Respiratory failure, unspecified with hypoxia; I25.10 Atherosclerotic heart disease of native coronary artery without angina pectoris; F03.90 Unspecified dementia, unspecified severity, without behavioral disturbance, psychotic disturbance, mood disturbance, and anxiety; I10 Essential (primary) hypertension; Z85.3 Personal history of malignant neoplasm of breast; Z79.01 Long term (current) use of anticoagulants; Z79.899 Other long term (current) drug therapy
CPT/HCPCS: 71045; 71275; 80053; 81003; 81015; 82550; 82553; 83605; 84484; 85025; 85379; 86140; 87040; 87086; 87804; 93005; 94760; J0456; J0696; J3490; J7050; Q9967

== ENCOUNTER 2020-01-26 11:41 | Inpatient (IN) | payer MEDICARE ==
[2020-01-26] MEDS: hydrALAZINE 25 MG TAB PO SCH ×2 (15:06→20:34)
[2020-01-26] MEDS: Rosuvastatin 10 MG TAB PO SCH (20:32)
[2020-01-26] MEDS: Apixaban 5 MG TAB PO SCH (20:33)
[2020-01-26] MEDS: Acetaminophen 325 MG TAB PO PRN (20:34)
[2020-01-26] MEDS: Carvedilol 6.25 MG TAB PO SCH (20:34)
[2020-01-27] MEDS: Acetaminophen 325 MG TAB PO PRN ×2 (04:06→10:45)
[2020-01-27 05:52] LABS: ALT (SGPT) 30 U/L (8-55); AST (SGOT) 22 U/L (5-34); Albumin 3.6 g/dL (3.4-4.8); Alkaline Phosphatase 45 U/L (40-110); Anion Gap 18 mmol/L (10-20); BUN (Urea Nitrogen) 28 mg/dL (9.8-20.1); Bilirubin, Total 0.7 mg/dL (0.2-1.2); Calc. Creatinine Clearance 45 mL/min (70-130); Calcium 9.2 mg/dL (7.8-10.44); Carbon Dioxide 25 mmol/L (23-31); Chloride 94 mmol/L (98-107); Globulin 3.6 g/dL (2.4-3.5); Glucose 94 mg/dL (83-110); Potassium 3.7 mmol/L (3.5-5.1); Protein, Total 7.2 g/dL (6.0-8.3); Sodium 133 mmol/L (136-145)
--- NOTE | 2020-01-27 05:56 | HP ---
CHIEF COMPLAINT: Weak following hospitalization for COVID pneumonia. HISTORY OF PRESENT ILLNESS: The patient is an 89-year-old white female, who has a history of chronic atrial fibrillation, for which she is on Eliquis; hypertension; and status post pacemaker placement for bradycardia. She has a history of cancer of the breast, for which she has undergone right mastectomy in 2009 with no signs of recurrence. She has had trouble with recurring urinary tract infections. She resides at home, but has two ladies, who care for her 24/09 and assist her with all her ADLs. Her caregiver became sick with COVID and one was hospitalized with COVID pneumonia. The patient was admitted to [facility] for shortness of breath and was found to be hypoxic, and CT scan showed evidence of bilateral ground- glass opacities consistent with COVID. Her rapid COVID test was positive done on 01/20/2020. She was treated with azithromycin IV, ceftriaxone, and dexamethasone. She required supplemental O2. She gradually improved and was able to be switched to oral dexamethasone and azithromycin. She was left very weak. She said she has not gotten up out of bed and her eating was less than usual. The patient was transferred to [facility] for continued convalescence from the COVID pneumonia. She was now not requiring any supplemental O2, but she was very weak, was in the hopes that her general functional capability could be improved. The patient was seen after her arrival. Nurses said initially she seemed restless and agitated. Her O2 saturation on room air was 94%. She was calling out for people that she knew. Gradually, they were able to redirect her and she calmed down. I saw her late afternoon and she was calm, little sleepy, recognized me, but could not really tell me what had happened to her. She said the first thing she really remembers was waking up in the hospital. PAST MEDICAL HISTORY: The patient has chronic atrial fibrillation, for which she is on Eliquis with the rates controlled; hypertension. She has had a pacemaker placed for bradycardia. She had a fall in December of 2017, resulted in mildly comminuted impacted fracture of the right humerus that was managed nonoperatively. She has hypertension; cancer of the breast, for which she underwent a right mastectomy in 2009 and has had no recurrence. She had a gastric bypass many years ago. She has a kyphoplasty of the lower thoracic vertebrae. She has glaucoma and hyperlipidemia and has been treated for urinary tract infections. PRESENT MEDICINES: 1. Eliquis 2.5 mg b.i.d. 2. Azithromycin 250 mg daily for five doses. 3. Dexamethasone 6 mg daily for five doses. 4. Carvedilol 6.25 mg b.i.d. 5. Omeprazole 20 mg b.i.d. 6. Zinc 220 mg daily. 7. Rosuvastatin 5 mg daily. 8. Hydralazine 25 mg t.i.d. ALLERGIES: LATEX, LEVOFLOXACIN, PENICILLIN, AND PHENAZOPYRIDINE. REVIEW OF SYSTEMS: CONSTITUTIONAL: The patient said she is just tired and just wants to stay in bed. She does not know if she has had any fever. She said she had not eaten much, but thought she had a little bit yesterday. HEAD AND NECK: The patient denies her head hurting. EYES, EARS, NOSE, AND THROAT: No complaints. PULMONARY: The patient said she has been previously a little short of breath, but not now. She said she is not coughing. GI: The patient has had no nausea or vomiting. No diarrhea. She is not eating a lot. : No complaints. ADLS: The patient requires assistance with her ADLs. She has two caregivers, who help her at home. She is usually able to ambulate short distances with a walker. NEUROLOGIC: Nurses said the patient was disoriented and agitated this afternoon, but seems to have settled down. HABITS: Alcohol, none. Tobacco, none. SOCIAL HISTORY: The patient lives at her home and has two caregivers, who take care of her 24/09. CODE STATUS: DNR. PHYSICAL EXAMINATION: GENERAL: Shows an 89-year-old white female, who is lying in bed. She appears very weak. She is awake and recognizes me, but could not give me any information of what had recently happened to her. She just says she is tired. She does not appear in any acute distress. VITAL SIGNS: Show a temperature of 97.6, pulse 64, respirations 24, O2 saturation 94% on room air, blood pressure 170/85, and her weight is 125. HEENT: Head; normocephalic. Eyes; pupils are equal, round, and reactive. Ears; TMs are clear. Nose; normal mouth and throat. Mucous membranes are moist. NECK: Carotids are equal and strong. No bruits. Thyroid, not enlarged. LUNGS: There are good breath sounds. The patient has some rales at the posterior bases that are very mild. ABDOMEN: Soft with no organomegaly. EXTREMITIES: No edema. NEUROLOGIC: The patient is alert, but disoriented to time and place and situation. She has generalized weakness that is nonfocal. CHEST: The patient has had a right mastectomy. The patient has a pacemaker in the left upper anterior chest. IMPRESSION: 1. Severe generalized weakness. 2. COVID pneumonia. a. Requiring hospitalization from 01/20 to 01/25 at [facility]. b. Rapid COVID test positive on 01/20/2020. c. Treated with IV azithromycin, ceftriaxone, and dexamethasone, and supplemental O2. d. Improved. 3. COVID infection. a. COVID pneumonia, improving. b. Complicated by severe weakness and deconditioning and marked decline in functional capability. c. Complicated by probable COVID encephalopathy with increased confusion. 4. Chronic atrial fibrillation. a. Rate control. b. On chronic anticoagulant with Eliquis. 5. Hypertension. 6. Status post pacemaker placement for bradycardia. 7. History of breast cancer. a. Status post right mastectomy in 2009. b. No evidence of recurrence. 8. History of weakness. a. Prior to this acute illness, the patient requires assistance with her ADLs and walker to ambulate. 9. Code status, DNR. PLAN: 1. The patient has been admitted to [facility], where she will finish off her antibiotic azithromycin and dexamethasone, taking these both daily for an additional five days. Her O2 saturation will be monitored; right now, she is at 94%-95% on room air. Physical Therapy and Occupational Therapy will work with her to try to improve her functional capability. We will encourage her to eat. The patient will need to remain in isolation for a minimum of 10 days from the date of the positive test for COVID, which was 01/19. 2. Code status, DNR. See orders. Job ID: [id number] MTDD
[2020-01-27 06:04] LABS: #Basophils 0.2 thou/uL (0.0-0.2); #Lymphocytes 0.8 thou/uL (1.20-3.40); #Neutrophils 12.9 thou/uL (1.40-6.50); %Basophils 1.1 % (0.0-1.0); %Eosinophils 0.1 % (0.0-10.0); %Lymphocytes 5.4 % (21.0-51.0); %Monocytes 6.7 % (0.0-10.0); %Neutrophils 86.7 % (42.0-75.0); Hemoglobin 14.8 g/dL (12.0-16.0); Mean Corpuscular HGB CONC 34.5 g/dL (32.0-36.0); Mean Corpuscular Hemoglobin 31.6 pg (27.0-31.0); Mean Corpuscular Volume 91.5 fL (78.0-98.0); Mean Platelet Volume 6.2 fL (7.4-10.4); Platelet Count 374 thou/uL (130-400); RBC Distribution Width 10.6 % (11.5-14.5); Red Blood Cell (RBC) Count 4.68 mill/uL (4.20-5.40); White Blood Cell (WBC) Count 14.9 thou/uL (4.8-10.8)
[2020-01-27] MEDS: hydrALAZINE 25 MG TAB PO SCH ×4 (07:47→20:35)
--- NOTE | 2020-01-27 08:43 | PRG ---
DATE OF SERVICE: 01/27/2020 SUBJECTIVE: The patient is sitting up in a bedside chair. Occupational Therapy is working with her. She said she does not feel very good. She said she did not sleep very much last night. OBJECTIVE: GENERAL: The patient looks much better, is awake and talkative and appears in no distress. VITAL SIGNS: Her temperature is 98.4, pulse 75, blood pressure 134/75, respirations 18, O2 saturation 94% on room air. LUNGS: The patient has some minimal rales at the right posterior base, otherwise chest clear. HEART: Regular rate. LABORATORY DATA: H and H are 14.8 and 42.8, white cell count 14,900 with 87% segs, 5% lymphocytes, and a platelet count of 374. Sodium 133, potassium 3.7, BUN 28, creatinine 0.78, glucose is 94, albumin is 3.6. ASSESSMENT: 1. Severe generalized weakness. a. Following hospitalization with COVID pneumonia. 2. COVID pneumonia. a. Required hospitalization from 01/20 to 01/25 at [facility]. b. Rapid COVID test positive on 01/19. c. Treated with IV azithromycin, ceftriaxone, dexamethasone, and supplemental O2. d. Improving, receiving oral antibiotics and steroids as of 01/26. 3. COVID infection. a. COVID pneumonia improving. b. Complicated by severe weakness and deconditioning and marked decline in functional capability. c. Complicated by probable COVID encephalopathy with increased confusion that is improving as of 01/26. 4. Chronic atrial fibrillation. a. Rate control. b. On chronic anticoagulant with Eliquis. 5. Hypertension. 6. Status post pacemaker placement for bradycardia. 7. History of breast cancer. a. Status post right mastectomy in 2009. b. No evidence of recurrence. 8. History of weakness. a. Prior to this acute illness, the patient lived at home and had assistance with her ADLs and ambulated short distances with a walker. 9. Code status DNR. PLAN: The patient looks better today. We will continue present care. Continue PT and OT. Job ID: [id number] MTDD
[2020-01-27] MEDS: Zinc Sulfate 220 MG CAP PO SCH (08:51)
[2020-01-27] MEDS: Apixaban 5 MG TAB PO SCH ×2 (08:51→20:35)
[2020-01-27] MEDS: Dexamethasone 4 MG TAB PO SCH (08:51)
[2020-01-27] MEDS: Carvedilol 6.25 MG TAB PO SCH ×3 (08:52→16:20)
[2020-01-27] MEDS: Azithromycin 250 MG TAB PO SCH (08:52)
[2020-01-27] MEDS ORDERED: Bisacodyl 10 MG SUPP PR PRN (14:29)
[2020-01-27] MEDS ORDERED: Polyethylene Glycol 3350 17 GM Packet PO SCH (14:30)
[2020-01-27] MEDS: Ondansetron ODT 4 MG TAB PO PRN (15:10)
[2020-01-27] MEDS: Rosuvastatin 10 MG TAB PO SCH (20:36)
[2020-01-28] MEDS: Acetaminophen 325 MG TAB PO PRN ×3 (03:50→17:06)
[2020-01-28] MEDS: Polyethylene Glycol 3350 17 GM Packet PO SCH (08:37)
[2020-01-28] MEDS: Apixaban 5 MG TAB PO SCH ×2 (08:38→20:01)
[2020-01-28] MEDS: Zinc Sulfate 220 MG CAP PO SCH (08:38)
[2020-01-28] MEDS: Dexamethasone 4 MG TAB PO SCH (08:38)
[2020-01-28] MEDS: Carvedilol 6.25 MG TAB PO SCH ×2 (08:38→17:05)
[2020-01-28] MEDS: hydrALAZINE 25 MG TAB PO SCH ×3 (08:38→20:03)
[2020-01-28] MEDS: Azithromycin 250 MG TAB PO SCH (08:38)
[2020-01-28] MEDS: Ondansetron ODT 4 MG TAB PO PRN ×2 (12:14→20:09)
[2020-01-28] MEDS: Rosuvastatin 10 MG TAB PO SCH (20:00)
[2020-01-29] MEDS: Ondansetron ODT 4 MG TAB PO PRN (02:49)
[2020-01-29] MEDS: Acetaminophen 325 MG TAB PO PRN ×2 (04:25→09:00)
--- NOTE | 2020-01-29 06:30 | PRG ---
DATE OF SERVICE: 01/28/2020 SUBJECTIVE: The patient said she just feels mixed up, not sure what all has happened to her. She said she did not rest very well last night. She did recognize me and call me by name. OBJECTIVE: GENERAL: The patient is alert and talkative. She does not appear in any acute distress. VITAL SIGNS: Her temperature is 97.7, pulse 60, respirations 18, O2 saturation 95% on room air, blood pressure 134/75. LUNGS: There are good breath sounds. There are some early minimal rales at the right posterior base, otherwise clear. HEART: Regular rate. EXTREMITIES: No edema. ASSESSMENT: 1. Severe generalized weakness. a. Following the hospitalization with COVID pneumonia. 2. COVID pneumonia. a. Required hospitalization from 01/20 to 01/25 at [facility]. Rapid COVID test positive on 01/19. b. Treated with IV azithromycin, ceftriaxone, dexamethasone, and required supplemental O2. c. Improving, completing 5 days of oral antibiotics and steroids as of 01/27. 3. COVID infection. a. COVID pneumonia, improving. b. Complicated by severe weakness and deconditioning and marked decline in functional capabilities. c. Complicated by COVID encephalopathy with increased confusion, that is improving as of 01/27. 4. Chronic atrial fibrillation. a. Rate control. b. On chronic anticoagulant with Eliquis. 5. Hypertension. 6. Status post pacemaker placement for bradycardia. 7. History of breast cancer. a. Status post right mastectomy in 2009. b. No evidence of recurrence. 8. History of weakness. a. Prior to acute illness, the patient lived at home and had assistance with her ADLs and ambulated short distance with walker. 9. Code status: DNR. PLAN: We will continue present care. We will continue the isolation for a minimum of 10 days and 24 hours of no fever and feeling better, which tentatively will be 01/30. Continue PT and OT. Complete the 5-day course of antibiotics and dexamethasone. Job ID: [id number] [facility]
[2020-01-29] MEDS: Polyethylene Glycol 3350 17 GM Packet PO SCH (08:30)
[2020-01-29] MEDS: Zinc Sulfate 220 MG CAP PO SCH (08:30)
[2020-01-29] MEDS: Azithromycin 250 MG TAB PO SCH (08:30)
[2020-01-29] MEDS: hydrALAZINE 25 MG TAB PO SCH ×3 (08:31→21:33)
[2020-01-29] MEDS: Dexamethasone 4 MG TAB PO SCH (08:31)
[2020-01-29] MEDS: Carvedilol 6.25 MG TAB PO SCH ×2 (08:31→16:56)
[2020-01-29] MEDS: Apixaban 5 MG TAB PO SCH ×2 (08:31→21:33)
[2020-01-29] MEDS: Lorazepam 0.5 MG TAB PO PRN (16:56)
[2020-01-29] MEDS: Mirtazapine 15 MG TAB PO SCH (21:34)
[2020-01-29] MEDS: Rosuvastatin 10 MG TAB PO SCH (21:34)
[2020-01-30] MEDS: Mirtazapine 15 MG TAB PO SCH ×2 (01:25→21:07)
--- NOTE | 2020-01-30 03:53 | PRG ---
DATE OF SERVICE: 01/29/2020 SUBJECTIVE: The patient said she had a restless night. Nurses report that she often times will holler out for someone and she is still confused. She is not eating very much. She sleeps more in the daytime. OBJECTIVE: GENERAL: This morning, the patient is lying in bed. The nurses are getting ready to bathe her. She is awake, recognizes me, and asked me how my Thanks holiday was yesterday. She seems pleasant and in no distress, but very weak. She has not eaten any of her breakfast. VITAL SIGNS: Shows a temperature of 98.9, pulse 68, respirations 18, O2 saturation 94% on room air, and blood pressure 146/79. LUNGS: Clear. There are some minimal rales at the right posterior base. HEART: Regular rate. EXTREMITIES: No edema. ASSESSMENT: 1. Severe generalized weakness. a. Following the hospitalization with COVID pneumonia. b. Very slow progress. 2. COVID pneumonia. a. Required hospitalization from 01/20 through 01/25 at [facility]. Rapid COVID test positive on 01/19. b. Treated with IV azithromycin, ceftriaxone, dexamethasone, and required supplemental O2. c. Improving, completing 5 days of oral antibiotics and dexamethasone as of 01/28. 3. COVID infection. a. COVID pneumonia improving. b. Complicated by severe weakness, deconditioning, and marked decline in functional capabilities. c. Complicated by COVID encephalopathy with increased confusion and periods of agitation that is slowly improving as of 01/28. 4. Chronic atrial fibrillation. a. Rate control. b. On chronic anticoagulant with Eliquis. 5. Hypertension, controlled. 6. Status post pacemaker for bradycardia. 7. History of breast cancer. a. Status post right mastectomy in 2009. b. No evidence of recurrence. 8. History of weakness. a. Prior to acute illness the patient lived at home and had help for assistance with her ADLs and was ambulatory with a walker for short distances. 9. Code status, DNR. PLAN: The patient is making very slow improvement, still weak and not eating very well. We will continue PT and OT. Hopefully with time, we will see continued improvement with the increased confusion. Once she is out of her isolation, where she can have contact with her family or caregivers this will probably help too. She still lacks a few days on her azithromycin and her dexamethasone. We will try the patient on mirtazapine at bedtime, see if this will help her rest a little bit, help stimulate her appetite. Job ID: [id number] DI
[2020-01-30] MEDS: Azithromycin 250 MG TAB PO SCH (08:08)
[2020-01-30] MEDS: Lorazepam 0.5 MG TAB PO PRN (08:08)
[2020-01-30] MEDS: Zinc Sulfate 220 MG CAP PO SCH (08:08)
[2020-01-30] MEDS: Polyethylene Glycol 3350 17 GM Packet PO SCH (08:08)
[2020-01-30] MEDS: Apixaban 5 MG TAB PO SCH ×2 (08:09→21:05)
[2020-01-30] MEDS: Dexamethasone 4 MG TAB PO SCH (08:09)
[2020-01-30] MEDS: Carvedilol 6.25 MG TAB PO SCH ×2 (08:09→17:12)
[2020-01-30] MEDS: hydrALAZINE 25 MG TAB PO SCH ×3 (08:49→21:07)
[2020-01-30] MEDS: Acetaminophen 325 MG TAB PO PRN (15:19)
[2020-01-30] MEDS: Rosuvastatin 10 MG TAB PO SCH (21:08)
[2020-01-31] MEDS: Acetaminophen 325 MG TAB PO PRN ×2 (02:41→10:49)
[2020-01-31] MEDS: Lorazepam 0.5 MG TAB PO PRN ×2 (02:42→10:49)
[2020-01-31] MEDS: Dexamethasone 4 MG TAB PO SCH (08:20)
[2020-01-31] MEDS: Carvedilol 6.25 MG TAB PO SCH ×2 (08:20→17:14)
[2020-01-31] MEDS: hydrALAZINE 25 MG TAB PO SCH ×4 (08:21→21:03)
[2020-01-31] MEDS: Apixaban 5 MG TAB PO SCH ×2 (08:21→21:03)
[2020-01-31] MEDS: Polyethylene Glycol 3350 17 GM Packet PO SCH (08:21)
[2020-01-31] MEDS: Zinc Sulfate 220 MG CAP PO SCH (08:21)
[2020-01-31] MEDS: Azithromycin 250 MG TAB PO SCH (08:21)
--- NOTE | 2020-01-31 13:04 | PRG ---
DATE OF SERVICE: 01/30/2020 SUBJECTIVE: The patient says she is doing okay this morning, but did not rest last night. Yesterday, she had gotten very anxious and was hollering and just could not hardly be redirected. Eventually, she settled, but she also received lorazepam 0.5 mg that seemed to help her. The patient said she took the medicine yesterday and it did seem to help her. She still has the confusion. Her son-in-law spoke with the nurse yesterday and indicated that she has been having some decline in her memory and having increasing episodes of confusion and weakness and has not been eating very well. This was all occurring prior to the COVID infection. He said they are considering maybe placement in a shelter because of the difficulty managing her at home. OBJECTIVE: GENERAL: This morning, the patient is sitting up in bed. She has not eaten much of her breakfast. She is awake and talkative, recognized me and told me the medicine she took yesterday really seemed to calm her down. She does not appear in any distress. VITAL SIGNS: This morning, her temp is 97.0, pulse is 70, respirations are 16, O2 saturation 94% on room air, blood pressure 136/73. LUNGS: The patient has minimal rales at the bases, otherwise are clear. HEART: Regular rate. EXTREMITIES: No edema. ASSESSMENT: 1. Severe generalized weakness. a. Following hospitalization with COVID pneumonia. b. Very slow progress as of 01/30/2020. 2. COVID pneumonia. a. Required hospitalization from 01/20 through 01/25, at [facility]. Rapid COVID test positive on 01/19. b. Treated with IV azithromycin, ceftriaxone, and dexamethasone and required supplemental O2. c. Improving, completing 5-day course of oral antibiotics, dexamethasone today, 01/29. 3. COVID infection. a. COVID pneumonia improving. b. Complicated by severe weakness, deconditioning, marked decline in functional capabilities. c. Complicated by COVID encephalopathy with increased confusion, periods of agitation, that required the addition of lorazepam on a p.r.n. basis as of 01/29. 4. Chronic atrial fibrillation. a. Rate control. b. On chronic anticoagulation with Eliquis. 5. Hypertension, controlled. 6. Status post pacemaker for bradycardia. 7. History of breast cancer. a. Status post right mastectomy in 2009. b. No evidence of recurrence. 8. History of weakness. a. Prior to acute illness, the patient lived at home and required assistance with her ADLs and ambulated short distance with a walker. 9. Dementia. a. Developing increasing forgetfulness and confusion and decline in her eating prior to this acute illness. 10. Code status, DNR. PLAN: We will continue present care, continue PT and OT. The patient will complete her azithromycin and dexamethasone today. This will be her 10th full day of isolation. Beginning tomorrow, we will stop the isolation. This will allow visit from her family, which I think will help her also with some of the agitation and orientation. Job ID: [id number] MTDD
[2020-01-31] MEDS: Mirtazapine 15 MG TAB PO SCH (21:02)
[2020-01-31] MEDS: Rosuvastatin 10 MG TAB PO SCH (21:02)
[2020-02-01] MEDS: Acetaminophen 325 MG TAB PO PRN ×3 (00:32→22:14)
[2020-02-01] MEDS: Lorazepam 0.5 MG TAB PO PRN (00:33)
[2020-02-01] MEDS: hydrALAZINE 25 MG TAB PO SCH ×3 (08:14→20:31)
[2020-02-01] MEDS: Azithromycin 250 MG TAB PO SCH (08:14)
[2020-02-01] MEDS: Carvedilol 6.25 MG TAB PO SCH ×2 (08:14→16:26)
[2020-02-01] MEDS: Polyethylene Glycol 3350 17 GM Packet PO SCH (08:14)
[2020-02-01] MEDS: Apixaban 5 MG TAB PO SCH ×2 (08:14→20:30)
[2020-02-01] MEDS: Dexamethasone 4 MG TAB PO SCH (08:14)
[2020-02-01] MEDS: Zinc Sulfate 220 MG CAP PO SCH (08:14)
--- NOTE | 2020-02-01 09:01 | PRG ---
DATE OF SERVICE: 02/01/2020 SUBJECTIVE: The patient said that she is not feeling good this morning and did not rest. Nurses said though that she did sleep. Last night late, she received 0.5 mg of lorazepam and she seemed to settle down and rest fine. This morning, she said she just feels so bad, she feels like she is going to , could not be any more specific about what was bothering her, just tired. OBJECTIVE: GENERAL: The patient is awake, alert. She is being changed from her wet brief. She does not appear in any acute distress, very hard of hearing. VITAL SIGNS: Her temp is 97.2, pulse 60, respirations 18, O2 saturation 94% on room air, and blood pressure 147/75. LUNGS: Clear. HEART: Regular rate. EXTREMITIES: No edema. ASSESSMENT: 1. Severe generalized weakness. a. Following hospitalization with COVID pneumonia. b. Very slow progress as of 01/31. 2. COVID pneumonia. a. Required hospitalization from 01/20 to 01/[address] [facility]. Rapid COVID test positive on 01/19. b. Treated with IV azithromycin, ceftriaxone, dexamethasone, and required supplemental O2. c. Improving. Completed five-day course of IV antibiotics and dexamethasone on 01/29. 3. COVID infection. a. COVID pneumonia, resolving as of 01/31. b. Complicated by severe weakness, deconditioning, marked decline in functional capabilities. c. Complicated by COVID encephalopathy with increased confusion, periods of agitation that have required lorazepam on a p.r.n. basis, very slowly improving as of 01/31. d. Completed 10-day isolation period on 01/29. 4. Chronic atrial fibrillation. a. Rate control. b. On chronic anticoagulation with Eliquis. 5. Hypertension, controlled. 6. Status post pacemaker for bradycardia. 7. History of breast cancer. a. Status post right mastectomy in 2009. b. No evidence of recurrence. 8. History of weakness. a. Prior to acute illness, the patient lived at home, but required assistance with her ADLs. 9. Dementia. a. The patient was developing increasing forgetfulness, confusion, decline in her eating prior to this acute illness. 10. Code status DNR. PLAN: Encourage the patient. PT and OT will continue to work with her. Continue encouragement of food and liquids. Job ID: [id number] [facility]
[2020-02-01] MEDS: Rosuvastatin 10 MG TAB PO SCH (20:26)
[2020-02-01] MEDS: Mirtazapine 15 MG TAB PO SCH (20:31)
[2020-02-02] MEDS: Lorazepam 0.5 MG TAB PO PRN (03:03)
[2020-02-02 06:00] LABS: ALT (SGPT) 29 U/L (8-55); AST (SGOT) 20 U/L (5-34); Albumin 3.5 g/dL (3.4-4.8); Alkaline Phosphatase 54 U/L (40-110); Anion Gap 16 mmol/L (10-20); BUN (Urea Nitrogen) 26 mg/dL (9.8-20.1); Bilirubin, Total 0.9 mg/dL (0.2-1.2); Calc. Creatinine Clearance 45 mL/min (70-130); Calcium 9.2 mg/dL (7.8-10.44); Carbon Dioxide 26 mmol/L (23-31); Chloride 93 mmol/L (98-107); Globulin 3.2 g/dL (2.4-3.5); Glucose 96 mg/dL (83-110); Potassium 4.7 mmol/L (3.5-5.1); Protein, Total 6.7 g/dL (6.0-8.3); Sodium 130 mmol/L (136-145)
[2020-02-02 06:06] LABS: Hemoglobin 14.4 g/dL (12.0-16.0); Mean Corpuscular HGB CONC 34.5 g/dL (32.0-36.0); Mean Corpuscular Hemoglobin 32.5 pg (27.0-31.0); Mean Corpuscular Volume 94.1 fL (78.0-98.0); Mean Platelet Volume 7.2 fL (7.4-10.4); Platelet Count 289 thou/uL (130-400); RBC Distribution Width 11.6 % (11.5-14.5); Red Blood Cell (RBC) Count 4.43 mill/uL (4.20-5.40); White Blood Cell (WBC) Count 20.6 thou/uL (4.8-10.8)
[2020-02-02 06:21] LABS: Lymphocytes 5 % (21-51); MDiff Complete? YES; Monocytes 4 % (0-10); Neutrophil 91 % (42-75); Platelet Morphology Comment Appears Adequate; RBC Morphology Normal
[2020-02-02] MEDS: Polyethylene Glycol 3350 17 GM Packet PO SCH (08:18)
[2020-02-02] MEDS: Zinc Sulfate 220 MG CAP PO SCH (08:19)
[2020-02-02] MEDS: Carvedilol 6.25 MG TAB PO SCH ×2 (08:19→17:02)
[2020-02-02] MEDS: Acetaminophen 325 MG TAB PO PRN (08:19)
[2020-02-02] MEDS: hydrALAZINE 25 MG TAB PO SCH ×3 (08:19→20:28)
[2020-02-02] MEDS: Apixaban 5 MG TAB PO SCH ×2 (08:19→20:27)
[2020-02-02] MEDS: Dexamethasone 4 MG TAB PO SCH (08:20)
--- NOTE | 2020-02-02 09:18 | PRG ---
DATE OF SERVICE: 02/02/2020 SUBJECTIVE: The patient is up sitting in a chair and is eating a few bites of her breakfast. She looks better. She recognized me and called me by name correctly. She wondered what she is doing here and how she got here, does not really have any understanding of what has happened to her. OBJECTIVE: GENERAL: The patient looks better. She appears in no distress. VITAL SIGNS: Show a temperature of 97.4, pulse 69, respirations 16, O2 saturation 94% on room air, and blood pressure 110/68 last evening; morning vitals pending. LUNGS: Clear. HEART: Regular rate. ASSESSMENT: 1. Severe generalized weakness. a. Following hospitalization with COVID pneumonia. b. Gradual improvement as of 02/01. 2. COVID pneumonia. a. Required hospitalization from 01/20 to 01/25 at [facility]. Rapid COVID test positive on 01/19. b. Treated with IV azithromycin, ceftriaxone, and dexamethasone and required supplemental O2. c. Clinically resolving. Completed the additional five days of p.o. antibiotics and dexamethasone on 01/29. 3. COVID infection. a. COVID pneumonia, resolving as of 01/31. b. Complicated by severe weakness, deconditioning, marked decline in functional capabilities. c. Complicated by COVID encephalopathy with increased confusion, periods of agitation that is improving as of 02/01. d. Completed 10-day isolation period on 01/29. 4. Chronic atrial fibrillation. a. Rate control. b. On chronic anticoagulant with Eliquis. 5. Hypertension, controlled. 6. Status post pacemaker for bradycardia. 7. History of breast cancer. a. Status post right mastectomy in 2009. b. No evidence of recurrence. 8. History of weakness. a. Prior to acute illness, the patient lived at home and required assistance with her ADLs. 9. Dementia. 10. Code status, DNR. PLAN: The patient looks better today. Her strength looks a little better. She is eating a little bit. We will continue to encourage the patient. Continue PT and OT. Job ID: [id number] MTDD
[2020-02-02] MEDS: Ondansetron ODT 4 MG TAB PO PRN (12:10)
[2020-02-02] MEDS: Mirtazapine 15 MG TAB PO SCH (20:30)
[2020-02-02] MEDS: Rosuvastatin 10 MG TAB PO SCH (20:32)
[2020-02-03] MEDS: Ondansetron ODT 4 MG TAB PO PRN (03:42)
[2020-02-03] MEDS: Apixaban 5 MG TAB PO SCH ×2 (08:51→20:22)
[2020-02-03] MEDS: hydrALAZINE 25 MG TAB PO SCH ×3 (08:51→20:23)
[2020-02-03] MEDS: Polyethylene Glycol 3350 17 GM Packet PO SCH (08:51)
[2020-02-03] MEDS: Zinc Sulfate 220 MG CAP PO SCH (08:52)
[2020-02-03] MEDS: Carvedilol 6.25 MG TAB PO SCH ×2 (08:52→17:53)
--- NOTE | 2020-02-03 08:58 | PRG ---
DATE OF SERVICE: 02/03/2020 SUBJECTIVE: Yesterday, the patient was up in her chair. She looks better up in the chair. She is not eating very much. Nurses have to encourage her and usually help her until they can get her to eat a few bites. She does talk to the nurse a lot, just says she prays and hopes to . This morning, she was sitting up in bed, seems to be more interactive and actually looked a little better and a little stronger. She did as usual, say she had a bad night. OBJECTIVE: GENERAL: The patient's temperature is 98.2; pulse 60; respirations 18; O2 saturation on room air was 92% last night, 91% this morning; and blood pressure 116/73. LUNGS: Clear except for some minimal posterior basilar rales. HEART: Regular rate. EXTREMITIES: No edema. ASSESSMENT: 1. Severe generalized weakness. a. Following a hospitalization with COVID pneumonia. b. Very slow, gradual improvement as of 02/02, but complicated by her dementia and encephalopathy and depression. 2. COVID pneumonia. a. Required hospitalization from 01/20 to 01/25 at [facility], rapid COVID test positive on 01/19. b. Treated with IV azithromycin, ceftriaxone, dexamethasone, and required supplemental O2. c. Clinically resolved. Completed additional five days of p.o. antibiotics and dexamethasone on 01/29. 3. COVID infection. a. COVID pneumonia resolving as of 01/31. b. Complicated by severe weakness, deconditioning, marked decline in functional capability, complicated by COVID encephalopathy with increased confusion, periods of agitation that has improved a little as of 02/02. c. Completed 10-day isolation period on 01/29. 4. Chronic atrial fibrillation. a. Rate controlled. b. On chronic anticoagulation with Eliquis. 5. Hypertension, controlled. 6. Status post pacemaker for bradycardia. 7. History of breast cancer. a. Status post right mastectomy in 2009. b. No evidence of recurrence. 8. History of weakness. a. Prior to acute illness, the patient lived at home and had assistance for all her ADLs. 9. Dementia. 10. Code status, DNR. 11. Depression. PLAN: The patient looks a little better and seems a little more interactive, but is battling depression and encephalopathy with an underlying dementia. She is not eating very well. I have started her on mirtazapine and hopefully, this will assist her. We will continue encouragement. Continue PT and OT. Job ID: [id number] DI
[2020-02-03] MEDS: Mirtazapine 15 MG TAB PO SCH (20:23)
[2020-02-03] MEDS: Rosuvastatin 10 MG TAB PO SCH (20:25)
[2020-02-04] MEDS: Ondansetron ODT 4 MG TAB PO PRN (03:57)
[2020-02-04] MEDS: Apixaban 5 MG TAB PO SCH ×2 (08:17→20:58)
[2020-02-04] MEDS: Polyethylene Glycol 3350 17 GM Packet PO SCH (08:17)
[2020-02-04] MEDS: hydrALAZINE 25 MG TAB PO SCH ×3 (08:17→21:08)
[2020-02-04] MEDS: Carvedilol 6.25 MG TAB PO SCH ×2 (08:17→17:26)
[2020-02-04] MEDS: Zinc Sulfate 220 MG CAP PO SCH (08:18)
--- NOTE | 2020-02-04 09:09 | PRG ---
DATE OF SERVICE: 02/04/2020 SUBJECTIVE: The patient is sitting on the side of the bed. The physical therapist is working to get her up into the chair. She is awake, very hard of hearing. Therapist said that she sat up in chair for about 2 hours and was able to just walk between the chair and the bed with assistance. She did have a visitor of a family member yesterday, but she does not remember this. She still takes lots of coaxing and encouragement to eat. OBJECTIVE: GENERAL: The patient looks depressed. She is sitting on the side of the bed. She does recognize me. She is not in any acute distress, but has very sad affect. VITAL SIGNS: Her temperature is 98.7, her pulse is 69, respirations 18, O2 saturation 93% on room air, and blood pressure 123/72. LUNGS: Clear. HEART: Regular rate. ASSESSMENT: 1. Severe generalized weakness. a. Following the hospitalization with COVID pneumonia. b. Very slow improvement as of 02/03. She is sitting up in a chair a little longer and taking just a few little short steps. 2. COVID pneumonia. a. Required hospitalization from 02/19 to 02/24 at [facility]. Rapid COVID test positive on 01/19. b. Treated with IV azithromycin, ceftriaxone, dexamethasone, and required supplemental O2. c. Clinically resolved. Completed additional five days of p.o. antibiotics and dexamethasone as of 01/29. 3. COVID infection. a. COVID pneumonia, resolved as of 01/31. b. Complicated by severe weakness, deconditioning, marked decline in functional capabilities. Complicated by COVID encephalopathy with increased confusion and periods of agitation that has improved a little as of 02/03. c. Completed 10-day isolation period as of 01/29. 4. Chronic atrial fibrillation. a. On chronic anticoagulant with Eliquis. b. Rate controlled. 5. Hypertension, controlled. 6. Status post pacemaker for bradycardia. 7. History of breast cancer. a. Status post mastectomy in 2009. b. No evidence of recurrence. 8. History of weakness. a. Prior to acute illness, the patient lived at home, but required assistance with her ADLs. 9. Dementia. 10. Depression. 11. Code status, DNR. PLAN: Continue encouragement. Continue PT and OT. I will increase mirtazapine to 30 mg to try to help with her appetite and also with depression. Job ID: [id number] MTDD
[2020-02-04] MEDS: Rosuvastatin 10 MG TAB PO SCH (20:57)
[2020-02-04] MEDS: Mirtazapine 15 MG TAB PO SCH (20:57)
[2020-02-05] MEDS: Acetaminophen 325 MG TAB PO PRN ×2 (06:18→20:56)
[2020-02-05] MEDS: Polyethylene Glycol 3350 17 GM Packet PO SCH (08:39)
[2020-02-05] MEDS: Apixaban 5 MG TAB PO SCH ×2 (08:40→20:59)
[2020-02-05] MEDS: hydrALAZINE 25 MG TAB PO SCH (08:40)
[2020-02-05] MEDS: Zinc Sulfate 220 MG CAP PO SCH (08:40)
[2020-02-05] MEDS: Carvedilol 6.25 MG TAB PO SCH ×2 (08:41→18:29)
[2020-02-05] MEDS ORDERED: hydrALAZINE 25 MG TAB PO SCH (09:00)
[2020-02-05] MEDS: hydrALAZINE 10 MG TAB PO SCH ×2 (11:28→20:58)
[2020-02-05] MEDS: Rosuvastatin 10 MG TAB PO SCH (20:57)
[2020-02-05] MEDS: Mirtazapine 15 MG TAB PO SCH (20:57)
[2020-02-06] MEDS: Acetaminophen 325 MG TAB PO PRN ×2 (04:03→21:49)
--- NOTE | 2020-02-06 05:19 | PRG ---
DATE OF SERVICE: 02/05/2020 SUBJECTIVE: The patient said that she did not do too well last night. This morning, she was not complaining as much. She is sitting up in her bed and she is eating some breakfast. She actually looks a little better and a little stronger. She is talking a little more. Nurses said that her blood pressure at times has been a little low and on several occasions and they have held her hydralazine. Her pulses have been in the 60s. OBJECTIVE: GENERAL: The patient is sitting up in bed. She is alert and talkative, although she is very hard of hearing. She does look better and she has eaten some of her breakfast. VITAL SIGNS: This morning shows temperature 97.6, pulse 60, respirations 16, O2 saturation 97% on room air, blood pressure 110/66. LUNGS: Clear. HEART: Regular rate. ASSESSMENT: 1. Severe generalized weakness. a. Following hospitalization for COVID pneumonia. b. Very slow improvement as of 02/04, eating a little better, tolerating sitting up in a chair for a little longer as of 02/04. 2. COVID pneumonia. a. Required hospitalization from 01/20 to 01/25 at [facility]. Rapid COVID test positive on 01/19. b. Treated with IV azithromycin, ceftriaxone, dexamethasone, and required supplemental O2. c. Clinically resolved. Completed 5 days of additional p.o. antibiotics and dexamethasone on 01/29. 3. COVID infection. a. COVID pneumonia resolved as of 01/31. b. Complicated by severe weakness, deconditioning, marked decline in functional capabilities. Complicated by COVID encephalopathy with increased confusion. Some agitation, which is very slowly improving as of 02/04. c. Completed 10-day isolation as of 01/29. 4. Chronic atrial fibrillation. a. On chronic anticoagulant with Eliquis. b. Rate control. 5. Hypertension. a. A little too tightly controlled as of 02/04. 6. Status post pacemaker for bradycardia. 7. History of breast cancer. a. Status post mastectomy in 2009. b. No evidence of recurrence. 8. History of weakness. a. Prior to acute illness, the patient lived at home, but required assistance with her ADLs. 9. Dementia. 10. Depression. 11. Code status: DNR. PLAN: Patient does look a little better today. She looks a little stronger, is not complaining as much. We will continue present care. Continue PT and OT. We will reduce her hydralazine 25 mg t.i.d. to 10 mg b.i.d. and hold if systolic pressure less than 105. Job ID: [id number] MTDD
[2020-02-06] MEDS: Lorazepam 0.5 MG TAB PO PRN (08:06)
[2020-02-06] MEDS: Apixaban 5 MG TAB PO SCH ×2 (08:13→21:50)
[2020-02-06] MEDS: Zinc Sulfate 220 MG CAP PO SCH (08:13)
[2020-02-06] MEDS: Carvedilol 6.25 MG TAB PO SCH ×2 (08:13→17:30)
[2020-02-06] MEDS: hydrALAZINE 10 MG TAB PO SCH ×2 (08:14→21:48)
[2020-02-06] MEDS: Polyethylene Glycol 3350 17 GM Packet PO SCH (08:18)
[2020-02-06] MEDS: Mirtazapine 15 MG TAB PO SCH (21:49)
[2020-02-06] MEDS: Rosuvastatin 10 MG TAB PO SCH (21:49)
[2020-02-07] MEDS: Zinc Sulfate 220 MG CAP PO SCH (08:56)
[2020-02-07] MEDS: hydrALAZINE 10 MG TAB PO SCH ×2 (08:56→22:00)
[2020-02-07] MEDS: Carvedilol 6.25 MG TAB PO SCH ×2 (08:56→17:17)
[2020-02-07] MEDS: Apixaban 5 MG TAB PO SCH (08:57)
[2020-02-07] MEDS: Polyethylene Glycol 3350 17 GM Packet PO SCH (09:01)
--- NOTE | 2020-02-07 11:43 | PRG ---
DATE OF SERVICE: 02/07/2020 SUBJECTIVE: The patient is sitting up in a chair. She is eating her cereal. She looks much better, was more interactive. She did say she had a bad night, this is what she always tells me in the morning. OBJECTIVE: GENERAL: The patient looks stronger. She is much more interactive and appears in no distress. VITAL SIGNS: Her temperature is 97.6, pulse 87, respirations 18, O2 saturation 97% on room air, and blood pressure 157/89. LUNGS: Clear. HEART: Regular rate. EXTREMITIES: No edema. ASSESSMENT: 1. Severe generalized weakness. a. Following the hospitalization for COVID pneumonia. b. Gradual improvement as of 02/06. Eating better, tolerating sitting up in a chair for longer periods. 2. COVID pneumonia. a. Required hospitalization from 01/20 to 01/[address] [facility]. Rapid COVID test positive on 01/19. b. Treated with IV azithromycin, ceftriaxone, dexamethasone, and required supplemental O2. c. Clinically resolved. Completed the additional 5 days of oral antibiotics and dexamethasone on 01/29. 3. COVID infection. a. COVID pneumonia resolved as of 01/31. b. Complicated by severe weakness, deconditioning, marked decline in functional capabilities which are gradually improving. Also, complicated by COVID encephalopathy that is improving as of 02/06. c. Completed 10-day isolation on 01/29. 4. Chronic atrial fibrillation. a. On chronic anticoagulant with Eliquis. b. Rate controlled. 5. Hypertension. a. Controlled. 6. Status post pacemaker for bradycardia. 7. History of breast cancer. a. Status post mastectomy in 2009. b. No evidence of recurrence. 8. History of weakness. a. Prior to acute illness, the patient lived at home, but required assistance with her ADLs. 9. Dementia. 10. Depression, improving. 11. Code status, DNR. PLAN: For the last several days, the patient seems to be improving. We will continue present care. Continue PT and OT. Job ID: [id number] MTDD
[2020-02-07] MEDS: Mirtazapine 15 MG TAB PO SCH (21:59)
[2020-02-07] MEDS: Rosuvastatin 10 MG TAB PO SCH (21:59)
[2020-02-07] MEDS: Apixaban 2.5 MG TAB PO SCH (21:59)
[2020-02-07] MEDS: Acetaminophen 325 MG TAB PO PRN (22:02)
[2020-02-08] MEDS: Lorazepam 0.5 MG TAB PO PRN (03:11)
[2020-02-08] MEDS: Zinc Sulfate 220 MG CAP PO SCH (08:23)
[2020-02-08] MEDS: Apixaban 2.5 MG TAB PO SCH ×2 (08:23→20:17)
[2020-02-08] MEDS: Polyethylene Glycol 3350 17 GM Packet PO SCH (08:23)
[2020-02-08] MEDS: hydrALAZINE 10 MG TAB PO SCH ×2 (08:23→20:14)
[2020-02-08] MEDS: Carvedilol 6.25 MG TAB PO SCH ×2 (08:23→17:09)
--- NOTE | 2020-02-08 11:02 | PRG ---
DATE OF SERVICE: 02/08/2020 SUBJECTIVE: The patient says she is doing okay this morning, already up in a wheelchair, waiting on breakfast. OBJECTIVE: GENERAL: The patient is alert, talkative, appears better, stronger. VITAL SIGNS: Temperature 97.6 pulse 62, respirations 18, O2 saturation 99% on room air, blood pressure 143/79. LUNGS: Clear. HEART: Regular rate. MUSCULOSKELETAL: Severe generalized weakness following the hospitalization for COVID pneumonia, gradual improvement, patient working with physical therapy, takes moderate assistance with transfers. ASSESSMENT: 1. Severe generalized weakness. a. Following hospitalization for COVID pneumonia. b. Gradually improving as of 02/07. Eating better, tolerating sitting up in a chair for longer periods. 2. COVID pneumonia. a. Required hospitalization from 01/20 to 01/25 at [facility]. Rapid COVID test positive on 01/19. b. Treated with IV azithromycin, ceftriaxone, dexamethasone and required supplemental O2. c. Clinically resolved as of 01/29. 3. COVID infection. a. COVID pneumonia resolved. b. Complicated by severe weakness, deconditioning, marked decline in functional capabilities that is slowly improving. Also, complicated by COVID encephalopathy that is gradually improving as of 02/07. c. Completed 10-day isolation on 01/29. 4. Chronic atrial fibrillation. a. On chronic anticoagulant with Eliquis. b. Rate controlled. 5. Hypertension, controlled. 6. Status post pacemaker placement. 7. History of breast cancer. a. Status post mastectomy in 2009. b. No evidence of recurrence. 8. History of weakness. a. Prior to acute illness, patient lived at home, required assistance with ADLs. 9. Dementia. 10. Depression, improving. 11. Code status DNR. PLAN: The patient is making gradual improvement. We will continue present care. Continue PT and OT. Job ID: [id number] [facility]
[2020-02-08] MEDS: Rosuvastatin 10 MG TAB PO SCH (20:14)
[2020-02-08] MEDS: Mirtazapine 15 MG TAB PO SCH (20:14)
[2020-02-09] MEDS: Acetaminophen 325 MG TAB PO PRN ×2 (01:18→22:05)
[2020-02-09] MEDS: Lorazepam 0.5 MG TAB PO PRN (01:18)
[2020-02-09] MEDS: Zinc Sulfate 220 MG CAP PO SCH (08:50)
[2020-02-09] MEDS: hydrALAZINE 10 MG TAB PO SCH ×2 (08:50→22:04)
[2020-02-09] MEDS: Polyethylene Glycol 3350 17 GM Packet PO SCH (08:50)
[2020-02-09] MEDS: Carvedilol 6.25 MG TAB PO SCH ×2 (08:51→16:55)
[2020-02-09] MEDS: Apixaban 2.5 MG TAB PO SCH ×2 (08:51→22:04)
--- NOTE | 2020-02-09 09:40 | PRG ---
DATE OF SERVICE: 02/09/2020 SUBJECTIVE: This morning, the patient has been up sitting in her bedside chair. Occupational therapy said that she has walked in her room some, something she has not yet done, this was with assistance. Her caregiver from home, Jolene is with her this morning. The patient knew her and was very excited to see her. Said her son-in-law is considering her entering an assisted living or half-way upon her discharge, want to wait and see how she progresses. Jolene said that she will continue wherever she goes to come in and assist her. OBJECTIVE: GENERAL: The patient is sitting up in a chair, is alert and talkative, appears in no distress. VITAL SIGNS: Her temperature 97.5, pulse 60, respirations 14, O2 saturation 95% on room air, and blood pressure 112/73. LUNGS: Clear. HEART: Regular rate. EXTREMITIES: No edema. ASSESSMENT: 1. Severe generalized weakness. a. Following hospitalization for COVID pneumonia. b. Gradually improving as of 02/08. Walking in room some with assistance and eating better as of 02/08. 2. COVID pneumonia. a. Required hospitalization from 01/20 to 01/25 at [facility]. Rapid COVID test positive on 01/19. b. Treated with IV azithromycin, ceftriaxone, and dexamethasone, required supplemental O2. c. Resolved as of 01/29. 3. COVID infection. a. COVID pneumonia resolved. b. Complicated by severe weakness, deconditioning, marked decline in functional capabilities that is slowly improving. Also, complicated by COVID encephalopathy that is improving as of 02/08. c. Completed a 10-day period of isolation on 01/29. 4. Chronic atrial fibrillation. a. On chronic anticoagulation with Eliquis. b. Rate controlled. 5. Hypertension. 6. Status post pacemaker placement. 7. History of breast cancer. a. Status post mastectomy in 2009. b. No signs of recurrence. 8. Dementia. 9. Depression, improving. 10. Code status, DNR. PLAN: We will continue PT and OT, the visit with Jolene, her caregiver at home and we will see how she progresses and then the family can better plan where she will be best suited, whether in assisted living or half-way. Either way, Jolene will be there to assist her. We will repeat CBC since the last one had shown a leukocytosis with no signs of any infection or fever. Job ID: [id number] MTDD
[2020-02-09] MEDS: Rosuvastatin 10 MG TAB PO SCH (22:04)
[2020-02-09] MEDS: Mirtazapine 15 MG TAB PO SCH (22:04)
[2020-02-10 06:45] LABS: Anion Gap 14 mmol/L (10-20); BUN (Urea Nitrogen) 19 mg/dL (9.8-20.1); Calc. Creatinine Clearance 46 mL/min (70-130); Carbon Dioxide 27 mmol/L (23-31); Chloride 95 mmol/L (98-107); Glucose 97 mg/dL (83-110); Potassium 4.2 mmol/L (3.5-5.1)
[2020-02-10 07:08] LABS: Hemoglobin 11.4 g/dL (12.0-16.0); Mean Corpuscular HGB CONC 33.4 g/dL (32.0-36.0); Mean Corpuscular Hemoglobin 32.1 pg (27.0-31.0); Mean Corpuscular Volume 96.1 fL (78.0-98.0); Mean Platelet Volume 5.9 fL (7.4-10.4); Platelet Count 166 thou/uL (130-400); RBC Distribution Width 12.4 % (11.5-14.5); Red Blood Cell (RBC) Count 3.54 mill/uL (4.20-5.40); White Blood Cell (WBC) Count 5.4 thou/uL (4.8-10.8)
[2020-02-10 07:09] LABS: #Basophils 0.1 thou/uL (0.0-0.2); #Lymphocytes 0.6 thou/uL (1.20-3.40); #Monocytes 0.5 thou/uL (0.11-0.59); #Neutrophils 4.3 thou/uL (1.40-6.50); %Basophils 1.6 % (0.0-1.0); %Eosinophils 0.5 % (0.0-10.0); %Lymphocytes 11.1 % (21.0-51.0); %Monocytes 8.6 % (0.0-10.0); %Neutrophils 78.2 % (42.0-75.0)
[2020-02-10 07:11] LABS: Sodium 132 mmol/L (136-145)
[2020-02-10] MEDS: Apixaban 2.5 MG TAB PO SCH ×2 (08:51→21:28)
[2020-02-10] MEDS: Zinc Sulfate 220 MG CAP PO SCH (08:51)
[2020-02-10] MEDS: Carvedilol 6.25 MG TAB PO SCH ×2 (08:51→19:10)
[2020-02-10] MEDS: Polyethylene Glycol 3350 17 GM Packet PO SCH (08:51)
[2020-02-10] MEDS: hydrALAZINE 10 MG TAB PO SCH ×2 (08:51→21:27)
--- NOTE | 2020-02-10 09:53 | PRG ---
DATE OF SERVICE: 02/10/2020 SUBJECTIVE: The patient is up sitting in her bedside chair. She is alert and talkative. She seems much better. She did not complain of anything this morning, and her conversations are much better. She can recognize me correctly and identify me by name. OBJECTIVE: GENERAL: The patient looks better. She looks stronger. VITAL SIGNS: Show a temperature 97.4, pulse 80, respirations 20, O2 saturation 100%, blood pressure 148/92. LUNGS: Clear. HEART: Regular rate. LABORATORY DATA: Her H and H are 11.4 and 34, white cell count 5400 with 78% segs, 11% lymphocytes, and platelet count of 166. Sodium 132, potassium 4.2, BUN down to 19, creatinine 0.7, glucose 97. ASSESSMENT: 1. Severe generalized weakness. a. Following hospitalization for COVID pneumonia. b. Gradually improving as of 02/09, walking in the room with some assistance and eating much better as of 02/09. 2. COVID pneumonia. a. Required hospitalization from 01/20 to 01/[address] [facility]. Rapid COVID test positive on 01/19. b. Treated with IV azithromycin, ceftriaxone, and dexamethasone, and required supplemental O2. c. Resolved as of 01/29. 3. COVID infection. a. COVID pneumonia resolved. b. Complicated by severe weakness and deconditioning, and marked decline in functional capabilities that is gradually improving. c. Complicated by COVID encephalopathy that is much improved as of 02/09. d. Completed a 10-day period of isolation as of 01/29. 4. Chronic atrial fibrillation. a. On chronic anticoagulant with Eliquis. b. Rate control. 5. Hypertension, controlled. 6. Status post pacemaker placement. 7. History of breast cancer. a. Status post mastectomy 2009. b. No signs of recurrence. 8. Dementia. 9. Depression, improving. 10. Code status, DNR. PLAN: The patient continues to improve. We will continue PT and OT. Continue present medications. The patient's CBC showed that the leukocytosis had all resolved. Job ID: [id number] [facility]
[2020-02-10] MEDS: Acetaminophen 325 MG TAB PO PRN ×2 (11:44→21:28)
[2020-02-10] MEDS: Mirtazapine 15 MG TAB PO SCH (21:27)
[2020-02-10] MEDS: Rosuvastatin 10 MG TAB PO SCH (21:28)
[2020-02-11] MEDS: Zinc Sulfate 220 MG CAP PO SCH (08:28)
[2020-02-11] MEDS: Apixaban 2.5 MG TAB PO SCH ×2 (08:28→20:28)
[2020-02-11] MEDS: Polyethylene Glycol 3350 17 GM Packet PO SCH (08:28)
[2020-02-11] MEDS: Carvedilol 6.25 MG TAB PO SCH ×2 (08:29→17:02)
[2020-02-11] MEDS: hydrALAZINE 10 MG TAB PO SCH ×2 (08:29→20:28)
[2020-02-11] MEDS: Lorazepam 0.5 MG TAB PO PRN (08:32)
--- NOTE | 2020-02-11 09:26 | PRG ---
DATE OF SERVICE: 02/11/2020 SUBJECTIVE: The patient is up in a chair this morning working with Occupational Therapy. She is walking with help within her room. Her caregiver says at home she does not walk too much more than this. She can walk from her bedroom to the kitchen area. The patient still has episodes where she will call out and complain of multiple issues. The low dose of lorazepam does seem to help her with this. OBJECTIVE: GENERAL: This morning patient is sitting up in a bedside chair. She is smiling, alert, and said she had a terrible night, but she looks very comfortable, in no distress, she often will complain of this. VITAL SIGNS: Temperature 97.5, pulse 61, blood pressure 109/71, O2 saturation 96% on room air, respirations 13. LUNGS: Clear. HEART: Regular rate. ASSESSMENT: 1. Severe generalized weakness. a. Following hospitalization for COVID pneumonia. b. Gradually improving as of 02/09. Walking within her room with assistance as of 02/10. 2. COVID pneumonia. a. Required hospitalization from 01/20 to 01/[address] [facility]. Rapid COVID test positive on 01/19. b. Treated with IV azithromycin and ceftriaxone and dexamethasone and required supplemental O2. c. Resolved as of 01/29. 3. COVID infection. a. COVID pneumonia, resolved. b. Complicated by severe weakness and deconditioning and marked decline in her functional capabilities that is gradually improving. c. Complicated by COVID encephalopathy that is improving as of 02/10. d. Completed a 10 day period of isolation on 01/29. 4. Chronic atrial fibrillation. a. Rate controlled and on anticoagulant Eliquis. 5. Hypertension, controlled. 6. Status post pacemaker placement. 7. History of breast cancer. a. Status post right mastectomy 2009. b. No signs of recurrence. 8. Dementia. 9. Depression, improved. 10. Code status DNR. PLAN: The patient is gradually improving. Still has episodes where she is a little agitated but the lorazepam seems to be working well for this. We will continue PT and OT. Job ID: [id number] [facility]
[2020-02-11 12:35] VITALS: BMI 19.1
[2020-02-11] MEDS: Acetaminophen 325 MG TAB PO PRN (17:50)
[2020-02-11] MEDS: Rosuvastatin 10 MG TAB PO SCH (20:26)
[2020-02-11] MEDS: Mirtazapine 15 MG TAB PO SCH (20:27)
[2020-02-12] MEDS: hydrALAZINE 10 MG TAB PO SCH ×2 (08:19→20:50)
[2020-02-12] MEDS: Carvedilol 6.25 MG TAB PO SCH ×2 (08:20→16:49)
[2020-02-12] MEDS: Polyethylene Glycol 3350 17 GM Packet PO SCH (08:20)
[2020-02-12] MEDS: Zinc Sulfate 220 MG CAP PO SCH (08:20)
[2020-02-12] MEDS: Apixaban 2.5 MG TAB PO SCH ×2 (08:24→20:52)
--- NOTE | 2020-02-12 11:15 | PRG ---
DATE OF SERVICE: 02/12/2020 SUBJECTIVE: The patient is lying in bed with the head elevated. She has already been up this morning. She said she ate all her breakfast. She said she is feeling better. The patient is working with Physical Therapy and walking in her room. OBJECTIVE: GENERAL: The patient looks much better. She is very talkative, answers questions well. VITAL SIGNS: Show a temperature of 97.3, pulse 67, respirations 18, O2 saturation 98% on room air, her blood pressure 133/84. LUNGS: Clear. HEART: Regular rate. ASSESSMENT: 1. Severe generalized weakness. a. Following hospitalization for COVID pneumonia. b. Gradually improving as of 02/09. Walking within her room with assistance as of 02/11. 2. COVID pneumonia. a. Required hospitalization from 01/20 to 01/[address] [facility]. Rapid COVID test positive on 01/19. b. Treated with IV azithromycin, ceftriaxone, and dexamethasone and required supplemental O2. c. Resolved as of 01/29. 3. COVID infection. a. COVID pneumonia, resolved. b. Complicated by severe weakness, deconditioning, and decline in her functional capabilities, that continues to improve. c. Complicated by COVID encephalopathy that is improving as of 02/11. d. Completed a 10-day period of isolation on 01/29. 4. Chronic atrial fibrillation. a. Rate controlled and on anticoagulant, Eliquis. 5. Hypertension, controlled. 6. Status post pacemaker placement. 7. History of breast cancer. a. Status post right mastectomy in 2009. b. No signs or recurrence. 8. Dementia. 9. Depression, improved. 10. Code status, DNR. PLAN: The patient is improving. We will continue present management. Continue PT and OT. Job ID: [id number] [facility]
[2020-02-12] MEDS: Ondansetron ODT 4 MG TAB PO PRN (17:18)
[2020-02-12] MEDS: Rosuvastatin 10 MG TAB PO SCH (20:50)
[2020-02-12] MEDS: Mirtazapine 15 MG TAB PO SCH (20:52)
[2020-02-13] MEDS: Lorazepam 0.5 MG TAB PO PRN (06:17)
[2020-02-13] MEDS: hydrALAZINE 10 MG TAB PO SCH ×2 (09:05→20:44)
[2020-02-13] MEDS: Carvedilol 6.25 MG TAB PO SCH ×2 (09:05→17:11)
[2020-02-13] MEDS: Apixaban 2.5 MG TAB PO SCH ×2 (09:05→20:44)
[2020-02-13] MEDS: Polyethylene Glycol 3350 17 GM Packet PO SCH (09:05)
[2020-02-13] MEDS: Zinc Sulfate 220 MG CAP PO SCH (09:07)
[2020-02-13] MEDS: Mirtazapine 15 MG TAB PO SCH (20:42)
[2020-02-13] MEDS: Rosuvastatin 10 MG TAB PO SCH (20:43)
--- NOTE | 2020-02-14 05:05 | PRG ---
DATE OF SERVICE: 02/13/2020 SUBJECTIVE: The patient is doing very well. She is eating good. This morning, she had no complaint. OBJECTIVE: GENERAL: The patient is sitting up in bed, just having completed her breakfast. She is alert and talkative. Appears in no distress. VITAL SIGNS: Her temp is 97.6, pulse 63, respirations 18, O2 saturation 92% on room air, blood pressure 166/59. LUNGS: Clear. HEART: Regular rate. ASSESSMENT: 1. Severe generalized weakness. a. Following hospitalization for COVID pneumonia. b. Gradually improving as of 02/12. Walking within her room with assistance. 2. COVID pneumonia. a. Hospitalized from 01/20 to 01/25 at [facility]. Rapid COVID test positive on 01/19. b. Treated with IV azithromycin, ceftriaxone, and dexamethasone and required supplemental O2. c. Resolved as of 01/29. 3. COVID infection. a. COVID pneumonia resolved. b. Complicated by severe weakness, deconditioning, and decline in her functional capabilities that continue to improve. c. Complicated by COVID encephalopathy that is improving as of 02/12. d. Completed a 10-day period of isolation on 01/29. 4. Chronic atrial fibrillation. a. Rate controlled with anticoagulant, Eliquis. 5. Hypertension, controlled. 6. Status post pacemaker placement. 7. History of breast cancer. a. Status post right mastectomy in 2009. b. No signs or recurrence. 8. Dementia. 9. Depression, improved. 10. Code status, DNR. PLAN: The patient continues to make gradual progress. We will continue present care. Continue PT and OT. Job ID: [id number] [facility]
[2020-02-14] MEDS: Zinc Sulfate 220 MG CAP PO SCH (08:58)
[2020-02-14] MEDS: Polyethylene Glycol 3350 17 GM Packet PO SCH (08:58)
[2020-02-14] MEDS: Acetaminophen 325 MG TAB PO PRN ×2 (08:58→15:17)
[2020-02-14] MEDS: Carvedilol 6.25 MG TAB PO SCH ×2 (08:59→17:04)
[2020-02-14] MEDS: hydrALAZINE 10 MG TAB PO SCH ×2 (08:59→20:28)
[2020-02-14] MEDS: Apixaban 2.5 MG TAB PO SCH ×2 (08:59→20:20)
[2020-02-14] MEDS: Ondansetron ODT 4 MG TAB PO PRN (17:53)
[2020-02-14] MEDS: Rosuvastatin 10 MG TAB PO SCH (20:21)
[2020-02-14] MEDS: Mirtazapine 15 MG TAB PO SCH (20:23)
[2020-02-15] MEDS: Polyethylene Glycol 3350 17 GM Packet PO SCH (08:16)
[2020-02-15] MEDS: Zinc Sulfate 220 MG CAP PO SCH (08:16)
[2020-02-15] MEDS: Carvedilol 6.25 MG TAB PO SCH ×2 (08:16→17:18)
[2020-02-15] MEDS: hydrALAZINE 10 MG TAB PO SCH ×2 (08:16→20:45)
[2020-02-15] MEDS: Apixaban 2.5 MG TAB PO SCH ×2 (08:16→20:45)
[2020-02-15] MEDS: Acetaminophen 325 MG TAB PO PRN (08:18)
--- NOTE | 2020-02-15 08:34 | PRG ---
DATE OF SERVICE: 02/15/2020 SUBJECTIVE: The patient has been doing better. She is eating good. She is walking some in her room and a little in the hallway. OBJECTIVE: GENERAL: The patient is sitting up in a chair, visiting with her home caregiver, Jolene. She is alert, appears comfortable, in no distress. VITAL SIGNS: Show a temperature of 97.8, pulse 60, respirations 18, O2 saturation 95% on room air, blood pressure 105/60. LUNGS: Clear. HEART: Regular rate. ASSESSMENT: 1. Severe generalized weakness. a. Following hospitalization for COVID pneumonia. b. Improving. Walking a little in her room and in the hallway with assistance as of 02/14. 2. COVID pneumonia. a. Hospitalized from 01/20 to 01/25 at [facility]. Rapid COVID test positive on 01/19. b. Treated with IV azithromycin, ceftriaxone, and dexamethasone and required supplemental O2. c. Resolved as of 01/29. 3. COVID infection. a. COVID pneumonia resolved. b. Complicated by severe weakness, decondition, and decline in her functional capabilities, that all is improving. c. Complicated by COVID encephalopathy that is improving as of 02/14. d. Completed 10-day period of isolation on 01/29. 4. Chronic atrial fibrillation. a. On anticoagulant Eliquis and rate controlled. 5. Hypertension, controlled. 6. Status post pacemaker placement. 7. History of breast cancer. a. Status post right mastectomy in 2009. b. No signs of recurrence. 8. Dementia. 9. Depression, improved. 10. Code status, DNR. PLAN: The patient has improved. We will continue physical therapy and occupational therapy. Her functional capabilities are improving. Her walking is improving. I visited with her caregiver, Jolene. Her post-hospital care will require supervised living arrangement and someone to assist with her ADLs and instrumental ADLs. Jolene will visit with the family. She is very pleased with the improvement in her condition and they think that she probably can be managed either at home with a caregiver she had or in an assisted living. I agree with either of these plans. For now, we will continue PT and OT, which will only improve her general capabilities. Job ID: [id number] [facility]
[2020-02-15] MEDS: Mirtazapine 15 MG TAB PO SCH (20:45)
[2020-02-15] MEDS: Rosuvastatin 10 MG TAB PO SCH (20:47)
[2020-02-16] MEDS: hydrALAZINE 10 MG TAB PO SCH ×2 (08:15→20:17)
[2020-02-16] MEDS: Zinc Sulfate 220 MG CAP PO SCH (08:15)
[2020-02-16] MEDS: Apixaban 2.5 MG TAB PO SCH ×2 (08:16→20:15)
[2020-02-16] MEDS: Carvedilol 6.25 MG TAB PO SCH ×2 (08:16→17:27)
[2020-02-16] MEDS: Polyethylene Glycol 3350 17 GM Packet PO SCH (08:16)
[2020-02-16] MEDS: Acetaminophen 325 MG TAB PO PRN (15:28)
[2020-02-16] MEDS: Mirtazapine 15 MG TAB PO SCH (20:15)
[2020-02-16] MEDS: Rosuvastatin 10 MG TAB PO SCH (20:16)
[2020-02-17] MEDS: Polyethylene Glycol 3350 17 GM Packet PO SCH (08:57)
[2020-02-17] MEDS: hydrALAZINE 10 MG TAB PO SCH ×2 (08:57→21:29)
[2020-02-17] MEDS: Carvedilol 6.25 MG TAB PO SCH ×2 (08:58→17:22)
[2020-02-17] MEDS: Apixaban 2.5 MG TAB PO SCH ×2 (08:58→21:30)
[2020-02-17] MEDS: Zinc Sulfate 220 MG CAP PO SCH (08:58)
[2020-02-17] MEDS: Ondansetron ODT 4 MG TAB PO PRN (11:17)
[2020-02-17] MEDS: Lorazepam 0.5 MG TAB PO PRN (12:29)
[2020-02-17] MEDS: Rosuvastatin 10 MG TAB PO SCH (21:28)
[2020-02-17] MEDS: Mirtazapine 15 MG TAB PO SCH (21:29)
[2020-02-18] MEDS: Zinc Sulfate 220 MG CAP PO SCH (09:39)
[2020-02-18] MEDS: Polyethylene Glycol 3350 17 GM Packet PO SCH (09:39)
[2020-02-18] MEDS: Apixaban 2.5 MG TAB PO SCH ×2 (09:39→22:02)
[2020-02-18] MEDS: Carvedilol 6.25 MG TAB PO SCH ×2 (09:39→17:56)
[2020-02-18] MEDS: hydrALAZINE 10 MG TAB PO SCH ×2 (09:39→22:03)
--- NOTE | 2020-02-18 13:34 | PRG ---
DATE OF SERVICE: 02/18/2020 SUBJECTIVE: The patient is up in a bedside chair. She has had no complaint this morning. She has been doing better with physical therapy. She is walking up to 50 feet with a rolling walker and caregiver assistance. Her transfers are getting better. OBJECTIVE: GENERAL: The patient is alert, appears in no distress. She is smiling this morning. VITAL SINGS: Temperature 97.3, pulse rate 64, respirations are 18, O2 saturation 95% on room air, and blood pressure 103/64. LUNGS: Clear. HEART: Regular rate. EXTREMITIES: No edema. ASSESSMENT: 1. Severe generalized weakness. a. Following hospitalization for COVID pneumonia. b. Improving, walking up to 50 feet with assistance and a walker as of 02/17. 2. COVID pneumonia. a. Hospitalized on 01/20 to 01/25 at [facility], rapid COVID test positive on 01/19. b. Treated with IV azithromycin, ceftriaxone, and dexamethasone and required supplemental O2. c. Resolved as of 01/29. 3. COVID infection. a. COVID pneumonia, resolved. b. Complicated by severe weakness, deconditioning, and decline in her functional capability, all that is improving. c. Complicated by COVID encephalopathy that is improving as of 02/17. d. Completed a 10-day period of isolation on 01/29. 4. Chronic atrial fibrillation. a. On chronic anticoagulant with Eliquis and rate controlled. 5. Hypertension, controlled. 6. Status post pacemaker placement. 7. History of breast cancer. a. Status post right mastectomy, 2009. b. No signs of recurrence. 8. Dementia. 9. Depression, improved. 10. Code status, DNR. PLAN: The patient continues to improve. We will continue PT and OT. Job ID: [id number] [facility]
[2020-02-18] MEDS: Mirtazapine 15 MG TAB PO SCH (22:02)
[2020-02-18] MEDS: Rosuvastatin 10 MG TAB PO SCH (22:03)
[2020-02-19] MEDS: Polyethylene Glycol 3350 17 GM Packet PO SCH (08:12)
[2020-02-19] MEDS: hydrALAZINE 10 MG TAB PO SCH ×2 (08:13→22:39)
[2020-02-19] MEDS: Apixaban 2.5 MG TAB PO SCH ×2 (08:13→22:38)
[2020-02-19] MEDS: Zinc Sulfate 220 MG CAP PO SCH (08:13)
[2020-02-19] MEDS: Carvedilol 6.25 MG TAB PO SCH ×2 (08:13→17:20)
--- NOTE | 2020-02-19 12:23 | PRG ---
DATE OF SERVICE: 02/19/2020 SUBJECTIVE: The patient has been doing much better. Physical therapist stated that she is transferring better, still needs some assistance. She is walking now all the way to Physical Therapy Department, which is 150 feet. Nurse said this morning she seemed very calm and was oriented to time. OBJECTIVE: GENERAL: The patient is alert, appears comfortable, in no distress. VITAL SIGNS: Shows a temperature 98.1, pulse 64, respirations 18, O2 saturation 95% on room air, blood pressure 143/83. LUNGS: Clear. HEART: Regular rate. ASSESSMENT: 1. Severe generalized weakness. a. Following hospitalization for COVID pneumonia. b. Improving, walking now up to 150 feet and transferring better as of 02/18. 2. COVID pneumonia. a. Hospitalized on 01/20 to 01/25 at [facility]. Rapid COVID test positive on 01/19. b. Treated with IV azithromycin, ceftriaxone and dexamethasone and require supplemental O2. c. Resolved as of 01/29. 3. COVID infection. a. COVID pneumonia, resolved. b. Complicated by severe weakness deconditioning and decline in her functional capabilities with excellent progress as of 02/18. c. Complicated by COVID encephalopathy that is resolving as of 02/18. d. Completed a 10-day period of isolation on 01/29. 4. Chronic atrial fibrillation. a. On chronic anticoagulant with Eliquis and rate controlled. 5. Hypertension, controlled. 6. Status post pacemaker placement. 7. History of breast cancer. a. Status post right mastectomy, 2009. b. No signs of recurrence. 8. Dementia, stable. 9. Depression, improved. 10. Code status, DNR. PLAN: The patient is making excellent progress. We will continue PT and OT. Job ID: [id number] [facility]
[2020-02-19] MEDS: Rosuvastatin 10 MG TAB PO SCH (22:38)
[2020-02-19] MEDS: Mirtazapine 15 MG TAB PO SCH (22:38)
[2020-02-20] MEDS: Lorazepam 0.5 MG TAB PO PRN ×2 (03:09→21:52)
[2020-02-20 06:44] LABS: Hemoglobin 10.9 g/dL (12.0-16.0); Platelet Count 211 thou/uL (130-400)
[2020-02-20] MEDS: Polyethylene Glycol 3350 17 GM Packet PO SCH (09:19)
[2020-02-20] MEDS: Apixaban 2.5 MG TAB PO SCH ×2 (09:19→21:55)
[2020-02-20] MEDS: Carvedilol 6.25 MG TAB PO SCH ×2 (09:19→16:52)
[2020-02-20] MEDS: hydrALAZINE 10 MG TAB PO SCH ×2 (09:19→22:01)
[2020-02-20] MEDS: Zinc Sulfate 220 MG CAP PO SCH (09:19)
[2020-02-20] MEDS: Rosuvastatin 10 MG TAB PO SCH (21:52)
[2020-02-20] MEDS: Mirtazapine 15 MG TAB PO SCH (21:55)
[2020-02-20] MEDS: Acetaminophen 325 MG TAB PO PRN (21:56)
[2020-02-21] MEDS: Apixaban 2.5 MG TAB PO SCH ×2 (07:54→21:30)
[2020-02-21] MEDS: Carvedilol 6.25 MG TAB PO SCH ×2 (07:54→17:05)
[2020-02-21] MEDS: hydrALAZINE 10 MG TAB PO SCH ×2 (07:54→21:38)
[2020-02-21] MEDS: Zinc Sulfate 220 MG CAP PO SCH (07:54)
[2020-02-21] MEDS: Polyethylene Glycol 3350 17 GM Packet PO SCH (07:55)
--- NOTE | 2020-02-21 10:55 | PRG ---
DATE OF SERVICE: 02/21/2020 SUBJECTIVE: The patient says she is feeling good this morning. Nurse says that she is doing fine, had no new problems or complaints. OBJECTIVE: GENERAL: The patient is sitting up in her bedside chair. She just completed her breakfast. She is alert, talkative, appears comfortable and in no distress. VITAL SIGNS: Temp 97.6, pulse 60, blood pressure 105/62, O2 saturation 98%. LUNGS: Clear. HEART: Regular rate. EXTREMITIES: No edema. ASSESSMENT: 1. Severe generalized weakness. a. Following hospitalization for COVID pneumonia. b. Improving, now walking up to 150 feet. Transferring easier as of 02/20. 2. COVID pneumonia. a. Hospitalized from 01/20 to 01/[address] [facility]. Rapid COVID test positive on 01/19, being treated with IV azithromycin, ceftriaxone, and dexamethasone, required supplemental O2. b. Resolved as of 01/29. 3. COVID infection. a. COVID pneumonia, resolved. b. Complicated by severe weakness, deconditioning, and decline in her functional capabilities with excellent progress as of 02/20. c. Complicated by COVID encephalopathy that is resolving as of 02/20. d. Completed 10-day period of isolation on 01/29. 4. Chronic atrial fibrillation. a. On chronic anticoagulant with Eliquis and rate control. 5. Hypertension, controlled. 6. Status post pacemaker placement. 7. History of breast cancer. a. Status post right mastectomy, 2009. b. No signs of recurrence. 8. Dementia, stable. 9. Depression, improved. 10. Code status, DNR. PLAN: The patient is doing very well. We will continue present care. Continue PT and OT. Job ID: [id number] [facility]
[2020-02-21] MEDS: Acetaminophen 325 MG TAB PO PRN (21:30)
[2020-02-21] MEDS: Rosuvastatin 10 MG TAB PO SCH (21:30)
[2020-02-21] MEDS: Mirtazapine 15 MG TAB PO SCH (21:30)
[2020-02-21] MEDS: Lorazepam 0.5 MG TAB PO PRN (23:21)
[2020-02-22] MEDS: Apixaban 2.5 MG TAB PO SCH ×2 (08:59→20:14)
[2020-02-22] MEDS: Zinc Sulfate 220 MG CAP PO SCH (08:59)
[2020-02-22] MEDS: Carvedilol 6.25 MG TAB PO SCH ×2 (08:59→17:10)
[2020-02-22] MEDS: Polyethylene Glycol 3350 17 GM Packet PO SCH (09:00)
[2020-02-22] MEDS: hydrALAZINE 10 MG TAB PO SCH ×2 (09:00→20:10)
--- NOTE | 2020-02-22 11:14 | PRG ---
DATE OF SERVICE: 02/22/2020 SUBJECTIVE: The patient is sitting up in her bedside chair, visiting with her home caregiver, Jolene. She says she is doing fine. She had no complaint. She is doing excellent with her therapy. OBJECTIVE: GENERAL: The patient is alert, appears in no distress. VITAL SIGNS: Shows temperature 97.7, pulse 60, blood pressure 101/60, respirations 15, O2 saturation 98% on room air. LUNGS: Clear. HEART: Regular rate. ASSESSMENT: 1. Severe generalized weakness. a. Following a hospitalization for COVID pneumonia. b. Improved now walking up to 150 feet. Transferring easier as of 02/21. c. Probably is back and may be exceeding her pre-hospitalization functional capabilities as of 02/21. 2. COVID pneumonia. a. Hospitalized from 01/20 to 01/25 at [facility]. Rapid COVID test positive on 01/19, treated with IV azithromycin and ceftriaxone and dexamethasone, and required supplemental O2. b. Resolved as of 01/29. 3. COVID infection. a. COVID pneumonia, resolved. b. Complicated by severe weakness, deconditioning and decline in her functional capabilities. Excellent progress as of 02/21. c. Complicated by COVID encephalopathy that has resolved with the patient back to her baseline as of 02/21. d. Completed a 10-day period of isolation on 01/29. 4. Chronic atrial fibrillation. a. Chronic anticoagulant with Eliquis and rate controlled. 5. Hypertension, controlled. 6. Status post pacemaker placement. 7. History of breast cancer. a. Status post right mastectomy in 2009. b. No signs of recurrence. 8. Dementia, stable. 9. Depression, controlled. 10. Code status, DNR. PLAN: The patient is making excellent progress. Visiting with her caregiver, Jolene and she feels like she is where they can easily handle her at home. At home, she has 24-hour caregivers. Will tentatively plan on discharge in the morning. Job ID: [id number] [facility]
[2020-02-22] MEDS: Acetaminophen 325 MG TAB PO PRN (20:09)
[2020-02-22] MEDS: Mirtazapine 15 MG TAB PO SCH (20:11)
[2020-02-22] MEDS: Rosuvastatin 10 MG TAB PO SCH (20:13)
[2020-02-23] MEDS: Polyethylene Glycol 3350 17 GM Packet PO SCH (09:18)
[2020-02-23] MEDS: hydrALAZINE 10 MG TAB PO SCH (09:18)
[2020-02-23] MEDS: Lorazepam 0.5 MG TAB PO PRN (09:19)
[2020-02-23] MEDS: Zinc Sulfate 220 MG CAP PO SCH (09:19)
[2020-02-23] MEDS: Apixaban 2.5 MG TAB PO SCH (09:19)
[2020-02-23] MEDS: Carvedilol 6.25 MG TAB PO SCH (09:19)
[2020-02-23 09:20] VITALS: BP 136/73
[2020-02-23 10:32] VITALS: TEMP 98
--- NOTE | 2020-02-24 12:12 | DIS ---
DATE OF ADMISSION: 01/26/2020 DATE OF DISCHARGE: 02/23/2020 FINAL DIAGNOSES: 1. Severe generalized weakness. a. Following hospitalization for COVID pneumonia. b. Excellent progress where she is walking up to 100 feet. Transferring easier with minimal assist as of 02/22. c. The patient has exceeded her functional level prior to her hospitalization as of 02/22. 2. COVID pneumonia. a. Hospitalized from 01/20 to 01/25 at [facility]. Rapid COVID test positive on 01/19, treated with IV azithromycin, ceftriaxone, dexamethasone and required supplemental O2. b. Resolved as of 01/29. 3. COVID infection. a. COVID pneumonia, resolved. b. Complicated by severe weakness, deconditioning, and decline in her functional capability. Excellent progress as of 02/22. c. Complicated by COVID encephalopathy that has resolved and the patient back to her baseline as of 02/22. d. Completed a 10-day period of isolation on 01/29. 4. Chronic atrial fibrillation. a. On chronic anticoagulant with Eliquis and rate controlled. 5. Hypertension, controlled. 6. Status post pacemaker placement. 7. History of breast cancer. a. Status post right mastectomy in 2009. b. No signs of recurrence. 8. Dementia, stable. 9. Depression, controlled. 10. Code status, DNR. SUMMARY: The patient is an 89-year-old female, who lives at home and has ladies who assist her 24/09 with her ADLs and instrumental ADLs. She has a history of chronic atrial fib, hypertension, breast cancer with no signs of recurrence, and mild dementia. The patient was hospitalized at [facility] from 01/20 to 01/25 with COVID pneumonia. Her rapid COVID test was positive on 01/19. She was treated with IV azithromycin, ceftriaxone, and dexamethasone and required supplemental O2. She experienced COVID encephalopathy and she was left extremely weak and deconditioned and was requiring total care. She was sent to [facility] on 01/26/2020 for continued care during her convalescence from this COVID for PT and OT. During the hospitalization, she was initially still encephalopathic and at times a little agitated. She was started on a low-dose of Ativan 0.5 mg that was used twice a day that really helped. The encephalopathy gradually improved. She still was left with a little memory difficulty and a little confusion, but this was back to her baseline. Her lungs remained clear and she showed no evidence of any further signs of pneumonia. The pneumonia had resolved. She was left in isolation until 01/29. Physical Therapy worked with her and she made very gradual progress. By the time of her discharge, she was walking over 150 feet, was transferring just with minimal assistance. Her level of function was better than what it had been prior to her hospitalization. Her condition improved such it is felt that she could be managed back at her home. She has two caregivers who stay with her all the time and will pick back up on her care. While hospitalized, did start her on mirtazapine, which helped with her depression and also initially helped stimulate her appetite. The depression was markedly improved and controlled by her discharge. Arrangements were made for Home Health to scrap picker on the patient's care and continue PT and OT. We will see her in followup in 2 weeks. This may be done by a telemedicine visit. MEDICATIONS: 1. Acetaminophen 325 mg two every 4 hours as needed. 2. Eliquis 2.5 mg b.i.d. 3. Dulcolax suppository 10 mg one per rectum daily p.r.n. 4. Carvedilol 6.25 mg b.i.d. 5. Hydralazine 10 mg b.i.d. 6. Lorazepam 0.5 mg b.i.d. 7. Mirtazapine 30 mg at bedtime. 8. Zofran ODT 4 mg every 4 hours as needed. 9. Omeprazole 20 mg b.i.d. 10. MiraLAX 17 g daily. 11. Crestor 5 mg at bedtime. DIET: Regular diet. ACTIVITY: Ambulate with the use of a walker. Home Health will see the patient and arrange for in-home PT and OT. FOLLOWUP: Follow up in my office in 2 weeks. CODE STATUS: DNR. Job ID: [id number] [facility]
== END 2020-02-23 11:35 | disposition home health service (06) | DRG 947 ==
LOC: MADMS 12:20
PROVIDERS: ADMIT Family Medicine; ATTEND Family Medicine
PROC: 8E0ZXY6 Isolation (ICD-10-PCS; principal; 2020-01-26)
DX: R53.1 Weakness (principal); J12.89 Other viral pneumonia; U07.1 COVID-19; I48.20 Chronic atrial fibrillation, unspecified; G93.49 Other encephalopathy; I10 Essential (primary) hypertension; Z66 Do not resuscitate; E78.5 Hyperlipidemia, unspecified; H40.9 Unspecified glaucoma; Z79.51 Long term (current) use of inhaled steroids; Z95.0 Presence of cardiac pacemaker; Z90.11 Acquired absence of right breast and nipple; Z85.3 Personal history of malignant neoplasm of breast; Z79.01 Long term (current) use of anticoagulants; Z79.899 Other long term (current) drug therapy; Z91.040 Latex allergy status; Z88.0 Allergy status to penicillin; Z88.1 Allergy status to other antibiotic agents; Z88.2 Allergy status to sulfonamides; F03.90 Unspecified dementia, unspecified severity, without behavioral disturbance, psychotic disturbance, mood disturbance, and anxiety; R53.81 Other malaise; F32.9 Major depressive disorder, single episode, unspecified; Z98.84 Bariatric surgery status
CPT/HCPCS: 36415; 80048; 80053; 82565; 85014; 85018; 85025; 85049; J8540; Q0162

== ENCOUNTER 2020-07-08 14:59 | Outpatient (CLI) | payer MEDICARE ==
[2020-07-08 15:21] LABS: Bilirubin Negative (Negative); Blood, Urine Trace (Negative); Clarity Cloudy (Clear); Glucose, Urine (Dipstick) Negative (Negative); Ketone, Urine Trace mg/dL (Negative); Leukocyte Moderate (Negative); Nitrite Positive (Negative); Protein, Urine (Dipstick) 100 mg/dL (Neg-Trace); Urobilinogen 0.2 mg/dL (Less than 2); pH, Urine 5.5 (5.0-9.0)
[2020-07-08 15:23] LABS: Bacteria/HPF 3+ HPF (None Seen); RBC/HPF 0-3 HPF (0-3); WBC/HPF Greater Than 50 HPF (0-3)
== END 2020-07-08 15:00 | disposition home or self-care (01) ==
LOC: MADLAB 14:59
PROVIDERS: ATTEND Family Medicine
DX: R30.0 Dysuria (principal)
CPT/HCPCS: 81001; 87077; 87086; 87186

== ENCOUNTER 2020-12-19 11:00 | Emergency (ER) | payer MEDICARE ==
[2020-12-19 11:59] LABS: #Basophils 0.1 thou/uL (0.0-0.2); #Eosinphils 0.1 thou/uL (0.0-0.7); #Lymphocytes 1.1 thou/uL (1.20-3.40); #Monocytes 0.6 thou/uL (0.11-0.59); #Neutrophils 5.3 thou/uL (1.40-6.50); %Basophils 0.7 % (0.0-1.0); %Eosinophils 1.2 % (0.0-10.0); %Lymphocytes 15.5 % (21.0-51.0); %Monocytes 8.5 % (0.0-10.0); %Neutrophils 74.1 % (42.0-75.0); Mean Corpuscular HGB CONC 33.3 g/dL (32.0-36.0); Mean Corpuscular Hemoglobin 31.7 pg (27.0-31.0); Mean Corpuscular Volume 95.3 fL (78.0-98.0); Mean Platelet Volume 7.8 fL (7.4-10.4); Platelet Count 181 thou/uL (130-400); RBC Distribution Width 11.7 % (11.5-14.5); Red Blood Cell (RBC) Count 4.09 mill/uL (4.20-5.40); White Blood Cell (WBC) Count 7.1 thou/uL (4.8-10.8)
[2020-12-19 12:17] LABS: ALT (SGPT) 13 U/L (8-55); AST (SGOT) 28 U/L (5-34); Albumin 3.6 g/dL (3.4-4.8); Alkaline Phosphatase 61 U/L (40-110); Anion Gap 14 mmol/L (10-20); BUN (Urea Nitrogen) 21 mg/dL (9.8-20.1); Bilirubin, Total 0.5 mg/dL (0.2-1.2); Calc. Creatinine Clearance 0 mL/min (70-130); Calcium 9.2 mg/dL (7.8-10.44); Carbon Dioxide 25 mmol/L (23-31); Chloride 103 mmol/L (98-107); Globulin 3.3 g/dL (2.4-3.5); Glucose 93 mg/dL (83-110); Potassium 4.4 mmol/L (3.5-5.1); Protein, Total 6.9 g/dL (5.8-8.1); Sodium 138 mmol/L (136-145)
== END 2020-12-19 13:15 | disposition home or self-care (01) ==
LOC: MADERS 11:00
DX: R03.1 Nonspecific low blood-pressure reading (principal); I25.10 Atherosclerotic heart disease of native coronary artery without angina pectoris; I10 Essential (primary) hypertension; I48.91 Unspecified atrial fibrillation; Z85.3 Personal history of malignant neoplasm of breast; Z79.899 Other long term (current) drug therapy; Z79.891 Long term (current) use of opiate analgesic; Z79.01 Long term (current) use of anticoagulants
CPT/HCPCS: 71045; 80053; 83605; 83880; 84484; 85025; 93005

== ENCOUNTER 2021-04-16 22:32 | Emergency (ER) | payer OTHER, MEDICARE | END 2021-04-17 00:30 | LOC: MADERS 22:32 | DX: M25.551 Pain in right hip (principal); R07.81 Pleurodynia; I10 Essential (primary) hypertension; I25.10 Atherosclerotic heart disease of native coronary artery without angina pectoris; I48.91 Unspecified atrial fibrillation; W01.0XXA Fall on same level from slipping, tripping and stumbling without subsequent striking against object, initial encounter; Z95.0 Presence of cardiac pacemaker | CPT/HCPCS: 70450; 72125; 72170 ==

== ENCOUNTER 2021-08-11 07:36 | Emergency (ER) | payer MEDICARE ==
[2021-08-11 08:24] LABS: #Eosinphils 0.1 thou/uL (0.0-0.7); #Lymphocytes 1.1 thou/uL (1.20-3.40); #Monocytes 0.5 thou/uL (0.11-0.59); #Neutrophils 4.5 thou/uL (1.40-6.50); %Basophils 0.5 % (0.0-1.0); %Eosinophils 0.9 % (0.0-10.0); %Lymphocytes 17.5 % (21.0-51.0); %Monocytes 7.9 % (0.0-10.0); %Neutrophils 73.2 % (42.0-75.0); Hemoglobin 12.7 g/dL (12.0-16.0); Mean Corpuscular HGB CONC 32.7 g/dL (32.0-36.0); Mean Corpuscular Hemoglobin 30.9 pg (27.0-31.0); Mean Corpuscular Volume 94.5 fL (78.0-98.0); Mean Platelet Volume 7.2 fL (7.4-10.4); Platelet Count 172 thou/uL (130-400); RBC Distribution Width 11.6 % (11.5-14.5); Red Blood Cell (RBC) Count 4.12 mill/uL (4.20-5.40); White Blood Cell (WBC) Count 6.2 thou/uL (4.8-10.8)
[2021-08-11 08:43] LABS: ALT (SGPT) 11 U/L (8-55); AST (SGOT) 19 U/L (5-34); Albumin 3.9 g/dL (3.4-4.8); Alkaline Phosphatase 57 U/L (40-110); Anion Gap 17 mmol/L (10-20); BUN (Urea Nitrogen) 16 mg/dL (9.8-20.1); Bilirubin, Total 0.4 mg/dL (0.2-1.2); Calc. Creatinine Clearance 0 mL/min (70-130); Calcium 9.2 mg/dL (7.8-10.44); Carbon Dioxide 23 mmol/L (23-31); Chloride 105 mmol/L (98-107); Globulin 3.2 g/dL (2.4-3.5); Glucose 95 mg/dL (83-110); Potassium 3.8 mmol/L (3.5-5.1); Protein, Total 7.1 g/dL (5.8-8.1); Sodium 141 mmol/L (136-145)
[2021-08-11 08:43] LABS: Bilirubin Negative (Negative); Blood, Urine Negative (Negative); Clarity Slightly Cloudy (Clear); Glucose, Urine (Dipstick) Negative (Negative); Ketone, Urine Negative (Negative); Leukocyte Negative (Negative); Nitrite Positive (Negative); Protein, Urine (Dipstick) Negative (Neg-Trace); Urobilinogen 0.2 mg/dL (Less than 2); pH, Urine 7.5 (5.0-9.0)
[2021-08-11 08:51] LABS: Bacteria/HPF 3+ HPF (None Seen); RBC/HPF 0-3 HPF (0-3); Squamous Epithelial 0-3 HPF (0-3); WBC/HPF 0-3 HPF (0-3)
== END 2021-08-11 09:20 | disposition home or self-care (01) ==
LOC: MADERS 07:36
DX: I10 Essential (primary) hypertension (principal); N39.0 Urinary tract infection, site not specified; I48.91 Unspecified atrial fibrillation
CPT/HCPCS: 80053; 81003; 81015; 84484; 85025; 93005